=== PATIENT | female | born 1935 | race Caucasian/White ===

== ENCOUNTER 2023-04-18 08:23 | Emergency (ER) | payer OTHER, SELFPAY ==
--- NOTE | 2023-04-18 08:32 | ED.MUSCINJ ---
HPI-Injury
General
Chief Complaint: Musculo-Skeletal Complaint
Source: patient
Exam Limitations: none
Time Seen by Provider: 04/18/23 08:32
Nursing documentation reviewed up to this point in time: agreed with
History of Present Illness-Injury
Initial Injury comments:
88-year-old female with history of asthma, HLD, arthritis bilateral hip replacements, presents stating she slept in her recliner last night and this morning she bent way forward to reach her shoes on the floor and developed sudden right hip pain.
She was able to get up and walk to the bathroom, off and on the toilet and back to her chair with her walker. Hip pain persists, it is now 2/10.' Something does not feel right' in the hip.
Past History
Past History
ED Past Medical History: Asthma, Hypercholesterolemia and Other (arthritis)
ED Past Surgical History: Appendectomy, Cholecystectomy and Orthopedic (Bilateral knee replacements, bilateral hip replacements)
Social History
Tobacco: Non-smoker
Alcohol: None
Drug: None
Personal: Single
Living: with family (Lives with daughter)
Review of Systems
Review of Systems
Allergies reviewed?: Yes
All Other Systems: ROS reviewed and negative except as documented in HPI and ROS
Constitutional: Denies fever
Respiratory: Denies trouble breathing
Cardiac: Denies chest pain
ABD/GI: Denies abdominal pain
: Denies dysuria or difficulty voiding
Musculoskeletal: Reports other (Right hip pain)
Skin: Reports no symptoms
Phy Exam
Physical Exam
Physical Exam:
GENERAL: No acute distress. A&Ox3.
CONSTITUTIONAL: Afebrile.
RESPIRATORY: Regular respirations, nonlabored, lungs clear.
CARDIOVASCULAR: Regular rate and rhythm, no murmurs, no rubs.
GI: Soft, nontender, normal BS
MUSCULOSKELETAL: Lateral aspect of right hip is tender to palpate. She can bend her knee and SLR to 20 degrees of bed with pain. Well perfused. No edema
SKIN: Warm, dry, pink
PSYCH: Normal mood and affect. Well kept, interactive and appropriate
NEUROLOGIC: Awake, alert and oriented. No focal neurological deficits
Injury Course
Orders/Labs/Results
Orders:
Orders
04/18/23 08:38
Hip, Right 2-3 Views [CR Hip - RT w/wo Pel 2-3 Vw*] Urgent
Comment:
Reason For Exam: felt pain reaching down
Include a pelvis x-ray?: No
04/18/23 09:23
Acetaminophen [Tylenol] 1,000 mg PO NOW STA
04/18/23 09:24
Acetaminophen [Tylenol] 1,000 mg .ROUTE .STK-MED ONE
04/18/23 09:36
Acetaminophen 1000MG/100Ml [Ofirmev] 1,000 mg in 100 ml IV ONCE
Acetaminophen IV Indication:: No AK & No Enteral Access
MDM/Problems Addressed
Differential Diagnosis Includes:
hip sprain, dislocation, fracture
MDM/Problems Addressed:
88-year-old female with history of asthma, HLD, arthritis bilateral hip replacements, presents stating she slept in her recliner last night and this morning she bent way forward to reach her shoes on the floor and developed sudden right hip pain.
She was able to get up and walk to the bathroom, off and on the toilet and back to her chair with her walker. Hip pain persists, it is now 2/10.' Something does not feel right' in the hip.
NAD, alert, pleasant
04/18/2023 1120 AM
Hip x-ray read by this examiner, no acute abnormality, specifically no fracture and no dislocation of hardware.
Discussed occult fractures with pt and daughter, they will f/u if not improving
Patient has been out of bed and ambulating
*Critical Care Note
Total Time (30-74mins, 75-104mins- exclusive of procedures): Not Applicable
Patient Management
Social determinants of health affecting care: Strong social support
ED Attending Note
-
Portions of this chart may have been created with voice recognition software.� Occasional wrong word or��sound alike� substitutions may have occurred due to the inherent limitations of voice recognition software.
Discharge Plan
Departure
Patient Disposition: Home (Routine Discharge)
Date of Disposition: 04/18/23
Time of Disposition: 11:17
Patient with high blood pressure during this ER visit?: No
Condition: Good
Discharge Problem:
Soft tissue injury of right hip
Instructions: Muscle Strain (DC), Hip Pain ED
Prescriptions:
No Action
levothyroxine 88 MCG tablet
88 mcg PO DAILY
calcium carbonate 500 MG tablet
500 mg PO DAILY
diphenhydramine-acetaminophen [Tylenol PM Extra Strength] 1 EACH tablet
2 ea PO HS
sertraline 50 MG tablet
50 mg PO DAILY
rosuvastatin [Crestor] 5 mg Tablet
5 mg PO Q48H
Centrum Silver 1 EACH tablet
1 ea PO DAILY
cholecalciferol (vitamin D3) [Vitamin D3] 2,000 UNIT capsule
2,000 unit PO DAILY
Myrbetriq 50 MG tablet extended release 24 hr
50 mg PO DAILY
rosuvastatin [Crestor] 5 mg Tablet
2.5 mg PO Q48H
celecoxib [Celebrex] 200 mg Capsule
200 mg PO DAILY
pantoprazole [Protonix] 40 mg Tablet,Delayed Release (Dr/Ec)
40 mg PO DAILY
oxybutynin chloride 5 mg Tablet Extended Release 24hr
5 mg PO DAILY
Referrals:
Dee Long, DO [Family Provider] - As needed
Activity Restrictions/Additional Instructions:
As we discussed, your hip x-ray shows nothing worrisome.
Tylenol as needed for pain.
See your primary doctor or your orthopedic doctor if your hip is not a lot better in 1 week or not 100% better in 2 to 3 weeks.
Use your walker at all times when up and around until the hip feels better.
Interventions
Interventions:
*Risk Screen - Suicide Last Done: 04/18/23 09:30
*General Assessment Last Done: 04/18/23 09:30
*Neglect/Abuse Screening Last Done: 04/18/23 09:30
ED- Fall Risk Assessment Last Done: 04/18/23 09:30
*ED COVID-19 Vaccine History Last Done: 04/18/23 12:10
*Nursing Disposition Last Done: 04/18/23 12:10
ED-Musculoskeletal Assessment Last Done: 04/18/23 09:30
Discharge Date and Time
Discharge Date/Time: 04/18/23 12:10
[2023-04-18 08:36] VITALS: BP 129/65
[2023-04-18] MEDS: TYLENOL 1000 MG PO (09:34)
[2023-04-18 11:55] VITALS: BP 121/56
== END 2023-04-18 12:10 | disposition home or self-care (01) ==
LOC: EMR 08:23
PROVIDERS: EMERGENCY PHYSICIAN Emergency Medicine; FAMILY PHYSICIAN Family Medicine
DX: S79.911A Unspecified injury of right hip, initial encounter (principal); X50.1XXA Overexertion from prolonged static or awkward postures, initial encounter; J45.909 Unspecified asthma, uncomplicated; E78.00 Pure hypercholesterolemia, unspecified; Z96.643 Presence of artificial hip joint, bilateral
CPT/HCPCS: 99283; 73502

== ENCOUNTER 2023-07-09 01:46 | Inpatient (IN) | payer OTHER, SELFPAY ==
[2023-07-08 20:20] VITALS: BP 116/62; BMI 20.6
[2023-07-08 21:13] VITALS: BP 147/48
--- NOTE | 2023-07-08 21:43 | ED.GENMED ---
History of Present Illness
General
Chief Complaint: Abdominal Symptoms
Source: patient
Exam Limitations: none
Time Seen by Provider: 07/08/23 21:26
Nursing documentation reviewed up to this point in time: agreed with
Travel History
Have you had any contact with someone who has COVID-19?: No
Do you have any symptoms of coronavirus? Fever > 100 degrees, chills, cough, shortness of breath, sore throat, loss of taste or smell, muscle aches, or headache?: No
History of Present Illness
History of Present Illness:
88-year-old female with a past medical history of asthma, hyperlipidemia, hypothyroidism who presents to the emergency room accompanied by her daughters for evaluation of nausea, vomiting, abdominal pain. Patient reports onset of symptoms this
evening around 6 or 7 PM�she was apparently eating dinner and had small amount of food and about a half a glass of wine and began to feel acutely nauseated and had multiple episodes of vomiting/dry heaving. She says she has had shaking chills since
then. She came to the emergency room for assessment. She says she has had occasional upper abdominal discomfort and belching with meals recently but never severe nausea and vomiting like this. She did have some loose stools yesterday morning but
no diarrhea today. She denies any recent URI symptoms. She denies any chest pain. She denies any shortness of breath. She denies any headache. Denies any dizziness. She denies any other complaints. She is status post cholecystectomy, denies
any other abdominal surgeries.
Past History
Past History
ED Past Medical History: Asthma, Hypercholesterolemia and Other (arthritis)
ED Past Surgical History: Appendectomy, Cholecystectomy and Orthopedic (Bilateral knee replacements, bilateral hip replacements)
Social History
Tobacco: Non-smoker
Alcohol: None
Drug: None
Personal: Single
Living: with family (Lives with daughter)
Review of Systems
Review of Systems
All Other Systems: ROS reviewed and negative except as documented in HPI and ROS
Constitutional: Denies fever or chills
Respiratory: Denies cough or trouble breathing
Cardiac: Denies chest pain or palpitations
ABD/GI: Reports abdominal pain, nausea, vomiting and diarrhea
: Denies dysuria, frequency or flank pain
Musculoskeletal: Denies neck pain or back pain
Neurological: Denies dizzy, headache, weakness or numbness
Phy Exam
Physical Exam
Physical Exam:
General: Awake, alert; holding emesis bag and occasionally dry heaving
Head: Normocephalic, atraumatic
Eyes: Conjunctiva normal, sclera anicteric
Throat: Airway intact, handling secretions
Neck: Trachea midline, supple without meningismus
Lungs: Clear to auscultation bilaterally, no wheezing, rales, rhonchi
Heart: Regular rate and rhythm, no murmurs, gallops, or rubs
Abd: Soft, non distended, mildly tender across the upper abdomen
Neuro: Cranial nerves grossly intact, speech fluid
Skin: no rash
Extremities: No edema in extremities, equal pulses in all extremities
Scores
Heart Failure Risk
Heart Failure Risk Score: Not Applicable
Heart Score for Chest Pain Patients
STEMI patient?: Not applicable
Withdrawal Assessment of Alcohol
Withdrawal Assessment Completed?: Not applicable
Course
Orders/Labs/Results
Orders:
Orders
07/08/23 20:25
EKG [Electrocardiogram (*1)] Urgent
Reason for Study: Abdominal Pain
EKG- Treatment ONCE
07/08/23 21:42
CT Abd/pelvis W Iv Cont Urgent
Comment:
Reason For Exam: abd pain, N/V
07/08/23 21:43
0.9% Sodium Chloride 1000 ml [Nss] 1,000 ml IV BOLUS
Ondansetron Injectable [Zofran] 4 mg IV NOW STA
07/08/23 21:47
COVID-19 Antigen Urgent
Source: Nasal Swab
Complete Blood Count/With Diff Urgent
Comprehensive Metabolic Panel Urgent
Lipase Urgent
Magnesium Urgent
Troponin I Urgent
07/08/23 21:57
CR Obstruct Series W/pa Chest Urgent
Comment:
Reason For Exam: N/V, abd pain
07/08/23 23:44
Urinalysis Reflex To Culture Urgent
Date Specimen was Collected: 07/08/23
Time Specimen was Collected: 23:43
Abnormal Lab Results
07/08/23
21:47
WBC 15.4 H 10^3/uL
(4.8-10.8)
RBC 3.54 L 10^6/uL
(4.20-5.40)
Hgb 11.0 L g/dL
(12.0-16.0)
Hct 32.9 L %
(37.0-47.0)
MCH 31.1 H pg
(27.0-31.0)
MPV 10.7 H fL
(7.4-10.4)
Abs Immat Gran (auto) 0.1 H 10^3/uL
(0-0.05)
Absolute Neuts (auto) 13.1 H 10^3/uL
(1.4-6.5)
Immature Gran % 0.6 H %
(0-0.5)
Neutrophils % 85.0 H %
(42.2-75.2)
Lymphocytes % 9.5 L %
(20.5-51.1)
BUN 27 H mg/dl
(7-17)
Glucose 150 H mg/dl
(70-99)
Alkaline Phosphatase 133 H U/L
(38-126)
07/08/23 21:47
07/08/23 21:47
Vital Signs
Initial and Last Documented VS:
Initial Vital Signs
Temp Pulse Resp BP Pulse Ox
36.1 C 58 18 116/62 100
07/08/23 20:20 07/08/23 20:20 07/08/23 20:20 07/08/23 20:20 07/08/23 20:20
Last Documented Vital Signs
Temp Pulse Resp BP Pulse Ox
36.1 C 50 17 147/48 97
07/08/23 20:20 07/08/23 22:30 07/08/23 22:30 07/08/23 21:13 07/08/23 22:30
Procedures
IV Access
Indication: RN unable to obtain and Physician skill needed
Performed by:: Lit Guerra MD
Site:: left forearm
Gauge:: 20G
Ultrasound Guidance: No
MDM/Problems Addressed
Differential Diagnosis Includes:
Gastritis, pancreatitis, bowel obstruction, gastroenteritis, anginal equivalent
MDM/Problems Addressed:
88-year-old female presents to the emergency room for evaluation of nausea and vomiting with abdominal discomfort since eating dinner tonight. She arrives to us with normal vital signs. Physical exam as above. EKG shows no STEMI. Plan to place
an IV will treat with antiemetic and fluids. Will send labs including CBC and CMP, lipase, troponin. Will start with obstruction series but plan likely for CT abdomen pelvis. Will monitor closely reassess after the above.
Labs reviewed: CBC shows leukocytosis to 15.4, marginal anemia. CMP no clinically significant abnormalities. Troponin undetectable. Her lipase was normal. Her obstruction series showed no clear signs of obstruction but she does have gastric
distention and likely hiatal hernia. Will follow-up with CT of the abdomen pelvis. Clinical reassessment nausea greatly improved with Zofran, no longer vomiting. Continue to monitor.
CT abdomen pelvis read by [facility] very large hiatal hernia with marked gastric distention�there is a question of gastric volvulus. Case discussed with general surgery to review. Recommended NG tube for decompression. Will plan to admit
for continued management and surgical consultation. Discussed with hospitalist for admission.
*Radiology
Radiology exam reviewed: radiology read reviewed
*Pulse Oximetry
Patient hypoxic: no
*EKG
Interpreted by ED Provider?: Yes
Heart Rate: 44
Rate: bradycardiac
Rhythm: sinus and sinus arrhythmia
Furman: normal axis
Interval: first degree heart block
QRS Pattern: right bundle branch block
Ischemia: no ischemia
*Critical Care Note
Total Time (30-74mins, 75-104mins- exclusive of procedures): Not Applicable
Data Reviewed
Review of Other/Old Records Reveals: Labs and Records
Source: patient, records and family
Patient Management
Discussion with other providers: Hospitalist (Discussed with hospitalist) and Back Wedger (Discussed with general surgery)
Escalation/DeEscalation of care consider admission/obs:
Admission indicated
ED Attending Note
-
Portions of this chart may have been created with voice recognition software.� Occasional wrong word or��sound alike� substitutions may have occurred due to the inherent limitations of voice recognition software.
Discharge Plan
Departure
Patient Disposition: Admit
Date of Disposition: 07/08/23
Time of Disposition: 23:52
Admit to doctor: Erich
Presentation/result/management discussed w/ accepting MD/DO: Hospitalist
Discharge Problem:
Hernia, hiatal, Nausea & vomiting
Prescriptions:
No Action
levothyroxine 88 MCG tablet
88 mcg PO DAILY
calcium carbonate 500 MG tablet
500 mg PO DAILY
diphenhydramine-acetaminophen [Tylenol PM Extra Strength] 1 EACH tablet
2 ea PO HS
sertraline 50 MG tablet
50 mg PO DAILY
rosuvastatin [Crestor] 5 mg Tablet
5 mg PO Q48H
Centrum Silver 1 EACH tablet
1 ea PO DAILY
cholecalciferol (vitamin D3) [Vitamin D3] 2,000 UNIT capsule
2,000 unit PO DAILY
Myrbetriq 50 MG tablet extended release 24 hr
50 mg PO DAILY
rosuvastatin [Crestor] 5 mg Tablet
2.5 mg PO Q48H
celecoxib [Celebrex] 200 mg Capsule
200 mg PO DAILY
pantoprazole [Protonix] 40 mg Tablet,Delayed Release (Dr/Ec)
40 mg PO DAILY
oxybutynin chloride 5 mg Tablet Extended Release 24hr
5 mg PO DAILY
Referrals:
Dee Long DO [Family Provider] -
Interventions
Interventions:
*Risk Screen - Suicide Last Done: 07/08/23 20:20
*Neglect/Abuse Screening Last Done: 07/08/23 20:20
ED- Fall Risk Assessment Last Done: 07/08/23 20:20
CM-Nikinw-Qyorhusklt Assessment Last Done: 07/08/23 22:56
Discharge Date and Time
Print Language: GUAMANIAN
[2023-07-08] MEDS: ZOFRAN 4 MG IV (21:54)
[2023-07-08] MEDS: NSS 1000 IV (21:55)
[2023-07-08 21:58] LABS: % Basophils 0.3 % (0-2); % Eosinophils 0.4 % (0-6); % Immature Granulocytes 0.6 % (0-0.5); % Lymphocytes 9.5 % (20.5-51.1); % Monocytes 4.2 % (1.7-9.3); Absolute Basophils 0.1 10^3/uL (0-0.2); Absolute Eosinophils 0.1 10^3/uL (0-0.7); Absolute Immature Granulocytes 0.1 10^3/uL (0-0.05); Absolute Lymphocytes 1.5 10^3/uL (1.2-3.4); Absolute Monocytes 0.6 10^3/uL (0.1-0.6); Absolute Neutrophils 13.1 10^3/uL (1.4-6.5); Hematocrit 32.9 % (37.0-47.0); Mean Corp Hgb Conc. 33.4 g/dL (33.0-37.0); Mean Corpuscular Hgb 31.1 pg (27.0-31.0); Mean Corpuscular Volume 92.9 fL (81.0-99.0); Mean Platelet Volume 10.7 fL (7.4-10.4); Nucleated Red Blood Cells % 0 %; Platelet Count 138 10^3/uL (130-400); Red Blood Cell Count 3.54 10^6/uL (4.20-5.40); Red Cell Dist. Width 12.6 % (11.5-14.5); White Blood Cell Count 15.4 10^3/uL (4.8-10.8)
[2023-07-08 22:13] LABS: ALT (SGPT) 12 U/L (0-35); AST (SGOT) 30 U/L (14-36); Albumin 4.8 g/dl (3.5-5.0); Alkaline Phosphatase 133 U/L (38-126); Blood Urea Nitrogen 27 mg/dl (7-17); Calcium 9.8 mg/dl (8.4-10.2); Carbon Dioxide 26 mmol/L (22-30); Chloride 104 mmol/L (98-107); Estimated Creatinine Clearance 49 ml/min; Glucose 150 mg/dl (70-99); Lipase 285 U/L (23-300); Magnesium 2.1 mg/dl (1.6-2.3); Potassium 3.7 mmol/L (3.5-5.1); Sodium 140 mmol/L (135-145); Total Bilirubin 0.7 mg/dl (0.2-1.3); Total Protein 6.9 g/dl (6.3-8.2); eGFR > 60.00
[2023-07-08 22:25] LABS: Troponin I < 0.012 ng/ml
[2023-07-08 22:40] LABS: COVID-19 Antigen Negative (Negative)
[2023-07-09] VITALS (13 sets, daily range): BP systolic 128–178; BP diastolic 69–97; PULSE 78–98; O2SAT 96; BMI 20.6
[2023-07-09 00:04] LABS: Urine Albumin Trace (Neg - Trace); Urine Bilirubin Negative (Negative); Urine Character Clear (Clear); Urine Color Yellow; Urine Glucose 1+ (Negative); Urine Ketone Trace (Negative); Urine Leukocyte 2+ (Negative); Urine Nitrite Negative (Negative); Urine Occult Blood Trace (Negative); Urine Urobilinogen Negative (Neg - 1+); Urine pH 6.5 (5.0-9.0)
[2023-07-09 00:58] LABS: Urine Amorphous Seen; Urine Squamous Cell >30 /LPF (Few)
[2023-07-09 01:01] LABS: Urine Bacteria Moderate (Negative)
--- NOTE | 2023-07-09 01:10 | HPS.HSE ---
Family Physician
-
Family Physician: Dee Long
Chief Complaint
-
Nausea
History of Present Illness
Patient is an 88y F with PMH significant for hiatal hernia / GERD, hypothyroidism and depression who presents to ED complaining of nausea and abdominal discomfort. Patient states that she has noted frequent belching / indigestion symptoms for
the past several months or a year. This evening, she was sitting at dinner with her family when she developed severe nausea. She had some mild upper abdominal discomfort that quickly resolved. Patient did not have any emesis. She presented to
the ED for evaluation and was noted on CT scan to have gastric outlet obstruction secondary to hiatal hernia with possible volvulus.
NG was placed for decompression and patient is to be admitted for further evaluation.
Patient denies any episodes of emesis. She has not had significant abdominal pain, chest pain, etc.
She had an episode of diarrhea / fecal incontinence last week - which happens on occasion when she drinks coffee. Otherwise no bowel issues.
Patient states that she developed palpitations recently and her dose of T4 was reduced as a result.
No other recent complaints.
No other recent med changes.
Family notes that patient has been losing weight - perhaps 10 lbs weight loss over the past year - unintentional.
Medical History
Past Medical History
Past Medical History: Reports Other
Additional Past Medical History:
Hypothyroidism
Asthma
Anxiety / Depression
Hiatal Hernia / GERD
OAB
Heart Murmur / Aortic Stenosis (mild - 2020)
Past Surgical History: Reports Other
Additional Past Surgical History:
Bilateral TKA
Bilateral SUKHWINDER
Partial Hysterectomy
Cholecystectomy
Social History
Tobacco: Non-smoker
Alcohol: Occasional
Drug: None
Family History
Family History: Not pertinent
Allergies / Home Medications
Allergies reflects when Allergies were last updated in [email or web address].
Home Medications with original date entered in [email or web address]
Allergy/Medication List:
Allergies
Allergy/AdvReac Type Severity Reaction Status Date / Time
No Known Allergies Allergy Verified 07/08/23 20:24
Home Medications
sertraline 50 mg tablet 50 mg PO DAILY 01/06/19
celecoxib 200 mg capsule (Celebrex) 200 mg PO DAILY 02/09/23
levothyroxine 75 mcg tablet 75 mcg PO DAILY 07/09/23
pantoprazole 40 mg granules delayed-release for susp in packet (Protonix) 40 mg PO DAILY 07/09/23
rosuvastatin 5 mg tablet 5 mg PO DAILY 07/09/23
Review of Systems
-
History Source: Patient
A 12 point ROS was completed and negative except as noted: Yes
Constitutional: Denies Fever or Chills
EENT: Denies Sore Throat
Respiratory: Denies Cough or Trouble Breathing
Cardiac: Reports Palpitations; Denies Chest Pain
Abdomen/GI: Reports Abdominal Pain, Nausea and Other (Bruxism); Denies Vomiting, Diarrhea, Bloody Stools or Black Stools
: Denies Dysuria, Frequency or Flank Pain
Musculoskeletal: Denies Joint Pain or Edema
Neurological: Denies Dizzy or Headache
Psych: Denies Depression or Anxiety
Physical Exam
Vital Signs
Vital Signs
Temp Pulse Resp BP Pulse Ox
97 F 49 25 147/48 97
07/08/23 20:20 07/09/23 00:00 07/09/23 00:00 07/08/23 21:13 07/09/23 00:00
Physical Exam
General: Other (88y F in no acute distress.)
HEENT: Moist mucous membranes, PERRLA and Other (NG in place in the R nostril draining light crump gastric contents with occasional bright red blood.)
Respiratory: Clear; No Wheezes, Rales or Rhonchi
Cardiac: S1/S2, Irregular Rhythm and Murmur (III/ TOREY)
GI: Soft, Non Distended, Normal Bowel Sounds and Other (Mildly tender in LUQ / epigastric region. No rebound / guarding.)
Musculoskeletal: No Clubbing, No Cyanosis and No Edema
Neuro: AO x 3 and Nonfocal/grossly intact
Laboratory Results
-
07/08/23:47
07/08/23:47
Laboratory Results
Total Bilirubin 0.7 mg/dl (0.2-1.3) 07/08/23:47
AST 30 U/L (14-36) 07/08/23:
ALT 12 U/L (0-35) 07/08/23:
Alkaline Phosphatase 133 U/L (38-126) H 07/08/23:47
Troponin I < 0.012 ng/ml 07/08/23:
Lipase 285 U/L (23-300) 07/08/23:47
Impression/Plan
-
A/P: Patient is an 88y F with PMH significant for hypothyroidism and depression who presents to ED complaining of severe nausea this evening.
Gastric Outlet Obstruction
Hiatal Hernia
Possible Gastric Volvulus
- Admit for further evaluation and treatment.
- Continue NG decompression.
- Supportive care, NPO, IVFs, antiemetics, etc.
- BID PPI - IV for now.
- Surgery evaluation for additional recommendations.
- Follow for any new / worsening symptoms.
Leukocytosis
- Suspect this is reactive due to acute process.
- Patient is afebrile and not toxic-appearing.
- Observe off of abx for now.
- Check lactate level.
- Follow for any fever, new symptoms, etc.
Sinus Arrhythmia
- Patient with sinus arrhythmia noted on tele and EKG.
- She reports recent palpitations and resultant decrease in her T4 supplementation.
- Monitor on telemetry.
- Rhythm does not appear consistent with A-Fib.
- Consider Cardiology evaluation if any new / worsening arrhythmia.
Hypothyroidism
- Recent decrease in T4 dose from 88mcg to 75mcg per patient.
- Hold for now while NPO.
- Consider IV replacement if patient remains NPO for prolonged period.
Anxiety / Depression
- Stable. Holding Zoloft acutely while NPO.
DVT Prophylaxis: SCDs
Code Status: DNR
[2023-07-09 02:29] LABS: Lactic Acid 1.2 mmol/L (0.7-2.0)
[2023-07-09] MEDS: LR 1000 IV ×2 (02:30→13:33)
--- NOTE | 2023-07-09 06:12 | PTCARENOTE ---
House uniform force captain aware of high BPs throughout the night, no new orders at this time.
--- NOTE | 2023-07-09 06:20 | W.PN.UPDATE ---
Update Note
Progress Note Update
RN notified WOOD FLOORING SPECIALIST of BP 170's/80's HR 40's, Patient asymptomatic, did repeat EKG shows NSR with 1st degree HB.
[2023-07-09 07:54] LABS: Hemoglobin 10.9 g/dL (12.0-16.0); Mean Corpuscular Hgb 31.2 pg (27.0-31.0); Mean Corpuscular Volume 94.6 fL (81.0-99.0); Mean Platelet Volume 11.4 fL (7.4-10.4); Platelet Count 119 10^3/uL (130-400); Red Blood Cell Count 3.49 10^6/uL (4.20-5.40); Red Cell Dist. Width 12.5 % (11.5-14.5); White Blood Cell Count 10.1 10^3/uL (4.8-10.8)
[2023-07-09] MEDS: NSS (PRESERVATIVE FREE) 10 ML IV ×2 (07:58→20:07)
[2023-07-09] MEDS: PROTONIX IV 40 MG IV ×2 (07:58→20:07)
[2023-07-09] MEDS: FLUSH (NSS) 2 FLUSH IV (07:58)
--- NOTE | 2023-07-09 08:08 | CON.GS ---
Consultation
-
Reason for Consultation: Hiatal hernia with gastric outlet obstruction
Medical History
-
Chief Complaint: Abdominal pain, dry heaves
History of Present Illness:
Patient is a 88-year-old female who was in her usual baseline state of health until yesterday evening when she developed the acute onset of abdominal pain, bloating/distention and dry heaves during dinner with her friends. It was rather abrupt in
onset. She had to excuse herself from the dinner table and went to the bathroom when she thought she was going to vomit but could not. This prompted her to present to the emergency department for evaluation yesterday evening. She was found to
have a paraesophageal hernia with resultant gastric volvulus/gastric outlet obstruction.
Patient states that she was unaware of the presence of her hiatal hernia prior to this. She has had occasional slight/mild dysphagia but has never thought much of it. She is treated for GERD and only has mild heartburn symptoms.
Past Medical History
Past Medical History: Other (GERD, hypothyroidism, asthma, aortic stenosis last documented as mild in 2020 on echo)
Past Surgical History: Other (Bilateral total knee, bilateral hip, partial hysterectomy, cholecystectomy)
Social History
Tobacco: Non-Smoker
Alcohol: Occasional
Living: Other (Lives in [address] [place] [address] community, independent living with her daughter)
Family History
Family History: Reviewed & Not Pertinent
Allergies / Home Medications
Allergy/AdvReac Type Severity Reaction Status Date / Time
No Known Allergies Allergy Verified 07/08/23 20:24
�Medication �Instructions �Recorded �Confirmed �Type
sertraline 50 mg tablet 50 mg PO DAILY 01/06/19 07/09/23 History
celecoxib 200 mg capsule (Celebrex) 200 mg PO DAILY 02/09/23 07/09/23 History
levothyroxine 75 mcg tablet 75 mcg PO DAILY 07/09/23 07/09/23 History
pantoprazole 40 mg granules 40 mg PO DAILY 07/09/23 07/09/23 History
delayed-release for susp in packet
(Protonix)
rosuvastatin 5 mg tablet 5 mg PO DAILY 07/09/23 07/09/23 History
Review of Systems
-
History Source: Patient
All other systems: Negative unless noted
A 10 point review of systems was completed, and was negative except as per HPI.
Physical Exam
Vital Signs
Temp Pulse Resp BP Pulse Ox
98.9 F 78 18 164/79 97
07/09/23 07:15 07/09/23 07:15 07/09/23 07:15 07/09/23 07:15 07/09/23 07:15
07/08/23 07/09/23 07/10/23
06:59 06:59 06:59
Actual Weight 54.431 kg
Body Mass Index (BMI) 20.6
Lab Results
07/09/23 06:18
WBC 10.1 10^3/uL (4.8-10.8) 07/09/23 06:18
Hgb 10.9 g/dL (12.0-16.0) L 07/09/23 06:18
Hct 33.0 % (37.0-47.0) L 07/09/23 06:18
Plt Count 119 10^3/uL (130-400) L 07/09/23 06:18
Abs Immat Gran (auto) 0.1 10^3/uL (0-0.05) H 07/08/23 21:47
Neutrophils % 85.0 % (42.2-75.2) H 07/08/23 21:47
Physical Exam
General: Well Developed, Well Nourished, No Apparent Distress, Comfortable and Other (Elderly but appears younger than stated age)
HEENT: Normocephalic, Anicteric and Moist Mucous Membranes
Respiratory: Non Labored Respirations
Cardiac: Regular Rhythm
GI: Soft, Non Tender, Non Distended and Other (No rebound rigidity or guarding)
Skin: Warm
Neuro: AO x 3
Psych: Calm
Data Reviewed
-
Radiology: Image Personally Visualized and interpreted, Discussed with Physician, Discussed with Patient and Discussed with Family
CT Scan: Image Personally Visualized and interpreted, Discussed with Physician, Discussed with Patient and Discussed with Family
Labs: Labs Reviewed by me
Assessment / Plan
-
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
Patient has gotten considerable relief with NG tube decompression indicating probable detorsion with initial decompression.
There is currently minimal drainage in the canister at hospital bedside.
Abdominal examination benign with essentially no tenderness and no significant distention or succussion splash in the left upper quadrant.
AFVSS this a.m.
Plan: Obtain abdominal x-ray to evaluate for NG tube position and gastric distention
Otherwise maintain NG tube decompression for now, n.p.o., IV fluid hydration
Briefly discussed with patient treatment options which would include either formal surgical correction of her hiatal hernia versus gastropexy to reduce the risk of torsion/organoaxial volvulus. Given patient's advanced age I advised her that I
would lean towards laparoscopic gastropexy over formal repair.
[2023-07-09 08:09] LABS: Blood Urea Nitrogen 21 mg/dl (7-17); Calcium 9.6 mg/dl (8.4-10.2); Carbon Dioxide 23 mmol/L (22-30); Chloride 104 mmol/L (98-107); Estimated Creatinine Clearance 57 ml/min; Glucose 123 mg/dl (70-99); Potassium 4.1 mmol/L (3.5-5.1); Sodium 140 mmol/L (135-145); eGFR > 60.00
[2023-07-09 08:29] LABS: TSH Reflex To Free T4 0.06 uIU/ml (0.47-4.68)
[2023-07-09 08:58] LABS: Free T4 1.44 ng/dl (0.78-2.19)
--- NOTE | 2023-07-09 10:12 | W.PN.UPDATE ---
Update Note
Progress Note Update
Patient seen and examined after post midnight admission. Denies CP/SOB/abd pain. Vital signs stable. No acute distress, regular rate and rhythm, normal S1-2, 3/6 harsh systolic murmur. Clear to auscultation bilaterally. Positive bowel sounds,
soft, nontender, nondistended. Case discussed with surgery. NG tube has likely decompressed and realigned her stomach. Will check an abdominal x-ray today. Dr. Pelletier did mention that the patient had mild aortic stenosis in the past. The
question of repeat echocardiogram came up and I do think this is reasonable considering the patient's advanced age. I have also reviewed the patient's ECGs. She had marked sinus bradycardia on her initial ECG with first-degree AV block. Her
subsequent ECG with T wave inversions in the anterior leads. Considering all of this I think it is reasonable for cardiology to assess regarding perioperative cardiovascular risk assessment for noncardiac surgery.
--- NOTE | 2023-07-09 13:22 | CON.CAR ---
Consultation
Consultation Request
Date/Time Consultation Requested: July 09, 2023
Date/Time Consultation Performed: July 09, 2023
Requesting Provider: Hospitalist
Performing Provider: Lukasz
Reason for Consultation: Preop cardiovascular exam
Medical History
-
Chief Complaint: Nausea
History of Present Illness:
88-year-old female with history of hiatal hernia/heartburn, hypothyroidism, mild aortic stenosis, and depression who is here today for nausea and abdominal discomfort. The patient says that she had noticed over the last couple of months to a year
frequent belching and indigestion. However, yesterday evening she was at dinner with her family and she developed severe nausea. She had some upper abdominal discomfort as well but then that quickly resolved. She did not have any emesis. She
then presented to the emergency room for further evaluation. On CT scan she was noted to have gastric outlet obstruction secondary to I hiatal hernia and possible volvulus. An NG tube was then placed for decompression and she was admitted for
further evaluation. Additionally, she tells me she is able to walk a flight of stairs without any issue. Her main concern with ambulation is balance issues and she would not want to fall.
ECG shows sinus rhythm with first-degree AV block and right bundle branch block
Past Medical History
Past Medical History: Other (hiatal hernia/heartburn, hypothyroidism, mild aortic stenosis, and depression)
Past Surgical History: Other (Bilateral TKA Bilateral SUKHWINDER Partial Hysterectomy Cholecystectomy)
Social History
Tobacco: Non-Smoker
Alcohol: Occasional
Drug: None
Family History
Family History: Reviewed & Not Pertinent
Allergies / Home Medications
Allergy/AdvReac Type Severity Reaction Status Date / Time
No Known Allergies Allergy Verified 07/08/23 20:24
�Medication �Instructions �Recorded �Confirmed �Type
sertraline 50 mg tablet 50 mg PO DAILY 01/06/19 07/09/23 History
celecoxib 200 mg capsule (Celebrex) 200 mg PO DAILY 02/09/23 07/09/23 History
levothyroxine 75 mcg tablet 75 mcg PO DAILY 07/09/23 07/09/23 History
pantoprazole 40 mg granules 40 mg PO DAILY 07/09/23 07/09/23 History
delayed-release for susp in packet
(Protonix)
rosuvastatin 5 mg tablet 5 mg PO DAILY 07/09/23 07/09/23 History
Review of Systems
-
All other systems: Negative unless noted
Physical Exam
Vital Signs
Temp Pulse Resp BP Pulse Ox
97.6 F 84 18 148/74 97
07/09/23 10:55 07/09/23 10:55 07/09/23 10:55 07/09/23 10:55 07/09/23 10:55
Lab Results
07/09/23 06:18
07/09/23 06:18
Troponin I < 0.012 ng/ml 07/08/23 21:47
Physical Exam
General: Well Developed and No Apparent Distress
HEENT: Normocephalic
Respiratory: Clear and Non Labored Respirations
Cardiac: S1/S2 and Murmur (3/6 systolic murmur )
GI: Soft
Musculoskeletal: No Clubbing, No Cyanosis and No Edema
Skin: Warm and Dry
Neuro: AO x 3
Psych: Calm
Impression / Plan
-
88-year-old female with history of hiatal hernia/heartburn, hypothyroidism, mild aortic stenosis, and depression who is here today for nausea and abdominal discomfort found to have gastric outlet obstruction secondary to a type III paraesophageal
hernia with resultant organoaxial volvulus.
Preop cardiovascular exam
-Mehnaz has no significant symptoms of ischemia, heart failure, or arrhythmia. She is likely a moderate risk candidate given her age and medical history. However, she is able to do at least 1 flight of stairs and achieve greater than 4 METS and
needs no further medications or testing prior to surgery. However, given her history of mild aortic stenosis on echocardiogram from July 2020 it is reasonable to update to see if there has been any progression in .
Mild
-Update echocardiogram last was July 2020
Data Reviewed
-
EKG: Tracing Personally Visualized and interpreted (sr)
Medical Tests (Nuc Med, Echo etc): Report Reviewed by me
Labs: Labs Reviewed by me
--- NOTE | 2023-07-09 14:58 | CM ---
CM met with pt bedside along with her two daughters (Etta santamaria by Chandrika and Rowena santamaria by Jorge Albertoaletha)
Pt resides with her dtr/Chandrika in a [place] with [address]
Pt is independent with her ADLs- utilizing a quad for ambulation outdoors, has a WW fo ruse as needed
Pt drives+
Pt has no VN hx and hx of rehab in [place]
Pt has a LTC insurance policy
PCP- Dee Long
Rx- [facility] Pemberton
PT following with recommendations of VN vs SNF
Plan to follow medical tx plan and progression through course of hospitalization
Aware will need [employer] auth if SNF on dc
Discharge Disposition- anticipate home with VN
[2023-07-10] VITALS (17 sets, daily range): BP systolic 105–154; BP diastolic 51–103; BMI 20.7
[2023-07-10] MEDS: LR 1000 IV (02:26)
[2023-07-10 07:40] LABS: Hematocrit 31.8 % (37.0-47.0); Hemoglobin 10.6 g/dL (12.0-16.0); Mean Corp Hgb Conc. 33.3 g/dL (33.0-37.0); Mean Corpuscular Hgb 31.2 pg (27.0-31.0); Mean Corpuscular Volume 93.5 fL (81.0-99.0); Mean Platelet Volume 10.6 fL (7.4-10.4); Platelet Count 143 10^3/uL (130-400); Red Cell Dist. Width 12.7 % (11.5-14.5); White Blood Cell Count 12.1 10^3/uL (4.8-10.8)
[2023-07-10 08:08] LABS: Blood Urea Nitrogen 23 mg/dl (7-17); Calcium 9.5 mg/dl (8.4-10.2); Carbon Dioxide 29 mmol/L (22-30); Chloride 103 mmol/L (98-107); Estimated Creatinine Clearance 57 ml/min; Glucose 86 mg/dl (70-99); Potassium 4.2 mmol/L (3.5-5.1); Sodium 140 mmol/L (135-145); eGFR > 60.00
--- NOTE | 2023-07-10 09:17 | W.PN.CD ---
Addendum entered and electronically signed by Lit Deleon MD 07/10/23 12:52:
-
As anticipated based on murmur her echo shows has progressed to severe.
Cardiac risk is high and anesthesia team needs to be alerted to the severe and consider additional care and monitoring.
Surgery and hospitalist updated via [email or web address] message.
Original Note:
Today's Communication / Plan
-
Await echo
NSQIP for
Impression / Plan
-
88-year-old female with history of hiatal hernia/heartburn, hypothyroidism, mild aortic stenosis (echo 07/2020, mean 25 mmHg/YVETTE est 1.3 cm2), and depression presented nausea and abdominal discomfort found to have gastric outlet obstruction secondary
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
Preop cardiovascular risk assessment
- NSQIP suggests low cardiac risk
- Will see if the echo ordered changes our impression
Mild in 2020
- Echo ordered for today
Subjective:
Feels well. No CP or dyspnea
Physical Exam
Vital Signs/Labs
Vital Signs
Temp Pulse Resp BP Pulse Ox
98.3 F 66 16 143/69 98
07/10/23 07:40 07/10/23 07:40 07/10/23 07:40 07/10/23 07:40 07/10/23 07:40
07/09/23 07/10/23 07/11/23
06:59 06:59 06:59
Actual Weight 54.431 kg
07/10/23 07:20
07/10/23 07:20
Magnesium 2.1 mg/dl (1.6-2.3) 07/08/23 21:47
Free T4 1.44 ng/dl (0.78-2.19) 07/09/23 06:18
LAB Results
07/08/23
21:47
Troponin I < 0.012
Physical Exam
Constitutional: No acute distress
EENT: Anicteric
Cardiovascular: Rhythm & rate is regular, Pedal edema is absent and Systolic murmur present
Respiratory: Respiratory effort normal and Lungs clear to auscul.
GI: Soft and Distention absent
Neuro/Psych: AO x 3
Data Reviewed
-
Date of Service: July 10, 2023
[2023-07-10] MEDS: PROTONIX IV 40 MG IV ×2 (10:10→19:38)
[2023-07-10] MEDS: NSS (PRESERVATIVE FREE) 10 ML IV ×2 (10:10→19:38)
--- NOTE | 2023-07-10 11:05 | PTCARENOTE ---
Pt off the floor for Echo at this time.
--- NOTE | 2023-07-10 12:20 | W.PN.HOSP.TC ---
Today's Communication/Plan
-
see A/P
Assessment / Plan
Assessment / Plan
Patient is an 88y F with PMH significant for hypothyroidism and depression who presented to ED complaining of severe nausea.
A/P:
# Gastric Outlet Obstruction
# Hiatal Hernia
# Possible Gastric Volvulus
Continue NG decompression, cont n.p.o. with IV fluid hydration, PPI IV BID
GS on board, considering options of surgical correction of her hiatal hernia versus gastropexy to reduce the risk of torsion/organoaxial volvulus.
Given patient's advanced age, GS leaning toward laparoscopic gastropexy over formal repair. For OR 07/09
Cardiology on board for preop assessment
daughter at bedside would like to avoid IV Dilaudid, OK with low dose morphine for pain control
# Leukocytosis, suspect reactive due to acute process.
Patient remains afebrile, cont to monitor temp
Observe off of abx for now.
# Mild in 2020
Check echo
# Hypothyroidism
Recent decrease in T4 dose from 88mcg to 75mcg per patient.
Hold for now while NPO.
Consider IV replacement if patient remains NPO for prolonged period.
TSH 0.06, FT4 1.44
# Anxiety / Depression
Stable.
Holding Zoloft acutely while NPO.
DVT Prophylaxis: SCDs
Code Status: DNR
DW daughters at bedside
Anticipated Discharge: > 48 hours
Subjective/Interval History
-
Date of Service: July 10, 2023
Objective Data
-
Labs:
Laboratory Results
07/10/23
07:20
WBC 12.1 H
Hgb 10.6 L
Hct 31.8 L
Plt Count 143 D
Sodium 140
Potassium 4.2
Chloride 103
Carbon Dioxide 29
BUN 23 H
Creatinine 0.6
Glucose 86
Calcium 9.5
Vital Signs:
Vital Signs
Temp Pulse Resp BP Pulse Ox
36.6 C 72 16 130/70 99
07/10/23 11:30 07/10/23 11:30 07/10/23 11:30 07/10/23 11:30 07/10/23 11:30
I&O
07/09/23 07/10/23 07/11/23
06:59 06:59 06:59
Intake Total 2039 / 2039
Output Total 1400 / 1400
Balance 640 / 640
Review of Systems
-
All other systems: Reviewed and negative
Physical Exam
-
General: Well Developed, Well Nourished, No Apparent Distress, Comfortable and Conversant; Negative Respiratory Distress
HEENT: Normocephalic, Atraumatic, Nose Appears Normal and Ears Appear Normal; Negative Oxygen
Respiratory: Clear to Auscultation and Non Labored Respirations; Negative Accessory Resp Muscle Use
Cardiac: Regular Rhythm and S1/S2
GI: Soft and Other (NGT)
Skin: Warm and Dry
Neuro: Awake, Alert, Oriented and AO x 3
Psych: Calm and Intact Judgement/Insight
Data Reviewed
-
Labs: Labs Reviewed by me
--- NOTE | 2023-07-10 12:25 | CM ---
Patient seen in chair with two daughters, discussed PT/OT recommendations of HH vs SNF, patient would prefer to return home with services. Patient agreeable to referral sent to [facility] closer to discharge. Per Hospitalist, patient may be going to
OR. CM will continue to follow for discharge planning needs, will watch for change in PT/OT evals pending medical stay.
Plan; home with [facility] vs SNF, pending further medical evaluation.
--- NOTE | 2023-07-10 13:24 | PTCARENOTE ---
Pt is off the floor at this time to OR.
--- NOTE | 2023-07-10 13:54 | W.PN.SURGUPD ---
Surgical Update
Surgical Update
Patient seen in follow-up earlier this a.m. Daughter at bedside. She is also seen and evaluated now in preoperative holding area.
Overall she is feeling well. No lingering abdominal pain. Some discomfort from NG tube in position. No further nausea or vomiting.
AFVSS
ABD: Soft, nondistended, nontender
NG tube remains in place with continued dark gastric contents
Assessment/plan: 88-year-old female presenting with acute gastric outlet obstruction from gastric volvulus associated with type III paraesophageal hernia
Clinically stable with NG tube decompression
Given degree of NG tube outputs may still have a component of obstruction
I have discussed with the patient, her daughters as well as her brother who is a retired physician treatment options going forward. Option 1 is continued decompression with subsequent upper GI swallow evaluation confirming relief of gastric outlet
obstruction with decompression alone. Subsequent trial of attempted p.o. challenge. Main risk with this approach being high probability of future recurrence and the fact that were not completely sure that she is still at least partially
obstructed. Options 2 which I recommended was a robotic assisted laparoscopic gastropexy to realign her stomach and prevent/minimize the future risk for recurrent obstructive events related to gastric volvulus and a hiatal hernia. She will
continue to likely have a degree of symptoms related to GERD and may be even early satiety/dysphagia but it should be improved to the point of adequate p.o. tolerance for nutritional and hydration needs. Third option, most aggressive is robotic
assisted laparoscopic correction of her paraesophageal hernia with a formal repair. This will be of higher surgical risk both medically and for her recovery.
Particularly in light of her updated echo showing progression of aortic stenosis to severe we have decided to proceed with option a robotic assisted laparoscopic gastropexy, intraoperative EGD. The anticipated operative procedures been fully
reviewed in detail with the patient and her daughters including the operative technique, alternative treatment options, benefits and potential risks of surgery such as but not limited to bleeding, infectious or wound related complications,
iatrogenic injury to surrounding viscera, postoperative dysphagia, gastroparesis or other upper GI symptoms. We also had previously reviewed potential medical risks associated with operative procedure and alignment with the NSQIP surgical risk
calculator as placed in the medical record by the cardiology service.
Patient in agreement to proceed with surgery. Written informed consent was obtained. Have reviewed with hospitalist, sr. media manager, cardiac anesthesiologist who will be managing the procedure.
She will be transferred to the intensive care unit for routine postoperative monitoring after the procedure
--- NOTE | 2023-07-10 14:01 | W.SUR.PREOP ---
Pre-Operative Surgical Note
-
I have examined this patient prior to the performance of the scheduled procedure.
The patient's condition is unchanged from the time of the current History and
Physical and the patient is able to undergo the scheduled procedure.
--- NOTE | 2023-07-10 16:44 | W.IMMPOSTOP ---
Addendum entered and electronically signed by Barney Pelletier MD 07/11/23 14:41:
#[id number]
The assistance of Addis Moore PA-C was required due to the complexity of the procedure. During the procedure Addis Moore PA-C assisted with robotic instrument exchanges, introducing suture material and closure of the incision sites.
Original Note:
Surgical Immed Post Op Note
-
Primary Surgeon: Liyah
Assisting Surgeon: Oscar Patel
Pre-op Diagnosis: Gastric Outlet Obstruction due to hiatal hernia/organoaxial volvulus
Post-op Diagnosis: same
Procedure Performed: Robotic Assisted Laparoscopic Gastropexy/EGD
Anesthesia Type: GETA + 0.25% Marcaine
Specimen / Cultures: none
Estimated Blood Loss: 6mL
Complications: none immediate
Operative Findings: large type IV PEH, organoaxial volvulus of the stomach with persistent obstruction but no ischemia. able to manually reduce and detorse stomach. anterior gastropexy to alvin and subcostal area. large boggy,edematous stomach.
EGD with chronic gastritis but other rivera esophagus/GEJ through pylorus widely patent.
updated daughter post op via phone call
[2023-07-10] MEDS: NSS 1000 IV (18:00)
--- NOTE | 2023-07-10 18:24 | TRANSFER ---
Patient transferred to ICU. Report to Christen, patient awake and alert, dressings checked at bedside. Transferred to ICU bed. Sisi Courtney RN BSN.
--- NOTE | 2023-07-10 18:27 | PTCARENOTE ---
received patient from pacu to room 3357. pt awake, alert, oriented. bed weight obtained. pt placed on monitor. NSR on telemetry heart rate in 60s. left radial arterial line, leveled and zeroed with appropriate waveform. 99% on 2L nasal cannula. lung
sounds clear. 3 lap sites CDI with surgical adhesive. lopez draining clear yellow urine. pt oriented to room and unit. daughters brought to bedside.
[2023-07-10 19:05] LABS: INR 1.13; PT 14.3 Sec (11.4-14.6)
[2023-07-10 19:06] LABS: APTT 28.9 Sec (23.4-35.0)
[2023-07-10 19:14] LABS: ALT (SGPT) 12 U/L (0-35); AST (SGOT) 31 U/L (14-36); Albumin 3.9 g/dl (3.5-5.0); Alkaline Phosphatase 91 U/L (38-126); Blood Urea Nitrogen 25 mg/dl (7-17); Calcium 8.6 mg/dl (8.4-10.2); Carbon Dioxide 26 mmol/L (22-30); Chloride 102 mmol/L (98-107); Estimated Creatinine Clearance 57 ml/min; Glucose 92 mg/dl (70-99); Phosphorus 3.4 mg/dl (2.5-4.5); Potassium 3.6 mmol/L (3.5-5.1); Sodium 137 mmol/L (135-145); Total Bilirubin 0.7 mg/dl (0.2-1.3); Total Protein 5.9 g/dl (6.3-8.2); eGFR > 60.00
--- NOTE | 2023-07-10 20:00 | PTCARENOTE ---
Rec'd pt resting in bed, dtr at bedside, pt denies pain, oriented x 3, cooperative, PALA, SR w/ 1' av block, prol QT, left rad ammy w/ good wave form, flushes well, approx 10mm > than cuff, + pulses, no edema, skin warm/dry, RA, sat 97, lungs decr
in bases, hypo bowel sounds, no bm, no flatus, lap sites intact w/ surgical adhesive, farooq few ice chips, lopez draining yellow urine
[2023-07-11] VITALS (11 sets, daily range): BP systolic 105–141; BP diastolic 48–65; BMI 20.4
--- NOTE | 2023-07-11 00:18 | PTCARENOTE ---
sys reviewed, lungs w/ fine left base crackles, decr in bases,no pain, CHG bath done, linens changed
--- NOTE | 2023-07-11 02:24 | PTCARENOTE ---
sat dropped to 80's while sleeping, 2 liters nc applied
[2023-07-11 04:00] LABS: % Basophils 0.2 % (0-2); % Immature Granulocytes 0.5 % (0-0.5); % Lymphocytes 10.3 % (20.5-51.1); % Monocytes 6.6 % (1.7-9.3); % Neutrophils 82.4 % (42.2-75.2); Absolute Immature Granulocytes 0.1 10^3/uL (0-0.05); Absolute Lymphocytes 1.1 10^3/uL (1.2-3.4); Absolute Monocytes 0.7 10^3/uL (0.1-0.6); Absolute Neutrophils 8.7 10^3/uL (1.4-6.5); Hematocrit 27.1 % (37.0-47.0); Mean Corp Hgb Conc. 33.2 g/dL (33.0-37.0); Mean Corpuscular Hgb 30.9 pg (27.0-31.0); Mean Corpuscular Volume 93.1 fL (81.0-99.0); Mean Platelet Volume 10.4 fL (7.4-10.4); Nucleated Red Blood Cells % 0 %; Platelet Count 135 10^3/uL (130-400); Red Blood Cell Count 2.91 10^6/uL (4.20-5.40); Red Cell Dist. Width 12.3 % (11.5-14.5); White Blood Cell Count 10.6 10^3/uL (4.8-10.8)
--- NOTE | 2023-07-11 04:18 | PTCARENOTE ---
sys reviewed, lungs decr in bases
[2023-07-11 04:23] LABS: ALT (SGPT) < 10 U/L (0-35); AST (SGOT) 25 U/L (14-36); Albumin 3.2 g/dl (3.5-5.0); Alkaline Phosphatase 78 U/L (38-126); Blood Urea Nitrogen 24 mg/dl (7-17); Calcium 8.5 mg/dl (8.4-10.2); Carbon Dioxide 24 mmol/L (22-30); Chloride 105 mmol/L (98-107); Estimated Creatinine Clearance 57 ml/min; Glucose 76 mg/dl (70-99); Potassium 3.6 mmol/L (3.5-5.1); Sodium 138 mmol/L (135-145); Total Bilirubin 0.7 mg/dl (0.2-1.3); Total Protein 5.1 g/dl (6.3-8.2); eGFR > 60.00
[2023-07-11] MEDS: NSS 1000 IV ×2 (05:50→18:13)
--- NOTE | 2023-07-11 07:07 | W.PN.GS2 ---
Today's Communication / Plan
-
`
Assessment / Plan
-
Assessment: 88 y/o female POD#1 s/p RAL gastropexy/detorsion of GOO d/t large PEH
intraop findings confirmed persistently obstructed stomach, massively distended as well. able to be de-torsed and then pexied circumferentially at diaphragm as well as left sub coastal area along greater curvature of stomach
AFVSS
doing very well initially post op
Plan: clear liquid diet - going slow with diet -risk for gastroparesis/GERD
d/c ammy
IVF renewed
d/c lopez
OOBTC/ambulate/PT
scds and lovenox for VTEp
continue protonix IV BID for now
okay for transfer to med/surg from surgical perspective
appreciate cards/medicine assistance with perioperative care
Subjective Data
-
Date of Service: July 11, 2023
pt seen and examined
feeling well post op, very pleasant as usual
denies pain
denies nausea
Objective Data
-
Intake and Output
07/10/23 07/11/23 07/12/23
06:59 06:59 06:59
Intake Total 2039 / 0 1045 / 1045
Output Total 1400 / 1400 665 / 665
Balance 640 / 640 380 / 380
Intake:
Oral fluids 0 / 0
IV fluids (Total) 1860 / 1860 995 / 995
Nss 1,000 ml @ 80 mls/hr IV . 920 / 920
[id number] KIP Rx#:[id number]
norm 75 / 75
Amount instilled into GI Tube ( 180 / 180 30 / 30
Total)
Fowler Sump 180 / 180 30 / 30
Output:
Gastrointestinal tube output ( 1250 / 1250 200 / 200
Total)
Fowler Sump 1250 / 1250 200 / 200
Urine, Lopez 365 / 365
Urine, Voided 150 / 150 100 / 100
Other:
How many times incontinent 1
MODERATE amount urine
How many times incontinent 2
SATURATED amount urine
Vital Signs
Temp Pulse Resp BP Pulse Ox
98.4 F 57 18 125/48 100
07/11/23 04:00 07/11/23 06:00 07/11/23 06:00 07/11/23 06:00 07/11/23 06:00
Lab Results
07/11/23 03:28
07/11/23 03:28
Calcium 8.5 mg/dl (8.4-10.2) 07/11/23 03:28
Phosphorus 3.4 mg/dl (2.5-4.5) 07/10/23 18:47
Magnesium 2.0 mg/dl (1.6-2.3) 07/11/23 03:28
Total Bilirubin 0.7 mg/dl (0.2-1.3) 07/11/23 03:28
AST 25 U/L (14-36) 07/11/23 03:28
ALT < 10 U/L (0-35) 07/11/23 03:28
Alkaline Phosphatase 78 U/L (38-126) 07/11/23 03:28
Total Protein 5.1 g/dl (6.3-8.2) L 07/11/23 03:28
Albumin 3.2 g/dl (3.5-5.0) L 07/11/23 03:28
Physical Exam
-
NAD AAOx3
ABD: soft, ND, nontender at incisions
incisions with glue dressings
--- NOTE | 2023-07-11 07:12 | CON.INTV ---
Consultation
Consultation Request
Date/Time Consultation Requested: 07/10/23
Date/Time Consultation Performed: 07/11/23
Performing Provider: Hayes
Reason for Consultation: ICU
Medical History
-
History of Present Illness:
Patient is an 88-year-old female with previous history of asthma, depression, hypercholesterolemia, hypothyroidism presenting with abdominal pain, nausea, decreased p.o. intake with unintentional weight loss of 10 pounds over the past year.
Admitted 07/08/2023, had CT demonstrating acute gastric outlet obstruction with volvulus. She underwent robotic assisted laparoscopic gastropexy on 07/10/2023, postoperatively transferred to ICU for observation due to history of aortic stenosis.
Procedure was noted to be uncomplicated, she did well overnight in ICU.
Past Medical History
Past Medical History: Other (see list below)
Social History
Tobacco: Non-smoker
Alcohol: None
Drug: None
Family History
Family History: Reviewed & Not Pertinent
Allergies / Home Medications
Allergies
Allergy/AdvReac Type Severity Reaction Status Date / Time
No Known Allergies Allergy Verified 07/08/23 20:24
Home Medications
�Medication �Instructions �Recorded �Confirmed �Last Taken �Type
sertraline 50 mg tablet 50 mg PO DAILY Mental 01/06/19 07/09/23 02/07/23 History
Health/Anxiety
celecoxib 200 mg capsule (Celebrex) 200 mg PO DAILY Pain 02/09/23 07/09/23 Unknown History
levothyroxine 75 mcg tablet 75 mcg PO DAILY Thyroid 07/09/23 07/09/23 Unknown History
pantoprazole 40 mg granules 40 mg PO DAILY Gastrointestinal 07/09/23 07/09/23 Unknown History
delayed-release for susp in packet Issue
(Protonix)
rosuvastatin 5 mg tablet 5 mg PO DAILY High Cholesterol 07/09/23 07/09/23 Unknown History
Review of Systems
-
History Source: Patient
All other systems: Negative unless noted
Vitals / Labs / Diagnostic Testing
Vital Signs
Temp Pulse Resp BP Pulse Ox
98.4 F 57 18 125/48 100
07/11/23 04:00 07/11/23 06:00 07/11/23 06:00 07/11/23 06:00 07/11/23 06:00
Lab Data
07/11/23 03:28
07/11/23 03:28
Laboratory Results
07/10/23
18:47
PT 14.3
INR 1.13
APTT 28.9
Microbiology
07/08/23 23:44 Urine Urine Culture - Final
Diagnostic Testing:
Physical Exam
-
HEENT: Normocephalic, Anicteric and Moist Mucous Membranes
Cardiovascular: S1/S2 and Regular Rhythm
Respiratory: Clear and Non-Labored Respirations
GI: Soft, Non Distended and Tender (mildly)
Neurology: Awake, Alert, Oriented, AO x 3 and No Motor Deficits
Skin: Warm, Dry and Good Color
General: Comfortable and Other (NAD)
Assessment
-
Assessment
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
s/p Robotic Assisted Laparoscopic Gastropexy/EGD 07/10/23
Abdominal pain
Nausea
Unintentional weight loss, 10lbs in past year
Mild anemia
Severe
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
hypothyroidism
high cholesterol
asthma
depression
OAB (over active bladder)
hiatal hernia
colonic polyps
OA
GERD
Candidal esophagitis (02/2019)
double knee replacement
double hip replacement
partial hysterectomy- fibroid
Choley
Plan
No current signs of metabolic encephalopathy or MS changes/following commands
Denies pain at this time.
Pain/sedation: PRN
RASS goals: 0
Hemodynamically stable, not requiring pressors.
Cardiac history reviewed--, HLD
Prior ECHO reviewed indicating severe , cards to manage
Monitor on tele
Oxygen needs: RA
Prior history of lung disease: none
Supplemental O2 as indicated to maintain sats > 89%
CXR reviewed indicating no acute findings
Diet advacement per surgery
Administration Dean recommendations
Aspiration precautions, HOB > 30 degrees
Speech therapy eval can be considered if at elevated risk
GI prophylaxis if indicated for mechanical ventilation >48 hours, prior history of GERD, stress ulcer formation in the critically ill
Creat at baseline, no history of renal disease
Void trials
Follow urine output, critical I/Os
Replete electrolytes as needed
No signs/symptoms suspicious for infectious etiology at this time
Observe off antibiotics for now
Follow fever trend, WBC count
CBC stable, no signs of bleeding or coagulopathy.
DVT prophylaxis as assessed based on risk, including mechanical SCDs
Can transfuse if indicated for Hb <7, plt < 10
No prior h/o diabetes
Monitor accuchecks PRN/SS coverage if needed
H/o hypothyroidism, can continue on home synthroid dose
Can transfer to tele post op, we will sign off upon transfer
Diagnostic Data
Chest X-Ray: 07/10/23- Minimal stranding and/or chronic lung changes in the left lung base. Likely represents atelectasis and scarring. Superimposed pneumonic process cannot be completely excluded.
CT Scan: AP 07/08/23- findings compatible with gastric outlet obstruction which is likely on the basis of gastric volvulus. Distended fundus and proximal to mid body of the stomach are located inferior to the hemidiaphragm, with distended mid body
through atrium of the stomach located superior to the hemidiaphragm within the left lower hemithorax. See above description.
There is a small amount of pleural fluid in the left lower chest, probably transudated fluid from the distended stomach.
Dense calcification of the aortic valve. Please correlate with any signs or symptoms that would suggest aortic stenosis.
Significant streak artifact in the pelvis because of bilateral hip prostheses.
Echo: 07/10/23- Normal biventricular size and systolic function without regional wall motion abnormality. Severe aortic stenosis (mean 44 mmHg and YVETTE estimated at 0.9 cm2. Stage II diastolic dysfunction suggestive of abnormal relaxation and
increased filling pressures. Mild to moderate tricuspid regurgitation. Estimated PASP 40-45 mmHg and RA 3 mmHg. Compared to prior study of 08/08/2020 has progressed from mild to severe.
PFT's:
Reports and relevant images were personally reviewed.
-----
Critical care time 50 mins -- this includes review of history, physical exam, medications, hemodynamic/ventilator parameters, laboratory data, imaging and discussion with house staff, pharmacy, respiratory therapy, brownell operator, and nursing.
--- NOTE | 2023-07-11 07:45 | PTCARENOTE ---
Assumed care of patient. Pt rec'd sleeping but easily arousable. A&Ox3. Pleasant. [place]. Denies any pain. S1 S2 reg w/ + murmur....NSR/1st degree AVB/BBC/prolonged QT. Weak PP. No edema. Knee hi SCD's on. Rec'd on 2L N/C...sats 99%. Placed
on R/A...sats 96%. Lungs clear but diminished. Abdomen round...+BS. Harris draining yellow urine. Skin WNL except abdominal incisions from robotic surgery...incisions well approximated w/ glue and YVETTE. Left radial ammy...flushed and zeroed.
LFA INT w/ NSS infusing @ 100ml/hr. LAC INT capped. VS documented. Call benton within reach. Seen by . Orders rec'd. Will continue to monitor.
[2023-07-11] MEDS: PROTONIX IV 40 MG IV ×2 (07:51→20:17)
[2023-07-11] MEDS: NSS (PRESERVATIVE FREE) 10 ML IV ×2 (07:51→20:17)
--- NOTE | 2023-07-11 08:30 | PTCARENOTE ---
Left radial ammy d/c'd @ 0800. Drsg applied. Kimberly d/c'd @ 0815. Advanced to clear liquid diet. Resting comfortably in bed at present.
--- NOTE | 2023-07-11 09:05 | W.PN.CD ---
Today's Communication / Plan
-
Tolerated surgery very well. No evidence of cardiac complication
We will sign off
I educated her and her family present about signs/symptoms from that would lead us to consider evaluation for AVR (TAVR)
We will be happy to see her in the office in 1-3 months or sooner if needed
Please call with questions.
Impression / Plan
-
88-year-old female with history of hiatal hernia/heartburn, hypothyroidism, mild aortic stenosis (echo 07/2020, mean 25 mmHg/YVETTE est 1.3 cm2), and depression presented nausea and abdominal discomfort found to have gastric outlet obstruction secondary
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
- Tolerated surgery well
Severe asymptomatic valvular
Subjective:
Feels well. No CP or dyspnea
Physical Exam
Vital Signs/Labs
Vital Signs
Temp Pulse Resp BP Pulse Ox
98.5 F 57 18 125/48 100
07/11/23 07:15 07/11/23 06:00 07/11/23 06:00 07/11/23 06:00 07/11/23 06:00
07/10/23 07/11/23 07/12/23
06:59 06:59 06:59
Actual Weight 54.7 kg 54 kg
07/11/23 03:28
07/11/23 03:28
PT 14.3 Sec (11.4-14.6) 07/10/23 18:47
INR 1.13 07/10/23 18:47
APTT 28.9 Sec (23.4-35.0) 07/10/23 18:47
Magnesium 2.0 mg/dl (1.6-2.3) 07/11/23 03:28
Free T4 1.44 ng/dl (0.78-2.19) 07/09/23 06:18
LAB Results
07/08/23
21:47
Troponin I < 0.012
Physical Exam
Constitutional: No acute distress
EENT: Anicteric
Cardiovascular: Rhythm & rate is regular and Systolic murmur present
Respiratory: Respiratory effort normal and Lungs clear to auscul.
GI: Soft and Distention absent
Neuro/Psych: AO x 3 and Motor deficits absent
Data Reviewed
-
Date of Service: July 11, 2023
--- NOTE | 2023-07-11 09:15 | W.PN.HOSP.TC ---
Today's Communication/Plan
-
see bold
Assessment / Plan
Assessment / Plan
Patient is an 88y F with PMH significant for hypothyroidism and depression who presented to ED complaining of severe nausea.
A/P:
# Gastric Outlet Obstruction
# Hiatal Hernia
# Possible Gastric Volvulus
Continue NG decompression, cont n.p.o. with IV fluid hydration, PPI IV BID
GS on board, considering options of surgical correction of her hiatal hernia versus gastropexy to reduce the risk of torsion/organoaxial volvulus.
Given patient's advanced age, s/p laparoscopic gastropexy 07/09
Currently on clear liquid diet, advance slowly as per surgery
PT/OT
Daughter at bedside would like to avoid IV Dilaudid, OK with low dose morphine for pain control
# Leukocytosis, suspect reactive due to acute process.
Patient remains afebrile, cont to monitor temp
Observe off of abx for now.
# Mild in 2020
Appreciate cardiology input, echo reviewed
Outpatient follow-up as needed
# Hypothyroidism
Recent decrease in T4 dose from 88mcg to 75mcg per patient.
Resume levothyroxine
TSH 0.06, FT4 1.44
# Anxiety / Depression
Stable.
Holding Zoloft acutely while NPO.
DVT Prophylaxis: SCDs
Code Status: DNR
Updated daughter at bedside 07/10
Total time spent to see the patient on the floor, examine the patient, review data and lab results, discuss treatment plan with patient, nursing staff around 35 minutes.
Physical Exam
General: No acute distress
HEENT: Normocephalic, Atraumatic, EOMI, MMM
Respiratory: Clear to Auscultation bilaterally
Cardiac: Normal S1/S2, Regular Rate and Rhythm
GI: Soft, cornell-incisional tenderness noted, incisions clean/dry/intact
Extremities: No Clubbing, Cyanosis, or Edema
Neuro: Nonfocal/Grossly Intact
Psych: Calm, Cooperative
Derm: No Visible lesions
Anticipated Discharge: Within 24 hours
Subjective/Interval History
-
Date of Service: July 11, 2023
Patient denies abdominal pain, no nausea, no vomiting. She had a bowel movement. No fever. No chest pain, no shortness of breath.
Objective Data
-
Labs:
Laboratory Results
07/11/23
03:28
WBC 10.6
Hgb 9.0 L
Hct 27.1 L
Plt Count 135
Sodium 138
Potassium 3.6
Chloride 105
Carbon Dioxide 24
BUN 24 H
Creatinine 0.6
Glucose 76
Calcium 8.5
Total Bilirubin 0.7
AST 25
ALT < 10
Alkaline Phosphatase 78
Vital Signs:
Vital Signs
Temp Pulse Resp BP Pulse Ox
98.5 F 57 18 125/48 100
07/11/23 07:15 07/11/23 06:00 07/11/23 06:00 07/11/23 06:00 07/11/23 06:00
I&O
07/10/23 07/11/23 07/12/23
06:59 06:59 06:59
Intake Total 0 / 2039 1045 / 1045
Output Total 1400 / 1400 665 / 665
Balance 640 / 640 380 / 380
--- NOTE | 2023-07-11 10:00 | PTCARENOTE ---
Pt assisted to bathroom. Pt able to void and have moderate brown BM. Resting comfortably in chair.
--- NOTE | 2023-07-11 13:51 | CM ---
CM following re: discharge planning.
Discussed in rounds, reviewed pt's chart, met with pPt is t. Pt's daughter and daughter in law at bedside.
Pt is POD#1 s/p RAL gastropexy/detorsion of GOO d/t large [facility]. per general surgery pt is doing well and will be downgraded from ICU level of care.
Pt stated she is doing well, lives at [place] [id number] [facility], has 3 supportive children. Pt is aware that PT recommends home PT vs SNF and pt is requested home PT. pt's family supports pt's plan/choice. Pt stated she never had VN services
in the past. A list of VN vendors provided. pt preferred [facility]. A referral to [facility] made.
D/C plan: home with [facility] and family support. family to transport at discharge.
CM will follow with discharge plan updates as hospitalization progresses
--- NOTE | 2023-07-11 14:35 | PTCARENOTE ---
Report called to 2 south....pt to transfer to Room 2111.
--- NOTE | 2023-07-11 15:30 | PTCARENOTE ---
Pt received from the ICU via w/c. Transport was w/o incident. Pt is AAOx3, HRR, Murmur noted, Lungs are clear and resp. easy. Pt is NSR with a first degree av block on [employer]. Pt abd with 4 Lap sites and one puncture site all approximated
w/ surgi glue. Pt denies pain or nausea at this time. Pt and Pt's daughters instructed on plan of care. Both Pt and her daughters verbalized understanding of instructions. Call benton is within reach.
[2023-07-11] MEDS: LOVENOX 40 MG SC (18:11)
[2023-07-12 03:30] VITALS: BP 123/70; BP 124/69; BP 126/68; PULSE 78; PULSE 84; PULSE 90
[2023-07-12] MEDS: NSS 1000 IV (04:52)
[2023-07-12] MEDS: SYNTHROID 75 MCG PO (04:55)
[2023-07-12 06:00] VITALS: BMI 21.5
[2023-07-12 06:24] LABS: Hematocrit 27.9 % (37.0-47.0); Hemoglobin 9.1 g/dL (12.0-16.0); Mean Corp Hgb Conc. 32.6 g/dL (33.0-37.0); Mean Corpuscular Hgb 31.1 pg (27.0-31.0); Mean Corpuscular Volume 95.2 fL (81.0-99.0); Mean Platelet Volume 10.8 fL (7.4-10.4); Platelet Count 131 10^3/uL (130-400); Red Blood Cell Count 2.93 10^6/uL (4.20-5.40); Red Cell Dist. Width 12.2 % (11.5-14.5); White Blood Cell Count 9.3 10^3/uL (4.8-10.8)
[2023-07-12 06:47] LABS: Blood Urea Nitrogen 13 mg/dl (7-17); Calcium 8.2 mg/dl (8.4-10.2); Carbon Dioxide 29 mmol/L (22-30); Chloride 106 mmol/L (98-107); Estimated Creatinine Clearance 57 ml/min; Glucose 98 mg/dl (70-99); Magnesium 1.7 mg/dl (1.6-2.3); Potassium 3.1 mmol/L (3.5-5.1); Sodium 137 mmol/L (135-145); eGFR > 60.00
--- NOTE | 2023-07-12 07:20 | W.PN.HOSP.TC ---
Addendum entered and electronically signed by Hernandez Matute MD 07/12/23 15:24:
#Acute blood loss anemia
Due to surgery, mild, monitor
#Anxiety/depression
Resume Zoloft
Original Note:
Today's Communication/Plan
-
Discharge tomorrow if cleared by surgery
Assessment / Plan
Assessment / Plan
Patient is an 88y F with PMH significant for hypothyroidism and depression who presented to ED complaining of severe nausea.
A/P:
# Gastric Outlet Obstruction
# Hiatal Hernia
# Possible Gastric Volvulus
Continue NG decompression, cont n.p.o. with IV fluid hydration, PPI IV BID
GS on board, considering options of surgical correction of her hiatal hernia versus gastropexy to reduce the risk of torsion/organoaxial volvulus.
Given patient's advanced age, s/p laparoscopic gastropexy 07/09
Tolerating her clear liquid diet, general surgery advanced to full liquids, then solids for dinner
Plan for discharge tomorrow if tolerating solids, PT rec HH
Daughter at bedside would like to avoid IV Dilaudid, OK with low dose morphine for pain control
# Leukocytosis, suspect reactive due to acute process.
Patient remains afebrile, cont to monitor temp
Observe off of abx for now.
# Mild in 2020
Appreciate cardiology input, echo reviewed
Outpatient follow-up as needed
# Hypothyroidism
Recent decrease in T4 dose from 88mcg to 75mcg per patient.
Resumed levothyroxine
TSH 0.06, FT4 1.44
# Anxiety / Depression
Stable.
Holding Zoloft acutely while NPO.
DVT Prophylaxis: SCDs
Code Status: DNR
Updated daughter at bedside 07/10
Total time spent to see the patient on the floor, examine the patient, review data and lab results, discuss treatment plan with patient, nursing staff around 35 minutes.
Physical Exam
General: No acute distress
HEENT: Normocephalic, Atraumatic, EOMI, MMM
Respiratory: Clear to Auscultation bilaterally
Cardiac: Normal S1/S2, Regular Rate and Rhythm
GI: Soft, cornell-incisional tenderness noted, incisions clean/dry/intact
Extremities: No Clubbing, Cyanosis, or Edema
Neuro: Nonfocal/Grossly Intact
Psych: Calm, Cooperative
Derm: No Visible lesions
Anticipated Discharge: Within 24 hours
Subjective/Interval History
-
Date of Service: July 12, 2023
Patient denies abdominal pain. She is tolerating her diet. No nausea, no vomiting. No chest pain, no shortness of breath. No fever.
Objective Data
-
Labs:
Laboratory Results
07/12/23
05:59
WBC 9.3
Hgb 9.1 L
Hct 27.9 L
Plt Count 131
Sodium 137
Potassium 3.1 L
Chloride 106
Carbon Dioxide 29
BUN 13
Creatinine 0.4 L
Glucose 98
Calcium 8.2 L
Vital Signs:
Vital Signs
Temp Pulse Resp BP Pulse Ox
98.2 F 78 16 123/70 95
07/12/23 03:30 07/12/23 03:30 07/12/23 03:30 07/12/23 03:30 07/12/23 03:30
I&O
07/11/23 07/12/23 07/13/23
06:59 06:59 06:59
Intake Total 1045 / 1125 2200 / 2200
Output Total 665 / 665 100 / 100
Balance 380 / 460 2099 / 2099
--- NOTE | 2023-07-12 07:24 | W.PN.GS2 ---
Today's Communication / Plan
-
`
Assessment / Plan
-
Assessment: 88 y/o female POD#2 s/p RAL gastropexy/detorsion of GOO d/t large PEH
intraop findings confirmed persistently obstructed stomach, massively distended as well.
able to be de-torsed and then pexied circumferentially at diaphragm as well as left sub coastal area along greater curvature of stomach
AFVSS
doing well with post op recovery and return of gastric/GI function
Plan: full liquid diet up to low residue for dinner this evening
d/c IVFs
changed to PO protonix daily
OOBTC/ambulate/PT
okay to shower
scds and lovenox for VTEp
if tolerates dietary advancement today would anticipate pt to be stable for d/c from surgical perspective tomorrow
Subjective Data
-
Date of Service: July 12, 2023
pt seen and examined
reports very minimal post op pain
farooq clears well, no nausea, no distention
+fl and BMs yesterday
Objective Data
-
Intake and Output
07/11/23 07/12/23 07/13/23
06:59 06:59 06:59
Intake Total 1045 / 1125 2200 / 2200
Output Total 665 / 665 100 / 100
Balance 380 / 460 2100 / 2100
Intake:
Oral fluids 20 / 20 600 / 600
IV fluids (Total) 995 / 1075 1600 / 1600
Nss 1,000 ml @ 80 mls/hr IV . 920 / 1000 640 / 640
[id number] KIP Rx#:[id number]
norm 75 / 75
Amount instilled into GI Tube ( 30 / 30
Total)
Smyth Sump 30 / 30
Output:
Gastrointestinal tube output ( 200 / 200
Total)
Smyth Sump 200 / 200
Urine, Harris 365 / 365 100 / 100
Urine, Voided 100 / 100
Other:
Number of approximated MODERATE 1
amounts of urine
Number of approximated LARGE 1
amounts of urine
Vital Signs
Temp Pulse Resp BP Pulse Ox
98.2 F 78 16 123/70 95
07/12/23 03:30 07/12/23 03:30 07/12/23 03:30 07/12/23 03:30 07/12/23 03:30
Lab Results
07/12/23 05:59
07/12/23 05:59
Calcium 8.2 mg/dl (8.4-10.2) L 07/12/23 05:59
Phosphorus 3.4 mg/dl (2.5-4.5) 07/10/23 18:47
Magnesium 1.7 mg/dl (1.6-2.3) 07/12/23 05:59
Total Bilirubin 0.7 mg/dl (0.2-1.3) 07/11/23 03:28
AST 25 U/L (14-36) 07/11/23 03:28
ALT < 10 U/L (0-35) 07/11/23 03:28
Alkaline Phosphatase 78 U/L (38-126) 07/11/23 03:28
Total Protein 5.1 g/dl (6.3-8.2) L 07/11/23 03:28
Albumin 3.2 g/dl (3.5-5.0) L 07/11/23 03:28
Physical Exam
-
NAD AAOx3
ABD: soft, ND, NTTP
incisions with glue dressings
[2023-07-12 07:30] VITALS: BP 130/65
[2023-07-12] MEDS: PROTONIX 40 MG PO (08:30)
[2023-07-12] MEDS: KCL 40 MEQ PO (08:30)
[2023-07-12 11:05] VITALS: BP 143/74
--- NOTE | 2023-07-12 12:53 | CM ---
Patient is for possible discharge to home tomorrow with [facility].
Plan; Home alone with [facility].
[2023-07-12 14:15] VITALS: BP 119/61; BP 125/58; BP 126/57; PULSE 72; PULSE 73; PULSE 78
--- NOTE | 2023-07-12 16:23 | VNURNOTE ---
Home Health Liaison met with patient and daughter at 1515 to discuss [facility] nurse/therapy, visits, schedule and homebound status. Patient is alittle reluctant but agreeable and understands that visits at home will be 2-3 x per week to assess and teach
medical management.
[facility] brochure provided with contact information. Patient is aware that [facility] will contact them for start of care in 1-2 days after discharge from .
[facility] referral completed in [facility].
[2023-07-12] MEDS: ZOLOFT 50 MG PO (16:46)
[2023-07-12] MEDS: CRESTOR 5 MG PO (16:46)
[2023-07-12] MEDS: LOVENOX 40 MG SC (17:18)
[2023-07-12 19:10] VITALS: BP 122/63
[2023-07-12 23:06] VITALS: BP 144/76
[2023-07-13 03:30] VITALS: BP 119/65; BP 120/66; BP 125/72; PULSE 81; PULSE 90; PULSE 99
[2023-07-13] MEDS: SYNTHROID 75 MCG PO (04:37)
[2023-07-13 05:30] LABS: Hematocrit 28.9 % (37.0-47.0); Hemoglobin 9.4 g/dL (12.0-16.0); Mean Corp Hgb Conc. 32.5 g/dL (33.0-37.0); Mean Corpuscular Volume 95.4 fL (81.0-99.0); Mean Platelet Volume 10.9 fL (7.4-10.4); Platelet Count 138 10^3/uL (130-400); Red Blood Cell Count 3.03 10^6/uL (4.20-5.40); Red Cell Dist. Width 12.2 % (11.5-14.5)
[2023-07-13 05:56] LABS: Blood Urea Nitrogen 11 mg/dl (7-17); Calcium 8.3 mg/dl (8.4-10.2); Carbon Dioxide 27 mmol/L (22-30); Chloride 107 mmol/L (98-107); Estimated Creatinine Clearance 57 ml/min; Glucose 103 mg/dl (70-99); Potassium 3.7 mmol/L (3.5-5.1); Sodium 138 mmol/L (135-145); eGFR > 60.00
[2023-07-13 06:00] VITALS: BMI 21.5
[2023-07-13 07:35] VITALS: BP 136/76
[2023-07-13 08:30] VITALS: BP 136/76
--- NOTE | 2023-07-13 08:30 | W.PN.GS2 ---
Today's Communication / Plan
-
`
Assessment / Plan
-
Assessment: 88 y/o female POD#3 s/p RAL gastropexy/detorsion of GOO d/t large PEH
intraop findings confirmed persistently obstructed stomach, massively distended as well.
able to be de-torsed and then pexied circumferentially at diaphragm as well as left sub coastal area along greater curvature of stomach
AFVSS
doing well with post op recovery and return of gastric/GI function
Plan: low residue diet
PO protonix daily
OOBTC/ambulate/PT
okay to shower
scds and lovenox for VTEp
Okay from surgical standpoint for discharge. Follow-up with myself in approximately 2 weeks for postop checkup
Subjective Data
-
Date of Service: July 13, 2023
Patient seen and examined
Reports doing well with postoperative recovery, tolerating liquid diet.
Occasional belching but no heartburn, no indigestion, no dysphagia
Denies nausea
Passing flatus and having bowel movements
Objective Data
-
Intake and Output
07/12/23 07/13/23 07/14/23
06:59 06:59 06:59
Intake Total 2200 / 2200 960 / 960
Output Total 100 / 100
Balance 2100 / 2100 960 / 960
Intake:
Oral fluids 600 / 600 960 / 960
IV fluids (Total) 1600 / 1600
Nss 1,000 ml @ 80 mls/hr IV . 640 / 640
[id number] KIP Rx#:[id number]
Output:
Urine, Harris 100 / 100
Other:
Number of approximated MODERATE 1 2
amounts of urine
Number of approximated LARGE 1 2
amounts of urine
How many times incontinent 1
SMALL amount urine
How many times incontinent 2
SATURATED amount urine
Vital Signs
Temp Pulse Resp BP Pulse Ox
98.3 F 81 16 120/66 96
07/13/23 03:30 07/13/23 03:30 07/13/23 03:30 07/13/23 03:30 07/13/23 03:30
Lab Results
07/13/23 04:29
07/13/23 04:29
Calcium 8.3 mg/dl (8.4-10.2) L 07/13/23 04:29
Phosphorus 3.4 mg/dl (2.5-4.5) 07/10/23 18:47
Magnesium 1.7 mg/dl (1.6-2.3) 07/12/23 05:59
Total Bilirubin 0.7 mg/dl (0.2-1.3) 07/11/23 03:28
AST 25 U/L (14-36) 07/11/23 03:28
ALT < 10 U/L (0-35) 07/11/23 03:28
Alkaline Phosphatase 78 U/L (38-126) 07/11/23 03:28
Total Protein 5.1 g/dl (6.3-8.2) L 07/11/23 03:28
Albumin 3.2 g/dl (3.5-5.0) L 07/11/23 03:28
Physical Exam
-
NAD AAOx3
ABD: Soft, nondistended, minimal incisional tenderness
Incisions with glue dressings
--- NOTE | 2023-07-13 09:14 | W.PN.HOSP.TC ---
Today's Communication/Plan
-
Cleared by general surgery for discharge today
Assessment / Plan
Assessment / Plan
Patient is an 88y F with PMH significant for hypothyroidism and depression who presented to ED complaining of severe nausea.
A/P:
# Gastric Outlet Obstruction
# Hiatal Hernia
# Possible Gastric Volvulus
Continue NG decompression, cont n.p.o. with IV fluid hydration, PPI IV BID
GS on board, considering options of surgical correction of her hiatal hernia versus gastropexy to reduce the risk of torsion/organoaxial volvulus.
S/p laparoscopic gastropexy 07/09
Tolerating solids
Medically stable and cleared by general surgery for discharge today, follow-up with general surgery in the office in 2 weeks
PT rec HH
Daughter at bedside would like to avoid IV Dilaudid, OK with low dose morphine for pain control
# Leukocytosis, suspect reactive due to acute process.
Resolved without any antibiotics
# Mild in 2020
Appreciate cardiology input, echo reviewed
Outpatient follow-up as needed
# Hypothyroidism
Recent decrease in T4 dose from 88mcg to 75mcg per patient.
Resumed levothyroxine
TSH 0.06, FT4 1.44
#Acute blood loss anemia
Due to surgery, mild, monitor
# Anxiety / Depression
Resumed zoloft
DVT Prophylaxis: SCDs
Code Status: DNR
Updated daughter at bedside 07/10
Physical Exam
General: No acute distress
HEENT: Normocephalic, Atraumatic, EOMI, MMM
Respiratory: Clear to Auscultation bilaterally
Cardiac: Normal S1/S2, Regular Rate and Rhythm
GI: Soft, cornell-incisional tenderness noted, incisions clean/dry/intact
Extremities: No Clubbing, Cyanosis, or Edema
Neuro: Nonfocal/Grossly Intact
Psych: Calm, Cooperative
Derm: No Visible lesions
Anticipated Discharge: Today
Subjective/Interval History
-
Date of Service: July 12, 2023
Patient denies abdominal pain. She feels well. No nausea, no vomiting. No chest pain, no shortness of breath.
Objective Data
-
Labs:
Laboratory Results
07/12/23
05:59
WBC 9.3
Hgb 9.1 L
Hct 27.9 L
Plt Count 131
Sodium 137
Potassium 3.1 L
Chloride 106
Carbon Dioxide 29
BUN 13
Creatinine 0.4 L
Glucose 98
Calcium 8.2 L
Vital Signs:
Vital Signs
Temp Pulse Resp BP Pulse Ox
98.0 F 72 16 119/61 98
07/12/23 14:15 07/12/23 14:15 07/12/23 14:15 07/12/23 14:15 07/12/23 14:15
I&O
07/11/23 07/12/23 07/13/23
06:59 06:59 06:59
Intake Total 1045 / 1125 2200 / 2200
Output Total 665 / 665 100 / 100
Balance 380 / 460 2099 / 2099
[2023-07-13] MEDS: PROTONIX 40 MG PO (09:16)
[2023-07-13] MEDS: CRESTOR 5 MG PO (09:16)
[2023-07-13] MEDS: ZOLOFT 50 MG PO (09:16)
--- NOTE | 2023-07-13 11:22 | CM ---
CM following re: discharge planning.
Reviewed pt's chart, met with pt.
Pt stated she was told by MD that she will be discharged home today and pt stated her daughter will transport home. IMM reviewed, placed on chart, pt has a copy.
Pt is aware that [facility] will provide after care VN services.
Please fax discharge instructions to VN at [phone]
D/C plan: home with [facility] and family support. Daughter to transport at discharge.
--- NOTE | 2023-07-13 14:13 | W.DCSUMMARY ---
Discharge Summary
Discharge Data
Date of Admission: 07/09/23
Date of Discharge: 07/13/23
-
Pending Results: No
Hospital Course
Discharge diagnosis:
Gastric outlet obstruction
Hiatal hernia/organoaxial volvulus
Severe aortic stenosis
Reactive leukocytosis
Hypothyroidism
Acute blood loss anemia
Anxiety/depression
Hyperlipidemia
Consults: General surgery, cardiology
CT Abd/pelvis:
As described, findings compatible with gastric outlet obstruction which is likely on the basis of gastric volvulus. Distended fundus and proximal to mid body of the stomach are located inferior to the hemidiaphragm, with distended mid body through
atrium of the stomach located superior to the hemidiaphragm within the left lower hemithorax.
Echo:
Normal biventricular size and systolic function without regional wall motion
abnormality.
Severe aortic stenosis (mean 44 mmHg and YVETTE estimated at 0.9 cm2.
Stage II diastolic dysfunction suggestive of abnormal relaxation and increased
filling pressures.
Mild to moderate tricuspid regurgitation.
Estimated PASP 40-45 mmHg and RA 3 mmHg.
Compared to prior study of 08/08/2020 has progressed from mild to severe.
Procedures:
07/10/2023 - Robotic assisted laparoscopic anterior gastropexy with intraoperative EGD.
Hospital course:
88-year-old female with a past medical history of aortic stenosis, hiatal hernia, gastroesophageal reflux disease, hypothyroidism, and depression presented with nausea, abdominal pain, and was found to have a gastric outlet obstruction.
Patient was seen in conjunction with general surgery, who recommended surgical intervention. She was found to have severe aortic stenosis on echocardiogram. She was seen in conjunction with cardiology. Her cardiac risk was high, the anesthesia
team was alerted for more intensive monitoring. She underwent robotic assisted laparoscopic anterior gastropexy with intraoperative EGD on 07/10/2023. She was monitored in the ICU. She did well postoperatively.
Patient's pain was well-controlled, she tolerated her diet, she had bowel movements. She is medically stable and cleared by general surgery for discharge. She needs to follow-up with general surgery in the office 2 weeks, as well as her primary
care doctor in 1 week. She can follow-up with cardiology as needed for aortic stenosis.
Disposition: Home with home care
Discharge planning: Required 36-minute
Discharge Plan
-
Patient Disposition: Home with Home Care
Discharge Diagnosis/Procedures: Gastric outlet obstruction secondary to hiatal hernia with volvulus; robotic assisted laparoscopic gastropexy/EGD
Condition: Good
Diet: As tolerated and Low Fiber
Additional Diets: Smaller meals, softer easier to swallow foods. Okay to utilize protein supplements/shakes
Activity: No strenuous activity
Additional Activity: Routine daily activities are all okay as tolerated. Walking, standing, stairs are all safe. No lifting over 20 pounds, no strenuous exercise.
Driving Restrictions: No driving for 1 week
Wound Care: Glue at surgical sites typically peels off in 2 to 3 weeks. No additional incisional wound care needed.
Activity Restrictions/Additional Instructions:
Call if fever greater than 101 �F, worsening abdominal pains, nausea vomiting, trouble swallowing, any concerns or questions
Referrals:
Dee Long DO [Family Provider] - in one week
Barney Pelletier MD [Active] - in two weeks (Please call to schedule routine 2-week postoperative surgical follow-up appointment with Dr. Pelletier)
Prescriptions:
New
acetaminophen [Acetaminophen Extra Strength] 500 mg tablet
1,000 mg PO QID PRN (Reason: fever or pain) Qty: 120 0RF
Continued
sertraline 50 MG tablet
50 mg PO DAILY
levothyroxine 75 mcg Tablet
75 mcg PO DAILY
rosuvastatin 5 mg Tablet
5 mg PO DAILY
pantoprazole [Protonix] [address] For Susp In Packet
40 mg PO DAILY
Discontinued
celecoxib [Celebrex] 200 mg Capsule
200 mg PO DAILY
Discharge Orders:
Discharge Patient (As Directed); Ordered 07/13/23
Ordered By: Hernandez Matute
Discharge Date and Time
Discharge Date/Time: 07/13/23 14:25
Print Language: NEPALI
== END 2023-07-13 14:25 | disposition home health service (06) | DRG 327 ==
LOC: 2 SOUTH 01:46
PROVIDERS: Internal Medicine; ADMITTING PHYSICIAN Hospitalist; ATTENDING PHYSICIAN Family Medicine; CONSULT PHYSICIAN Internal Medicine Cardiovascular Disease; CONSULT PHYSICIAN Surgery; EMERGENCY PHYSICIAN Emergency Medicine; FAMILY PHYSICIAN Family Medicine; OTHER PHYSICIAN Internal Medicine
PROC: 0DJ08ZZ Inspection of Upper Intestinal Tract, Via Natural or Artificial Opening Endoscopic (ICD-10-PCS; 2023-07-10)
PROC: 0DS64ZZ Reposition Stomach, Percutaneous Endoscopic Approach (ICD-10-PCS; 2023-07-10)
DX: K44.0 Diaphragmatic hernia with obstruction, without gangrene (principal); D62 Acute posthemorrhagic anemia; K31.1 Adult hypertrophic pyloric stenosis; E03.9 Hypothyroidism, unspecified; K21.9 Gastro-esophageal reflux disease without esophagitis; F32.A Depression, unspecified; F41.9 Anxiety disorder, unspecified; J45.909 Unspecified asthma, uncomplicated; Z66 Do not resuscitate; E78.00 Pure hypercholesterolemia, unspecified; I35.0 Nonrheumatic aortic (valve) stenosis; K31.89 Other diseases of stomach and duodenum; N32.81 Overactive bladder; R63.4 Abnormal weight loss; Z68.21 Body mass index [BMI] 21.0-21.9, adult; Z79.899 Other long term (current) drug therapy
CPT/HCPCS: 71045; 74018; 74022; 74177; 80048; 80053; 81003; 81015; 83605; 83690; 83735; 84100; 84439; 84443; 84484; 85025; 85027; 85610; 85730; 86850; 86900; 86901; 87086; 87811; 93005; 93306; 96374; 97163; 97164; 97166; 97530; 99285; Q9967

== ENCOUNTER 2023-08-02 10:06 | Emergency (ER) | payer OTHER, SELFPAY ==
[2023-08-02 10:12] VITALS: BP 107/66
--- NOTE | 2023-08-02 10:30 | ED.MUSCINJ ---
HPI-Injury
General
Chief Complaint: Extremity Pain (non-traumatic)
Source: patient
Exam Limitations: none
Time Seen by Provider: 08/02/23 10:28
Nursing documentation reviewed up to this point in time: agreed with
Travel History
Have you had any contact with someone who has COVID-19?: No
Do you have any symptoms of coronavirus? Fever > 100 degrees, chills, cough, shortness of breath, sore throat, loss of taste or smell, muscle aches, or headache?: No
History of Present Illness-Injury
Initial Injury comments:
88-year-old female with history of hiatal hernia, Gastric outlet obstruction robotic assisted laparoscopic anterior gastropexy with intraoperative EGD on 07/10/2023. hypothyroid, HLD, GERD, , Severe Aortic stenosis, bilateral knee replacements
bilateral hip replacements, cholecystectomy, depression presents from home stating yesterday while walking around her house developed pain in left hip radiating down outer thigh to knee and sometimes to lower leg, foot not affected.
No hx injury but she did do a lot more walking than usual around [facility] 4 days ago, no leaning onto anything as she usually does.
Denies fever/chills. Denies back pain, denies weakness in legs, no loss of bowel or bladder control
Past History
Past History
ED Past Medical History: Asthma, Hypercholesterolemia and Other (arthritis)
ED Past Surgical History: Appendectomy, Cholecystectomy and Orthopedic (Bilateral knee replacements, bilateral hip replacements)
Social History
Tobacco: Non-smoker
Alcohol: None
Drug: None
Personal: Single
Living: with family (Lives with daughter)
Review of Systems
Review of Systems
Allergies reviewed?: Yes
All Other Systems: ROS reviewed and negative except as documented in HPI and ROS
Constitutional: Denies fever
Respiratory: Denies trouble breathing
Cardiac: Denies chest pain
ABD/GI: Denies abdominal pain
: Denies dysuria, incontinence or difficulty voiding
Musculoskeletal: Reports other (pain left hip radiating to thigh); Denies back pain
Skin: Reports no symptoms
Neurological: Reports no symptoms
Phy Exam
Physical Exam
Physical Exam:
GENERAL: No acute distress. A&Ox3.
CONSTITUTIONAL: Afebrile.
EYES: PERRL, conjunctivae normal
ENMT: moist mucus membranes, Pharynx nl
RESPIRATORY: Regular respirations, nonlabored, lungs clear.
CARDIOVASCULAR: Regular rate and rhythm, no murmurs, no rubs.
GI: Soft, nontender, normal BS
MUSCULOSKELETAL: No spinal bony tenderness, no ST tenderness of the lower back or buttock. Pelvic rock neg. No tenderness to palpation of hip, femur, knee or lower leg. Intermittent grabbing pain with some ROM movements but not reproducible all the
time. Full ROM without pain with most ROM. One time pain outer thigh elicited with her SLR otherwise, active and passive SLR without pain. One time pain elicited with knee flexion and adduction. But could not reproduce with same movement again.
Moves with ease. Well perfused.
SKIN: Warm, dry, pink
PSYCH: Normal mood and affect. Well kept, interactive and appropriate
NEUROLOGIC: Awake, alert and oriented. No focal neurological deficits
Injury Course
Orders/Labs/Results
Orders:
Orders
08/02/23 11:13
Hip, Left 2-3 Views [CR Hip - LT w/wo Pel 2-3 Vw*] Urgent
Comment:
Reason For Exam: Pain after walking a lot
Include a pelvis x-ray?: No
08/02/23 11:17
Lumbar Spine, 2 or 3 View [CR Lumbar Spine 2 Or 3 Views] Urgent
Comment:
Reason For Exam: pain down left hip, thigh
08/02/23 12:33
Acetaminophen [Tylenol] 1,000 mg PO NOW STA
Dexamethasone [Decadron] 10 mg PO NOW STA
MDM/Problems Addressed
Differential Diagnosis Includes:
hip fracture, sciatica, muscle strain
MDM/Problems Addressed:
88-year-old female with history of hiatal hernia, Gastric outlet obstruction robotic assisted laparoscopic anterior gastropexy with intraoperative EGD on 07/10/2023. hypothyroid, HLD, GERD, , Severe Aortic stenosis, bilateral knee replacements
bilateral hip replacements, cholecystectomy, depression presents from home stating yesterday while walking around her house developed pain in left hip radiating down outer thigh to knee and sometimes to lower leg, foot not affected.
No hx injury but she did do a lot more walking than usual around [employer] 4 days ago, no leaning onto anything as she usually does.
Denies fever/chills. Denies back pain, denies weakness in legs, no loss of bowel or bladder control
Really her pain is along the iliotibial band which I think has been aggravated and strained with her doing so much walking around [employer] 4 days ago.
Left hip xray read by this examiner: neg, hardware intact
LS spine xray: Radiology report read: IMPRESSION:
There is significant degenerative disk and joint disease in the lumbar spine, with scoliosis and transitional S1 segment.
No definite acute fracture.
If symptoms persist consider MRI to evaluate for disk herniation or nerve root impingement.
Pt OOB and ambulating well.
Copy of reports given to pt and daughter, all questions answered
*Critical Care Note
Total Time (30-74mins, 75-104mins- exclusive of procedures): Not Applicable
ED Attending Note
-
Portions of this chart may have been created with voice recognition software.� Occasional wrong word or��sound alike� substitutions may have occurred due to the inherent limitations of voice recognition software.
Discharge Plan
Departure
Patient Disposition: Home (Routine Discharge)
Date of Disposition: 08/02/23
Time of Disposition: 13:11
Patient with high blood pressure during this ER visit?: No
Condition: Fair
Discharge Problem:
Left sided sciatica, Degenerative joint disease (DJD) of lumbar spine
Instructions: Osteoarthritis, Sciatica ED
Prescriptions:
New
prednisone 20 mg tablet
40 mg PO DAILY Qty: 8 0RF
No Action
sertraline 50 MG tablet
50 mg PO DAILY
levothyroxine 75 mcg Tablet
75 mcg PO DAILY
rosuvastatin 5 mg Tablet
5 mg PO DAILY
pantoprazole [Protonix] [address] For Susp In Packet
40 mg PO DAILY
acetaminophen [Acetaminophen Extra Strength] 500 mg tablet
1,000 mg PO QID PRN (Reason: fever or pain) Qty: 120 0RF
Referrals:
Dee Long, DO [Family Provider] - As needed
Activity Restrictions/Additional Instructions:
As we discussed, your low back x-ray shows you have significant arthritis, this may be causing the pain radiating down your left leg.
You were given Decadron 10 mg, a steroid here today to help with the inflammation. I sent a prescription to your pharmacy for prednisone 40 mg a day for the next 4 days, started tomorrow
Tylenol 1000 mg up to 3 times a day as needed for pain.
See your doctor if you are not a lot better within the neck 7 to 10 days as you may need an MRI.
Interventions
Interventions:
*Risk Screen - Suicide Last Done: 08/02/23 13:29
*General Assessment Last Done: 08/02/23 13:29
*Neglect/Abuse Screening Last Done: 08/02/23 13:29
ED- Fall Risk Assessment Last Done: 08/02/23 13:29
*ED COVID-19 Vaccine History Last Done: 08/02/23 10:16
*Nursing Disposition Last Done: 08/02/23 13:29
ED-Skin Assessment Last Done: 08/02/23 13:29
ED-Peripheral Vascular Assessment Last Done: 08/02/23 13:29
ED-Musculoskeletal Assessment Last Done: 08/02/23 13:11
Discharge Date and Time
Discharge Date/Time: 08/02/23 13:30
Print Language: TAJIK
[2023-08-02] MEDS: TYLENOL 1000 MG PO (12:47)
[2023-08-02] MEDS: DECADRON 10 MG PO (12:47)
[2023-08-02 12:54] VITALS: BP 107/60; BMI 21.2
== END 2023-08-02 13:30 | disposition home or self-care (01) ==
LOC: EMR 10:06
PROVIDERS: EMERGENCY PHYSICIAN Emergency Medicine; FAMILY PHYSICIAN Family Medicine
DX: M54.32 Sciatica, left side (principal); M47.816 Spondylosis without myelopathy or radiculopathy, lumbar region; E03.9 Hypothyroidism, unspecified; E78.00 Pure hypercholesterolemia, unspecified; K21.9 Gastro-esophageal reflux disease without esophagitis; I35.0 Nonrheumatic aortic (valve) stenosis; J45.909 Unspecified asthma, uncomplicated; M19.90 Unspecified osteoarthritis, unspecified site; Z96.642 Presence of left artificial hip joint
CPT/HCPCS: 99283; 72100; 73502

== ENCOUNTER → 2023-12-26 14:17 | Outpatient (REF) | payer OTHER, SELFPAY | LOC: RCS 14:17 | PROVIDERS: ATTENDING PHYSICIAN Internal Medicine Cardiovascular Disease; FAMILY PHYSICIAN Nurse Practitioner Primary Care | DX: I35.0 Nonrheumatic aortic (valve) stenosis (principal) | CPT/HCPCS: 93017 ==

== ENCOUNTER 2024-01-12 10:47 | Emergency (ER) | payer OTHER, SELFPAY ==
[2024-01-12 10:52] VITALS: BP 118/83
--- NOTE | 2024-01-12 11:36 | ED.GENMED ---
History of Present Illness
General
Chief Complaint: Musculo-Skeletal Complaint
Time Seen by Provider: 01/12/24 11:36
History of Present Illness
History of Present Illness:
TIME OF INITIAL ENCOUNTER: 11:40 AM
HPI: Patient came in by ambulance due to onset of right hip pain. There was no trauma. She has a history of bilateral hip replacements. She came in by ambulance and EMS noted that she had some hypotension earlier.
EXAM:
GENERAL: Well appearing in no distress
HEENT: Moist oral mucosa
CARDIOVASCULAR: No murmurs, normal heart rate, regular rhythm, No chest wall tenderness
PULMONARY: No respiratory distress, breath sounds are clear and equal
ABDOMEN: Soft with no peritoneal signs, no tenderness
NEUROLOGIC: Excellent strength all extremities, no coordination deficits
PSYCHIATRIC: Appropriate mental status, normal insight and judgement
EXTREMITIES: Some decreased active range of motion into flexion at the right hip due to pain but no significant pain with passive rotation at the right, no evidence of infection, tenderness to palpation over the right greater trochanter
SKIN: No rash, no lesions
NUMBER AND COMPLEXITY OF PROBLEMS ADDRESSED AT THE ENCOUNTER
� Chronic conditions affecting care: Hypothyroidism, asthma, has had bilateral hip replacements
� Acute Exacerbation and/or Progression of Chronic Illness: This is an acute problem
� Differential Diagnosis includes: Hip dislocation, infection very unlikely based on exam
AMOUNT AND/OR COMPLEXITY OF DATA TO BE REVIEWED AND ANALYZED
� I performed an independent evaluation of and my interpretation is:
EKG:
CT:
X-rays: I personally reviewed x-rays and agree with radiologist interpretation that there is no acute abnormality
Laboratory Studies: White count minimally elevated 11.1, hemoglobin 10.0, chemistries relatively unremarkable
Other:
� Review of other/old records: I reviewed old records, hemoglobin today is higher than prior
� Clinical information was obtained by an independent historian: I spoke to the daughter at home
� Prescriptions/Medications Considered but not given:
� Further testing considered but not performed:
RISK OF COMPLICATIONS AND/OR MORBIDITY OR MORTALITY OF PATIENT MANAGEMENT
� Social determinants of health affecting care: Lives at home
� Discussion with other providers: Discussed with physical therapy at 1:40 PM; I also left a message with case management
� Escalation of care including admission/observation vs risk of discharge considered: The patient was given Tylenol upon arrival. Although EMS reported some concerns for blood pressure readings, vital signs here remained
unremarkable.
ANY OTHER UPDATES:
1:30 PM: I reassessed patient�only minimal improvement despite Tylenol. Will add a one-time dose of Toradol, renal function is normal. We did get her up and walker and she required assistance with both me and daughter along with a cane.
2:20 PM: She worked with physical therapy who recommends a walker and home PT. Overall she is significant proved after an IV dose of Toradol was given. Suspect a degree of bursitis as she has tenderness over the right greater trochanter
Past History
Past History
ED Past Medical History: Asthma, Hypercholesterolemia and Other (arthritis)
ED Past Surgical History: Appendectomy, Cholecystectomy and Orthopedic (Bilateral knee replacements, bilateral hip replacements)
Social History
Tobacco: Non-smoker
Alcohol: None
Drug: None
Personal: Single
Living: with family (Lives with daughter)
Phy Exam
Physical Exam
Physical Exam:
See HPI
Course
Orders/Labs/Results
Orders:
Orders
01/12/24 11:41
Acetaminophen [Tylenol] 1,000 mg PO NOW STA
CR Hip - RT w/wo Pel 2-3 Vw* Urgent
Comment:
Reason For Exam: nontraumatic pain
Include a pelvis x-ray?: Yes
01/12/24 11:45
Basic Metabolic Panel Urgent
Complete Blood Count/With Diff Urgent
01/12/24 13:39
Ketorolac [Toradol] 15 mg IV NOW STA
01/12/24 13:40
Physical Therapy Consult [Pt Eval And Treat] Urgent
Activity Level: Ambulate
01/12/24 13:41
Case Management Consult ONCE
Case Management Consult: VN/Home Care
Abnormal Lab Results
01/12/24
11:45
WBC 11.1 H 10^3/uL
(4.8-10.8)
RBC 3.26 L 10^6/uL
(4.20-5.40)
Hgb 10.0 L g/dL
(12.0-16.0)
Hct 32.0 L %
(37.0-47.0)
MCHC 31.3 L g/dL
(33.0-37.0)
Abs Immat Gran (auto) 0.1 H 10^3/uL
(0-0.05)
Absolute Neuts (auto) 9.8 H 10^3/uL
(1.4-6.5)
Absolute Lymphs (auto) 0.7 L 10^3/uL
(1.2-3.4)
Neutrophils % 88.6 H %
(42.2-75.2)
Lymphocytes % 6.2 L %
(20.5-51.1)
Glucose 124 H mg/dl
(70-99)
01/12/24 11:45
01/12/24 11:45
Vital Signs
Initial and Last Documented VS:
Initial Vital Signs
Temp Pulse Resp BP Pulse Ox
36.4 C 51 18 118/83 99
01/12/24 10:52 01/12/24 10:52 01/12/24 10:52 01/12/24 10:52 01/12/24 10:52
Last Documented Vital Signs
Temp Pulse Resp BP Pulse Ox
36.4 C 63 20 111/49 98
01/12/24 10:52 01/12/24 13:30 01/12/24 13:30 01/12/24 13:00 01/12/24 13:30
*Critical Care Note
Total Time (30-74mins, 75-104mins- exclusive of procedures): Not Applicable
ED Attending Note
-
Portions of this chart may have been created with voice recognition software.� Occasional wrong word or��sound alike� substitutions may have occurred due to the inherent limitations of voice recognition software.
Discharge Plan
Departure
Patient Disposition: Home (Routine Discharge)
Date of Disposition: 01/12/24
Time of Disposition: 14:57
Patient with high blood pressure during this ER visit?: No
Discharge Problem:
Bursitis
Instructions: Bursitis (DC)
Prescriptions:
No Action
sertraline 50 MG tablet
50 mg PO DAILY
levothyroxine 75 mcg Tablet
75 mcg PO DAILY
rosuvastatin 5 mg Tablet
5 mg PO DAILY
pantoprazole [Protonix] [address] For Susp In Packet
40 mg PO DAILY
acetaminophen [Acetaminophen Extra Strength] 500 mg tablet
1,000 mg PO QID PRN (Reason: fever or pain) Qty: 120 0RF
prednisone 20 mg tablet
40 mg PO DAILY Qty: 8 0RF
Referrals:
Arnold Carrillo MD [Active] - Follow up in 2-3 days
Makenna Kowalski CRNP [Family Provider] -
Activity Restrictions/Additional Instructions:
The x-rays of the right hip and pelvis showed no acute abnormality. There is no sign of dislocation or complication from prior surgery. We gave you Tylenol and then an IV dose of Toradol. I recommend that you take Celebrex (in addition to
Tylenol) as Celebrex and Toradol are both anti-inflammatory medicines. I did leave a message with case management as well as physical therapy recommended home physical therapy. I also recommend that you follow with Dr. Carrillo.
Interventions
Interventions:
*General Assessment Last Done: 01/12/24 10:52
ED- Fall Risk Assessment Last Done: 01/12/24 11:02
ED-Musculoskeletal Assessment Last Done: 01/12/24 11:02
Discharge Date and Time
Print Language: UKRAINIAN
[2024-01-12] MEDS: TYLENOL 1000 MG PO (11:55)
[2024-01-12 12:09] LABS: % Basophils 0.2 % (0-2); % Eosinophils 0.4 % (0-6); % Immature Granulocytes 0.5 % (0-0.5); % Lymphocytes 6.2 % (20.5-51.1); % Monocytes 4.1 % (1.7-9.3); % Neutrophils 88.6 % (42.2-75.2); Absolute Immature Granulocytes 0.1 10^3/uL (0-0.05); Absolute Lymphocytes 0.7 10^3/uL (1.2-3.4); Absolute Monocytes 0.5 10^3/uL (0.1-0.6); Absolute Neutrophils 9.8 10^3/uL (1.4-6.5); Mean Corp Hgb Conc. 31.3 g/dL (33.0-37.0); Mean Corpuscular Hgb 30.7 pg (27.0-31.0); Mean Corpuscular Volume 98.2 fL (81.0-99.0); Mean Platelet Volume 9.8 fL (7.4-10.4); Nucleated Red Blood Cells % 0 %; Platelet Count 154 10^3/uL (130-400); Red Blood Cell Count 3.26 10^6/uL (4.20-5.40); Red Cell Dist. Width 12.9 % (11.5-14.5); White Blood Cell Count 11.1 10^3/uL (4.8-10.8)
[2024-01-12 12:28] LABS: Blood Urea Nitrogen 13 mg/dl (7-17); Calcium 9.1 mg/dl (8.4-10.2); Carbon Dioxide 28 mmol/L (22-30); Chloride 107 mmol/L (98-107); Glucose 124 mg/dl (70-99); Potassium 4.2 mmol/L (3.5-5.1); Sodium 142 mmol/L (135-145); eGFR > 60.00
[2024-01-12 13:00] VITALS: BP 111/49
[2024-01-12] MEDS: TORADOL 15 MG IV (13:50)
--- NOTE | 2024-01-12 16:30 | VNURNOTE ---
[facility] liaison called contact- daughter Etta. She requested this author call sister Jaqueline in 10 mins. This author called sister as requested. No answer, not able to leave . Made second attempt to call, no answer. Referral placed in [facility].
--- NOTE | 2024-01-12 16:30 | CM ---
Alert awake oriented patient who lives with her dgt Etta in a 1 story home with 1 steps to enter.Spoke with dgt pt had left ED by3:30 pm. As per dgt Etta who she lives with she is independent in driving and all activates of daily living.She walker
with and with and without milind,a rolator and cane.Offered VN to Dgt Etta requested [facility] . LM x3 with tiera Michel(Jaqueline) and pt no call back . Fela Bernal liaison [facility] aware.
No VN in past . No SNF hx
Pharmacy [facility]
PCP Dr Makenna Kowalski
PLAN Home with [facility] if accepted
== END 2024-01-12 15:32 | disposition home or self-care (01) ==
LOC: EMR 10:47
PROVIDERS: EMERGENCY PHYSICIAN Emergency Medicine; FAMILY PHYSICIAN Nurse Practitioner Primary Care
DX: M70.71 Other bursitis of hip, right hip (principal); J45.909 Unspecified asthma, uncomplicated; E78.00 Pure hypercholesterolemia, unspecified; M19.90 Unspecified osteoarthritis, unspecified site; Z90.49 Acquired absence of other specified parts of digestive tract; Z96.643 Presence of artificial hip joint, bilateral; Z96.653 Presence of artificial knee joint, bilateral
CPT/HCPCS: 99283; 96374; 73502; 80048; 85025

== ENCOUNTER → 2024-06-25 10:54 | Outpatient (REF) | payer MEDICARE, SELFPAY | LOC: RCS 10:54 | PROVIDERS: ATTENDING PHYSICIAN Internal Medicine Cardiovascular Disease; FAMILY PHYSICIAN Nurse Practitioner Primary Care | DX: I35.0 Nonrheumatic aortic (valve) stenosis (principal) | CPT/HCPCS: 93306 ==

== ENCOUNTER → 2024-07-02 16:58 | Outpatient (REF) | payer MEDICARE, SELFPAY | LOC: RAD 16:58 | PROVIDERS: ATTENDING PHYSICIAN Internal Medicine Cardiovascular Disease; FAMILY PHYSICIAN Nurse Practitioner Primary Care | DX: R60.0 Localized edema (principal) | CPT/HCPCS: 93970 ==

== ENCOUNTER 2024-08-13 14:50 | Emergency (ER) | payer MEDICARE, SELFPAY ==
[2024-08-13] VITALS (22 sets, daily range): BP systolic 116–162; BP diastolic 48–99; BMI 22.0
--- NOTE | 2024-08-13 15:41 | ED.GENMED ---
History of Present Illness
General
Chief Complaint: Musculo-Skeletal Complaint
Source: patient
Time Seen by Provider: 08/13/24 15:32
History of Present Illness
History of Present Illness:
The patient is an 89-year-old female with a past medical history significant for right hip replacement approximately ten years ago, presenting with right hip dislocation. The dislocation occurred while the patient was getting dressed, specifically
while sitting in a chair and trying to put on a pair of hose. She reports associated pain down her leg but did not experience a fall or additional injury. The patient recalls this occurring three years prior, for which she was successfully treated
at the same emergency room. She denies use of blood thinners and reports regular follow-up with a dock superintendent for aortic stenosis. Of note the patient states that his hip was replaced in [facility] about 10 years ago. She does not recall the
name of the surgeon.
Past History
Past History
ED Past Medical History: Asthma, Hypercholesterolemia and Other (arthritis)
ED Past Surgical History: Appendectomy, Cholecystectomy and Orthopedic (Bilateral knee replacements, bilateral hip replacements)
Social History
Tobacco: Non-smoker
Alcohol: None
Drug: None
Personal: Single
Living: with family (Lives with daughter)
Phy Exam
Physical Exam
Physical Exam:
- Vital Signs: Nursing notes reviewed and vital signs reviewed.
- Neurological: Normal sensation and capillary refill in lower extremities; normal pulses.
- Cardiovascular: Heart murmur noted; patient reports being advised previously.
- Abdominal: No tenderness upon palpation.
- Pulmonary: Lungs clear to auscultation.
- Airway: Mallampati score of 2.
-Extremity: Right leg shortened and internally rotated. Significant pain with minimal movement
Course
Orders/Labs/Results
Orders:
Orders
08/13/24 15:43
Hip, Right 2-3 Views [CR Hip - RT w/wo Pel 2-3 Vw*] Urgent
Comment:
Reason For Exam: right hip pain
Include a pelvis x-ray?: No
08/13/24 15:49
Basic Metabolic Panel Urgent
Complete Blood Count/With Diff Urgent
08/13/24 15:51
Fentanyl Citrate/Pf [Sublimaze] 50 mcg IV NOW STA
08/13/24 17:42
Propofol [Diprivan] 20 ml .ROUTE .STK-MED
08/13/24 18:06
CR Hip - RT without Pel 1 Vw Urgent
Reason For Exam: post reduction
Abnormal Lab Results
08/13/24
15:49
RBC 3.61 L 10^6/uL
(4.20-5.40)
Hgb 11.2 L g/dL
(12.0-16.0)
Hct 33.6 L %
(37.0-47.0)
Plt Count 123 L 10^3/uL
(130-400)
MPV 10.5 H fL
(7.4-10.4)
Absolute Lymphs (auto) 1.1 L 10^3/uL
(1.2-3.4)
Lymphocytes % 15.4 L %
(20.5-51.1)
BUN 21 H mg/dl
(7-17)
Glucose 113 H mg/dl
(70-99)
08/13/24 15:49
08/13/24 15:49
Vital Signs
Initial and Last Documented VS:
Initial Vital Signs
Temp Pulse Resp BP Pulse Ox
97.7 F 65 20 119/55 97
08/13/24 14:57 08/13/24 14:57 08/13/24 14:57 08/13/24 14:57 08/13/24 14:57
Last Documented Vital Signs
Temp Pulse Resp BP Pulse Ox
97.7 F 73 15 133/75 96
08/13/24 18:45 08/13/24 20:33 08/13/24 20:33 08/13/24 20:33 08/13/24 21:00
Procedures
Moderate Sedation
ASA Risk Score: Class II
Chart and allergies reviewed: Yes
Consent for anesthesia obtained: Yes
Time out completed (validating right patient & procedure): Yes
Moderate Sedation Start Time(when first medication is given): 17:58
History of difficult intubation: No
Airway free of obstruction: Yes
Patient has a gag reflex: Yes
Patient is able to open mouth: Yes
Patient has no dentures: Yes
Patient has no loose teeth: Yes
Medication administered by Provider during Moderate Sedation: IV Propofol (mg)
Total dose administered: 90
Time drug administered: 17:58
Moderate Sedation Procedure End Time: 18:10
Joint/Fracture Reduction
Right Hip:
Indication for procedure:: Prosthetic hip dislocation
Procedure completed by: Myself
Consent form signed: Yes
Joint reduced: with anesthesia sedation
Anesthesia/sedation: Moderate sedation
Injury was: closed
Further treatement: needs re-check only
Post reduction exam: stable
Capillary Refill: normal
Normal distal neurovascular exam?: Yes
Peripheral Pulses: posterior tibial (left): 3+, posterior tibial (right): 3+, dorsalis pedis (left): 3+ and dorsalis pedis (right): 3+
MDM/Problems Addressed
Differential Diagnosis Includes:
The Differential Diagnosis includes, in no particular order and is not limited to:
- Hip dislocation
- Hip fracture
- Muscular strain
- Ligament sprain
- Prosthetic joint complication
MDM/Problems Addressed:
Imaging confirmed the patient's right hip is dislocated. Appears to be a superior lateral dislocation. We were ultimately able to reduce the hip with procedural sedation. Patient feels much better post procedure. Stable for discharge home.
Postreduction x-ray shows adequate reduction. I do not identify any acute fractures. Patient states she does have a local orthopedic surgeon I recommend she follow-up with them.
*Pulse Oximetry
SaO2: 97
Oxygen Mode of Delivery: Room air
Patient hypoxic: no
*Critical Care Note
Total Time (30-74mins, 75-104mins- exclusive of procedures): Not Applicable
ED Attending Note
-
Portions of this chart may have been created with voice recognition software.� Occasional wrong word or��sound alike� substitutions may have occurred due to the inherent limitations of voice recognition software.
Discharge Plan
Departure
Patient Disposition: Home (Routine Discharge)
Date of Disposition: 08/13/24
Time of Disposition: 19:16
Patient with high blood pressure during this ER visit?: No
Condition: Good
Discharge Problem:
Hip dislocation, right
Instructions: Hip Dislocation (DC), Sedation for procedures in adults - Discharge instructions
Prescriptions:
No Action
sertraline 50 MG tablet
50 mg PO DAILY
levothyroxine 75 mcg Tablet
75 mcg PO DAILY
rosuvastatin 5 mg Tablet
5 mg PO DAILY
pantoprazole [Protonix] [address] For Susp In Packet
40 mg PO DAILY
acetaminophen [Acetaminophen Extra Strength] 500 mg tablet
1,000 mg PO QID PRN (Reason: fever or pain) Qty: 120 0RF
prednisone 20 mg tablet
40 mg PO DAILY Qty: 8 0RF
Referrals:
Makenna Kowalski CRNP [Family Provider, Internal Medicine]
Activity Restrictions/Additional Instructions:
Please very careful about bending over or other movements that are likely to cause your hip to come out again. Follow-up with your orthopedic surgeon.
Interventions
Interventions:
*Risk Screen - Suicide Last Done: 08/13/24 14:57
*General Assessment Last Done: 08/13/24 14:57
*Neglect/Abuse Screening Last Done: 08/13/24 14:57
*ED- Fall Risk Assessment Last Done: 08/13/24 14:57
*ED COVID-19 Vaccine History Last Done: 08/13/24 14:57
*Nursing Disposition Last Done: 08/13/24 21:00
ED-Musculoskeletal Assessment Last Done: 08/13/24 20:30
Discharge Date and Time
Discharge Date/Time: 08/13/24 21:01
Print Language: YAKUT
[2024-08-13] MEDS: SUBLIMAZE 50 MCG IV (16:00)
[2024-08-13 16:12] LABS: Blood Urea Nitrogen 21 mg/dl (7-17); Calcium 9.4 mg/dl (8.4-10.2); Carbon Dioxide 24 mmol/L (22-30); Chloride 106 mmol/L (98-107); Estimated Creatinine Clearance 48 ml/min; Glucose 113 mg/dl (70-99); Potassium 4.5 mmol/L (3.5-5.1); Sodium 138 mmol/L (135-145); eGFR > 60.00
[2024-08-13 16:17] LABS: % Basophils 0.4 % (0-2); % Eosinophils 1.6 % (0-6); % Immature Granulocytes 0.4 % (0-0.5); % Lymphocytes 15.4 % (20.5-51.1); % Neutrophils 75.2 % (42.2-75.2); Absolute Eosinophils 0.1 10^3/uL (0-0.7); Absolute Lymphocytes 1.1 10^3/uL (1.2-3.4); Absolute Monocytes 0.5 10^3/uL (0.1-0.6); Absolute Neutrophils 5.5 10^3/uL (1.4-6.5); Hematocrit 33.6 % (37.0-47.0); Hemoglobin 11.2 g/dL (12.0-16.0); Mean Corp Hgb Conc. 33.3 g/dL (33.0-37.0); Mean Corpuscular Volume 93.1 fL (81.0-99.0); Mean Platelet Volume 10.5 fL (7.4-10.4); Nucleated Red Blood Cells % 0 %; Platelet Count 123 10^3/uL (130-400); Red Blood Cell Count 3.61 10^6/uL (4.20-5.40); Red Cell Dist. Width 12.8 % (11.5-14.5); White Blood Cell Count 7.3 10^3/uL (4.8-10.8)
== END 2024-08-13 21:01 | disposition home or self-care (01) ==
LOC: EMR 14:50
PROVIDERS: EMERGENCY PHYSICIAN Emergency Medicine; FAMILY PHYSICIAN Nurse Practitioner Primary Care
DX: T84.020A Dislocation of internal right hip prosthesis, initial encounter (principal); X58.XXXA Exposure to other specified factors, initial encounter; Y79.2 Prosthetic and other implants, materials and accessory orthopedic devices associated with adverse incidents; E78.00 Pure hypercholesterolemia, unspecified; J45.909 Unspecified asthma, uncomplicated; M19.90 Unspecified osteoarthritis, unspecified site; R01.1 Cardiac murmur, unspecified; Z96.653 Presence of artificial knee joint, bilateral; Z96.643 Presence of artificial hip joint, bilateral; Z90.49 Acquired absence of other specified parts of digestive tract
CPT/HCPCS: 99285; 27265; 96374; 99152; 73501; 73502; 80048; 85025

== ENCOUNTER → 2024-12-24 14:39 | Outpatient (REF) | payer MEDICARE, SELFPAY | LOC: RCS 14:39 | PROVIDERS: ATTENDING PHYSICIAN Internal Medicine Cardiovascular Disease; FAMILY PHYSICIAN Nurse Practitioner Primary Care | DX: I35.0 Nonrheumatic aortic (valve) stenosis (principal) | CPT/HCPCS: 93306 ==

== ENCOUNTER → 2025-01-14 10:43 | Outpatient (REF) | payer MEDICARE, SELFPAY ==
[2025-01-14 14:07] LABS: Blood Urea Nitrogen 16 mg/dl (7-17); Calcium 9.5 mg/dl (8.4-10.2); Carbon Dioxide 31 mmol/L (22-30); Chloride 100 mmol/L (98-107); Glucose 94 mg/dl (70-99); Potassium 4.4 mmol/L (3.5-5.1); Sodium 137 mmol/L (135-145); eGFR > 60.00
== END ==
LOC: RAD 10:43
PROVIDERS: ATTENDING PHYSICIAN Internal Medicine Cardiovascular Disease; FAMILY PHYSICIAN Nurse Practitioner Primary Care
DX: R79.89 Other specified abnormal findings of blood chemistry (principal); I35.0 Nonrheumatic aortic (valve) stenosis; R60.0 Localized edema; R01.1 Cardiac murmur, unspecified
CPT/HCPCS: 36415; 74174; 75572; 80048; Q9967

== ENCOUNTER → 2025-01-21 10:27 | Outpatient (REF) | payer MEDICARE, SELFPAY ==
[2025-01-21 11:28] LABS: Hematocrit 38.7 % (37.0-47.0); Hemoglobin 12.2 g/dL (12.0-16.0); Mean Corp Hgb Conc. 31.5 g/dL (33.0-37.0); Mean Corpuscular Volume 99.2 fL (81.0-99.0); Nucleated Red Blood Cells % 0 %; Platelet Count 160 10^3/uL (130-400); Red Cell Dist. Width 12.7 % (11.5-14.5)
[2025-01-21 12:00] LABS: ALT (SGPT) 12 U/L (0-35); AST (SGOT) 28 U/L (14-36); Albumin 4.7 g/dl (3.5-5.0); Alkaline Phosphatase 103 U/L (38-126); Blood Urea Nitrogen 16 mg/dl (7-17); Calcium 9.8 mg/dl (8.4-10.2); Carbon Dioxide 29 mmol/L (22-30); Chloride 105 mmol/L (98-107); Glucose 102 mg/dl (70-99); Potassium 5.3 mmol/L (3.5-5.1); Sodium 139 mmol/L (135-145); Total Protein 7.2 g/dl (6.3-8.2); eGFR > 60.00
== END ==
LOC: REG 10:27
PROVIDERS: ATTENDING PHYSICIAN Nurse Practitioner Adult Health
DX: I35.0 Nonrheumatic aortic (valve) stenosis (principal)
CPT/HCPCS: 36415; 80053; 85025

== ENCOUNTER 2025-01-22 06:17 | Day surgery (SDC) | payer MEDICARE, SELFPAY ==
[2025-01-22] VITALS (14 sets, daily range): BP systolic 98–154; BP diastolic 61–95; BMI 22.0
[2025-01-22] MEDS: LOW STRENGTH ASPIRIN 324 MG PO (07:13)
[2025-01-22] MEDS: NSS 169 ML IV (07:13)
--- NOTE | 2025-01-22 08:33 | ITS.CL.CATH ---
[facility] - Catheterization
Cardiac Catheterization
Procedure Report:
CARDIAC CATHETERIZATION REPORT
Date of Procedure: 01/22/2025
Referring: Brain Kirkland D.O.
Indication: Severe symptomatic aortic valve stenosis.
PROCEDURE:
1. Right heart catheterization.
2. Coronary angiography.
A total of 11 minutes of procedural/moderate sedation was utilized. An independent medical claims examiner was present to assist with and help manage the patient's level of consciousness and physiologic status.
ACCESS:
1. 6 Swazi right radial artery using a modified Seldinger technique.
2. 5 Swazi right antecubital vein using a previously placed IV.
CATHETERS:
1. 5 Swazi balloon.
2. 5 Swazi JL 3.5.
3. 5 Swazi JR4.
HEMODYNAMIC DATA
Weight (kg): 56.2
AO (s/d/x, mmHg): 147/66/100
LV (s/x, mmHg): Not obtained.
PCWP (a/v/x, mmHg): 16/17/11
PA (s/d/x, mmHg): 30/14/19
RV (s/x, mmHg): 32/6
RA (a/v/x, mmHg): 10/8/6
SVC SvO2 (%): 70.4
IVC SvO2 (%): Not obtained.
RA SvO2 (%): Not obtained.
RV SvO2 (%): Not obtained.
PA SvO2 (%): 64.6
SaO2 (%): 95.0
Hbg (g/dL): 10.8
MODESTA
CO (L/min): 3.03
CI (L/min/m2): 1.92
Thermodilution
CO (L/min): Not performed.
CI (L/min/m2): Not performed.
TPG (mmHg): 8
PVR (Shell Units): 2.64
SVR (dynes*seconds*cm^-5): 2482
AVO2 Diff (Volume %): 4.46
Cardiac Power Output (almeida): 0.67 (MAP * CO)/451 (normal 0.5 - 0.7; 0.4 - 0.6 in the elderly)
Cardiac Power Index (almeida/m2): 0.43 (MAP * CI)/451
Sowmya: 2.67 (PAs-PAd)/RA
AV gradient (x, mmHg): Not obtained.
AV area (cm2): Not obtained.
MV gradient (x, mmHg): Not obtained.
MV area (cm2): Not obtained.
LEFT VENTRICULOGRAPHY: Not performed.
AORTOGRAPHY: Not performed.
CORONARY ANGIOGRAPHY
Dominance: Right.
Left Main: Normal size, trifurcating vessel. There is no coronary artery disease.
LAD: Normal size vessel giving rise to 1 diagonal before wrapping around the apex. There are luminal irregularities with 10-20% lesions in the proximal and mid vessel.
Ramus: Large size vessel supplying the anterolateral wall. There is a 20% lesion in the proximal vessel.
Circumflex: Large size, nondominant vessel with 1 large obtuse marginal. There is no coronary artery disease.
RCA: Normal size, dominant vessel. There are minor luminal irregularities.
INTERVENTIONS
None.
Closure Device: Vascular band for the right radial artery, manual pressure for the right antecubital vein.
Radiation dose (mGy): 165.7
DAP (cm2.Gy): 9.2413
Fluoroscopy time (minutes): 3.3
CONCLUSIONS:
1. Right dominant circulation with luminal irregularities and 10-20% lesions in the proximal and mid LAD, a 20% lesion in the proximal ramus and luminal irregularities in the RCA.
2. Normal filling pressures (PCWP = 11 mmHg at 56.2 kg).
3. Severe aortic valve stenosis on echocardiography.
4. Normal cardiac performance parameters (cardiac index = 1.92 L/min/m�, AVO2 difference = 4.46 volume%, cardiac power output = 0.67 W, Sowmya = 2.67).
5. Severely elevated SVR (2482 dynes*seconds*cm^-5).
RECOMMENDATIONS:
1. Expectant management after cardiac catheterization via right radial/antecubital approach.
2. Limited weight bearing right wrist for one week.
3. Continue transcatheter aortic valve replacement workup.
4. Stable for outpatient follow-up.
Copy to: Brain Kirkland D.O., Makenna Kowalski, AGPCNP-BC
Brain Kirkland, DO, FACC, FACP
[2025-01-22] MEDS: NSS 1000 IV (08:50)
== END 2025-01-22 12:45 | disposition home or self-care (01) ==
LOC: CATH 06:17
PROVIDERS: ATTENDING PHYSICIAN Internal Medicine Cardiovascular Disease; FAMILY PHYSICIAN Nurse Practitioner Primary Care
DX: I35.0 Nonrheumatic aortic (valve) stenosis (principal); I25.10 Atherosclerotic heart disease of native coronary artery without angina pectoris; E78.00 Pure hypercholesterolemia, unspecified; Z96.643 Presence of artificial hip joint, bilateral; Z96.653 Presence of artificial knee joint, bilateral
CPT/HCPCS: 99152; 93456; C1769; Q9967

== ENCOUNTER 2025-02-06 07:26 | Inpatient (IN) | payer MEDICARE, SELFPAY ==
[2025-01-30 08:19] VITALS: BMI 23.0
[2025-01-30 09:22] LABS: Urine Character Clear (Clear)
[2025-01-30 09:24] LABS: Hematocrit 33.4 % (37.0-47.0); Hemoglobin 10.9 g/dL (12.0-16.0); Mean Corp Hgb Conc. 32.6 g/dL (33.0-37.0); Mean Corpuscular Volume 94.4 fL (81.0-99.0); Nucleated Red Blood Cells % 0 %; Platelet Count 150 10^3/uL (130-400); Red Cell Dist. Width 12.9 % (11.5-14.5)
[2025-01-30 09:28] LABS: Urine White Cell 70-80 /HPF (0-5)
[2025-01-30 09:35] LABS: INR 1.02; PT 13.2 Sec (11.4-14.6)
[2025-01-30 10:46] LABS: ALT (SGPT) 13 U/L (0-35); AST (SGOT) 29 U/L (14-36); Albumin 4.4 g/dl (3.5-5.0); Alkaline Phosphatase 103 U/L (38-126); Blood Urea Nitrogen 15 mg/dl (7-17); Calcium 9.5 mg/dl (8.4-10.2); Carbon Dioxide 24 mmol/L (22-30); Chloride 106 mmol/L (98-107); Estimated Creatinine Clearance 44 ml/min; Glucose 151 mg/dl (70-99); Potassium 4.1 mmol/L (3.5-5.1); Sodium 139 mmol/L (135-145); Total Protein 6.8 g/dl (6.3-8.2); eGFR > 60.00
--- NOTE | 2025-01-30 11:24 | CM ---
spoke to pt and daughter in PAT's. we discussed preop TAVR restrictions including lifting and driving restrictions. she is prev indep, uses a cane and rollator, lives with a daughter. pt has the TAVR educ book, soap and instructions. she is
agreeable to a f/u visit from the ct transitional care nurse after dc. cm role explained and all questions answered.
[2025-01-30 12:16] LABS: Glycohemoglobin (HgbA1c) 5.5 % (4.0-5.9)
[2025-02-06] VITALS (37 sets, daily range): BP systolic 88–144; BP diastolic 51–99; BMI 22.7
--- NOTE | 2025-02-06 10:46 | ITS.CL.TAVR ---
Supply Technician - TAVR Report
TAVR PRocedure
Procedure Report:
TRANSCATHETER AORTIC VALVE REPLACEMENT REPORT
Date: 02/06/2025
Referring physician: Brain Kirkland D.O.
Preop diagnosis: Severe aortic valve stenosis.
Postop diagnosis: Severe aortic valve stenosis.
Procedure: Delayed transcatheter aortic valve replacement (TAVR) using a #23 Bazzi SERGEY S3 Resilia THV.
Operators: Brain Kirkland DO, Matthew Thomas, M.D.
Findings: Severely calcified and stenotic aortic valve.
Anesthesia: Conscious sedation was provided by the anesthesia staff.
Estimated blood loss: Negligible.
Complications: None.
Condition: Stable
Procedure:
The patient was brought to the cardiac lab rn after consent and was prepped and draped in standard sterile fashion. Conscious sedation was provided by the anesthesia staff. After a 'Time Out,' bilateral common femoral arteries and the left
common vein were access using a modified Seldinger technique with a micropuncture kit under ultrasound guidance. A 6 Cameroonian sheath was placed in the left femoral vein. Angiography performed through the micropuncture sheath confirmed satisfactory
arterial placement in the left common femoral artery. The micropuncture sheath was replaced with a 6Fr sheath in the left MIRROR DEPARTMENT SUPERVISOR. Angiography through the micropuncture kit confirmed satisfactory arterial placement in the right common femoral artery.
The right MIRROR DEPARTMENT SUPERVISOR was dilated with an 8FR dilator and preclosed with two Perc-Close devices. An 8Fr sheath was placed in the RCFA. A temporary pacing wire was advanced through the left femoral vein and into the right ventricle. The pacemaker
demonstrated good capture and was set to back up. A 5Fr pigtail catheter was advanced through the left femoral sheath and seated in the right coronary cusp. Angiography confirmed co-planar angles.
An AL-1 catheter was advanced through the 8Fr sheath, the J wire was exchanged for an Amplatz Extra-Stiff wire and the catheter and the 8 Fr sheath was removed. The 14 Fr Bazzi E-Sheath was inserted over the wire and into the descending aorta.
Heparin 7000 units was given. The SERGEY S3 was prepared on the back table. Orientation was confirmed by both physicians. The AL-1 catheter was re-advanced through the E-sheath to the level of the ascending aorta. The Extra-Stiff wire was
removed and a soft tip straight wire was advanced through the AL-1. The straight tip wire was used to cross the aortic valve and the catheter was advanced into the left ventricle. The straight wire was removed. Left ventricular pressure was
measured. An Amplatz Extra-Stiff wire with curved proximal end was advanced through the catheter and into the left ventricular apex. The catheter was removed. ACT was checked and confirmed to be > 250 seconds.
The valve was advanced over the Extrastiff wire and into the descending aorta. The balloon was pulled back and the valve was mounted on the balloon. The valve was advanced through the aortic arch and into the aortic valve annulus. The pusher
device was withdrawn to allow for balloon expansion. Low volume aortography confirmed good position of the valve. The valve was deployed during rapid ventricular pacing. Echocardiography and aortography confirmed a good result with no aortic valve
insufficiency and a 5 mmHg mean gradient. The valve deployment system was removed. The Bazzi E-Sheath was then removed and hemostasis obtained with the two Perc-Close sutures. Final angiography demonstrated no evidence of ileofemoral
dissection/perforation and good runoff below the common femoral artery. The pacemaker and the pigtail catheter were removed. The left femoral artery sheath was removed using a 6 Cameroonian Angio-Seal. The left femoral venous sheath was removed and
manual pressure was applied with excellent hemostasis. Protamine 40 mg was administered.
Radiation
Dose (mGy): 184
DAP (cm2.Gy): 16.8
Fluoroscopy time (minutes): 9.8
TAVR Echo Gradient (mmHg): 5
LV (s/x, mmHg): 188/19
TAVR Cath Gradient (mmHg): Not obtained.
Conclusions:
1. Successful placement of #23 Sergey S3 Resilia aortic valve via right transfemoral approach with no acute complications.
2. Complete heart block requiring backup pacemaker. The patient will require permanent pacemaker which will be placed later today.
Brain Kirkland, DO, FACC, FACP
Copy to: Brain Kirkland D.O., Makenna Kowalski, [facility]
--- NOTE | 2025-02-06 10:48 | W.CVOR.SURPR ---
CVOR Surgeon Immed Pre Op
-
I have examined this patient prior to performance of the scheduled procedure.
The patient's condition is unchanged from the time of the dictated/written History and
Physical and the patient is able to undergo the scheduled procedure.
--- NOTE | 2025-02-06 10:49 | W.IMMPOSTOP ---
Addendum entered and electronically signed by Tito Estrada MD 02/06/25 11:14:
[id number]
Original Note:
Surgical Immed Post Op Note
-
STRUCTURAL HEART PROCEDURE NOTE:
Preoperative Dx:
Severe aortic stenosis (P/M: 81/59), YVETTE 0.62, LVEF: 65%
Pre-existing RBBB, 1AVB
Mild CAD
HTN
HChol
Asthma
Depression
Hiatal hernia
Overactive bladder
OA
GERD
Candidal esophagitis (02/2019)
Postoperative Dx:
Same
Procedures:
1. Right CIVIL ENGINEERING DESIGNER access with tactile, ultrasound, and fluoroscopic guidance, micropuncture technique, limited angiography, 8 Stateless dilator placement
2. Perclose placement x 2 to right CIVIL ENGINEERING DESIGNER, 8 Stateless sheath placement
3. Left CFV access with ultrasound and fluoroscopic guidance, micropuncture technique, long 6 Stateless sheath placement
4. Left CIVIL ENGINEERING DESIGNER access with tactile, ultrasound, and fluoroscopic guidance, micropuncture technique, limited angiography, long 6 Stateless sheath placement
5. Placement of temporary RV pacing wire under fluoroscopic guidance, threshold testing
6. Placement of pigtail catheter in RCC with limited aortography and confirmation of coplanar valve deployment views
7. Achievement of active wire purchase through right iliofemoral system utilizing AL-1 exchange catheter
8. Placement of Bazzi E sheath via right CIVIL ENGINEERING DESIGNER access (systemic heparin)
9. Wire purchase across the patient stenotic aortic valve (somewhat challenging, attempted with AL-1, soft-tipped straight, table J, soft-tipped straight, LVEDP assessment [19 mmHg], extra-stiff wire)
10. Right transfemoral TAVR with placement of 23 mm KRYSTAL 3 Resilia valve
11. Completion aortography
12. Completion TTE assessment (mean gradient 5 mmHg, no AI/PVL)
13. Temporary pacing wire secured in situ secondary to pacer dependence post TAVR procedure
14. Removal of valve delivery system and Bazzi E sheath from right CIVIL ENGINEERING DESIGNER with management with Perclose sutures x 2, manual pressure
15. Completion right iliofemoral angiography
16. Removal of left CIVIL ENGINEERING DESIGNER 6 Stateless sheath with management with 6 Stateless Angio-Seal, manual pressure (protamine administration)
illusionist:
Dr. Brain Kirkland
Cardiac Surgeon:
Dr. Tito Estrada
Anesthesia:
Local to bilateral groins, MAC anesthesia
Implants:
Bazzi Lifesciences, 23 mm KRYSTAL 3 Resilia valve serial #[id number]
Perclose sutures x 2 to right CIVIL ENGINEERING DESIGNER
6 Stateless Angio-Seal x 1 to left CIVIL ENGINEERING DESIGNER
Cath Data:
Start: 0959 hrs., deploy: 1026 hrs., end: 1043 hrs.
FT: 9.8 minutes, mGy: 184, DAP: 16.8, Contrast: 89
Post-TTE: mean gradient 5mmHg, no AI/PVL
Complications:
Not unexpectedly, this patient required pacing following this procedure. It is likely that she will require PPM. EP aware.
Condition:
Stable/guarded to recovery with temporary pacing wire secured in situ
[2025-02-06 10:56] LABS: ACT-LR - POC 268 Seconds (116-155)
[2025-02-06] MEDS: NSS 500 VEN SHEATH (11:12)
[2025-02-06] MEDS: LEVOPHED 250 IV (11:12)
[2025-02-06 12:16] LABS: ACT-LR - POC > 397 Seconds (116-155)
--- NOTE | 2025-02-06 12:50 | CM ---
Chart reviewed. Patient is in the OR today. Patient is independent of ADLS, lives with her daughter in a [address], [facility], ambulates with a SPC and a rollator. Plan is for the patient to return home with CT Transitional RN. CM to follow
--- NOTE | 2025-02-06 13:46 | PTCARENOTE ---
Patient received from recyclable materials sorter recovery at approx 1230. Assessed surgical sites with set up operator tool. Right femoral site with gauze and tegaderm C/D/I, no evidence of oozing or hematoma formation, right pedal pulse weak to palpation. Left femoral site
with venous sheath and temporary pacemaker present, site intact, no evidence of oozing or hematoma formation. Left pedal pulse obtainable with doppler. Temporary pacemaker settings at VVI/Rate 80/Ma 20 as ordered. 100% vpacing on telemetry with
underlying SR. SaO2 on RA 97-99%. Norepinephrine initially infusing at 4mcg/min but was able to be titrated down to 3mcg/min. Neurological check WDL. Family at bedside. Purewick draining clear yellow urine. The patient denies pain. Dr. Garza to
bedside to consent patient for permanent pacemaker. Report given to EP lab nurses. Patient to EP lab at approximately 1330. Care ongoing.
--- NOTE | 2025-02-06 15:21 | ITS.CL.PACE ---
Pump Tester - Pacemaker Implant
Pacemaker Implant
Procedure Report:
Left Bundle Branch pacing dual chamber Permanent Pacemaker Placement:
Ms. 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
pacemaker.
Indications:
High degree heart block.
Date of the Procedure: 02/06/25
Pre-Operative Diagnosis: Advanced heart block
Post-Operative Diagnosis: Advanced heart block
Procedure Performed: LEFT BUNDLE BRANCH PACING WITH DUAL CHAMBER PERMANENT PACEMAKER IMPLANTATION.
Performing physician:
Princess Garza MD
Anesthesia:
See anesthesia records
Detailed Description of the Procedure:
The patient was identified using hospital identification and informed consent obtained for the procedure. The risks were explained to the patient and the family including, but not limited to: Bleeding, infection, arrhythmia, stroke,
vascular/cardiac/lung puncture, surgery, pacemaker dependency/device malfunction. All questions were answered.
Anesthesia service provided sedation as reported separately. Antibiotics administered IV for risk of bacterial colonization. After obtaining informed and written consent, the patient was brought to the electrophysiology laboratory.
The initial rhythm was paced rhythm form temporary wire.
A timeout was performed immediately before the procedure. The left chest was prepped from the nipple to the angle of the jaw with chlorhexidine, and draped following sterile technique in usual routine.
A surgical pause and time out was performed immediately prior to the procedure with review of her medical history, recent labs, allergies and medications with site of procedure identified and consent noted in the chart. Antibiotics pre operatively
given. All team members concurred.
The procedure site was meticulously prepared with surgical scrub and allowed to dry with no pooling. Sterile draping was applied to cover the procedure site. The image intensifier was draped with sterile bag and positioned over the patient.
The left infraclavicular region was prepped and draped in the usual sterile fashion. Local anesthesia was administered subcutaneously using 1% lidocaine / Bupivacaine. The left cephalic vein cutdown was done but the cephalic vein was rudimentray and
no access could b obtained. An axillary vein was accessed and guide wires were advanced to the inferior vena cava (IVC) under flouro guidance.
A subcutaneous pocket was created with blunt dissection and use of electrocautery. Hemostasis was excellent.
Attention then was turned to the left bundle branch pacing lead. The guide wire was advanced to the RA and was advanced to the RV. The preformed curved long hemostatic peel away HIS sheath was advanced into the RV cavity. A left bundle pacing wire
was advanced into the sheath to the tip with ventricular signals noted with unipolar manner. The sheath with the pacing lead was moved deeper into the RV cavity from the HIS location on the septum at a more inferior and distal to the HIS signals
based on the aortic valve location.
Once adequate signals were noted on the electrograms of the pacing lead in the sheath with W pattern signals on the RV septum, the lead was advanced and clockwise turns were done under fluoroscopic guidance. The septum was engaged and the lead was
paced intermittently after every 2-3 turns. The Impedance of the lead was measured that remained stable around 900 Ohm and the lead was not able to advance into the septum. The ventricular capture was monitored throughout and the captures gradually
changed from RV pacing to non-selective pacing to LBB pacing with R wave on V1.
With RBBB pattern noted on the pacing lead, it was decided to accept the location as optimal location. The long guiding sheath was cut and removed from the RV without change in lead position, impedance, sensing, or capture. The lead was sutured to
the underlying pectoralis fascia with 2-0 Ti-Cron stitches.
The RA lead was anchored in the right atrial appendage with engaging the active-fixation apparatus. There was high threshold noted and decision was made to relocate the atrial lead to another location. There was excellent sensing, pacing, and
impedance from the leads, with no diaphragmatic stimulation at 10 V output.�Bovie cautery, antibiotics, and fluoroscopy were used.
A pursestring suture using 2-0 Polysorb suture was applied at the insertion site. The leads were attached to the pulse generator in standard configuration with acceptable sensing and threshold parameters. The pocket was irrigated with antibiotic
solution; the pocket was inspected with no active bleeding noted. The device and the leads were placed in the pocket.
A Tyrx pouch was placed around the device and the leads.
Deep subcutaneous tissues were closed with 3 layers of 2-0V loc sutures; and the dermis was reopposed using a running 4-0 Biosyn subcuticular suture. Sponge counts / sharp counts were appropriate.
Procedure End:
The procedure was tolerated well. Aquacel bandaged was applied. A pressure dressing was applied.
Estimated Blood loss:
5 cc
Specimens Removed:
No cultures and no specimens were obtained. No intraoperative pathology was identified.
Urine output:
None
Packs / Drains/ Tubes:
None
Instrument / Sponge Count Correct:
Yes
Complications of the Procedure:
None
Condition of Patient at Time of Transfer:
Hemodynamically stable with no neurological or vascular compromise.
Device information:�
Generator: AlgEvolve; Model: W1DR01; Serial # [id number]�
Atrial Lead: Medtronic; Model: 5076-45; Serial # [id number]
Measured data in the right atrium was sensing of 2.1 mV, impedance of 456 ohms and threshold of 1.0 V at 0.4ms�
LBB pacing lead: Medtronic; Model: 3830-69; Serial # [id number]
Measured data on the RV lead was sensing of 20mV, impedance of 855 ohms and threshold of 1.0V at 0.4ms
PROGRAMMING PARAMETERS:�
Gopi parameter settings were AAIR <=>DDDR 60-130 bpm
Paced AV interval: 180ms
Sensed AV interval: 150 ms.
Rate Adaptive A-V Interval: off
Mode switch on
Summary:
Successful implantation of MRI compatible LBB pacing dual chamber pacemaker.
Results/Recommendations:
-Please follow up CXR�
1. Please provide patient with adequate pain control�
Instructions to be given to patient:�
- Please follow up with [facility] to get your wound checked in 2 weeks of your discharge. Then follow with
- Do not wet incision site until after it is evaluated at cardiology clinic. No baths or showers until then. Sponge baths / showers are OK but dab dry the dressing after it is wet.�
- Allow 'steri strips' to fall off on their own�
- Do not lift left elbow above shoulder, particularly with sudden jerking movements, for 1 month�
- Do not lift anything weighing more than 5 pounds with the left arm for 1 month�
- If you notice any fevers, shortness of breath, lightheadedness, chest pain, or worsening swelling in the wound site, please contact the arrhythmia clinic, contact your continuous conveyor screen drier, or present to the hospital for evaluation.�
Princess Garza MD
Electrophysiology
--- NOTE | 2025-02-06 16:29 | PTCARENOTE ---
Patient received from EP lab s/p PPM insertion. Left chest wall aquacell C/D/I, no evidence of hematoma or oozing. Radial pulse palpable. SR with first degree AVB and RBBB on telemetry. SaO2 on RA 97%. Neurological check WDL. The patient endorses
mild pain at the PPM incision. Venous sheath removed by EP lab RNs with hemostasis at 1535. Bilateral groin sites with gauze and tegaderm C/D/I, no evidence of hematoma or oozing. Bilateral pedal pulses weak to palpation. Discussed activity
restrictions with patient and daughters who are at bedside. Norepinephrine gtt remains in infusing. Call benton within reach. Care ongoing.
--- NOTE | 2025-02-06 19:13 | PTCARENOTE ---
Crepitus noted around patient's left chest pacemaker. Small amount of old drainage noted and marked. Site tender to palpation but soft and no evidence of hematoma or swelling noted. Notified Dr. Garza regarding crepitus. Pressure dressing applied
per Dr. Garza's instruction. Care ongoing.
[2025-02-06] MEDS: OCUVITE SOFTGEL 1 CAP PO (20:24)
[2025-02-06] MEDS: TYLENOL 650 MG PO (20:24)
[2025-02-06] MEDS: ANCEF 5 IV (22:07)
--- NOTE | 2025-02-07 02:15 | PTCARENOTE ---
Received pt from day shift, AAOx3, VSS NS on the monitor with BBB, first degree block, occasionally A and V paced and occasional PVC's. Pt is post TAVR and PPM procedures. B/L groin sites CDI. Pt's left chest aquacel dressing with small amount of
drainage circled and was noted to have crepitus earlier. Pacemaker is DDDR 60-130. IS given to patient and explained how to use, pt was able to get up to 1750. Pt with slight discomfort in chest site and also left shoulder from immobilzer, PRN
tylenol given with good relief.
[2025-02-07 04:31] VITALS: BP 110/50
[2025-02-07 05:06] VITALS: BMI 23.5
[2025-02-07] MEDS: TYLENOL 650 MG PO (05:10)
[2025-02-07] MEDS: SYNTHROID 50 MCG PO (05:13)
[2025-02-07] MEDS: ANCEF 5 IV (05:13)
[2025-02-07 05:39] LABS: Blood Urea Nitrogen 13 mg/dl (7-17); Calcium 8.6 mg/dl (8.4-10.2); Carbon Dioxide 28 mmol/L (22-30); Chloride 105 mmol/L (98-107); Estimated Creatinine Clearance 44 ml/min; Glucose 91 mg/dl (70-99); Magnesium 2.1 mg/dl (1.6-2.3); Potassium 4.3 mmol/L (3.5-5.1); Sodium 136 mmol/L (135-145); eGFR > 60.00
[2025-02-07 06:04] LABS: Hematocrit 30.7 % (37.0-47.0); Hemoglobin 10.2 g/dL (12.0-16.0); Mean Corp Hgb Conc. 33.2 g/dL (33.0-37.0); Mean Corpuscular Volume 93.3 fL (81.0-99.0); Platelet Count 129 10^3/uL (130-400); Red Cell Dist. Width 12.8 % (11.5-14.5)
[2025-02-07 06:57] VITALS: BP 110/57
--- NOTE | 2025-02-07 07:38 | W.PN.CT ---
Today's Communication / Plan
-
-pod #1
-no issues overnight
-groins are stable, nontender, no hematoma b/l
-nsr overnight, no bradycardia or pacing
-Echo today
-current meds (ASA, Crestor, Synthroid, Celebrex, Protonix, Zoloft)
-ambulate
-possible d/c home today
Assessment / Plan
-
- Severe symptomatic - s/p Right transfemoral TAVR with placement of 23 mm KRYSTAL 3 Resilia valve on 02/06/25, pod #1
- Post-TTE: mean gradient 5mmHg, no AI/PVL
- LVEDP 19 mmHg
- Advanced heart block post TAVR - s/p implant of pacemaker on 02/06/25
- Pre-existing RBBB, 1AVB
- Mild CAD
- HTN
- HChol
- Asthma
- Depression
- Hiatal hernia
- Overactive bladder
- OA
- GERD
- Candidal esophagitis (02/2019)
Discussed patient care with: Nursing and Care Team
Subjective
-
Date of Service: February 07, 2025
Objective Data
-
Lab Results
02/07/25 04:55
02/07/25 04:55
PT 13.2 Sec (11.4-14.6) 01/30/25 08:45
INR 1.02 01/30/25 08:45
Vital Signs
Vital Signs
Temp Pulse Resp BP Pulse Ox
97.2 F 79 20 110/50 96
02/07/25 06:58 02/07/25 05:30 02/07/25 06:58 02/07/25 04:31 02/07/25 06:58
CT Intake/Output/Weight
12/02/07/25 02/07/25
18:59 06:59 18:59
Intake Total 1800 / 1800
Output Total 300 / 850 550 / 850
Balance 1500 / 950 -550 / 950
SaO2: 96
Physical Exam
-
General: Awake and AOx3
Cardiovascular: Regular rate & rhythm, No Murmurs and No Rub
Respiratory: Decreased Breath Sounds
Incision: Clean (groins are cdi, soft, nontender, no hematoma b/l)
Extremities: No Edema (2+ DPs b/l)
Abdomen: soft, nontender, nondistended, + bowel sounds
Data Reviewed
-
Lab Results: Results Reviewed
Medications: Active Meds Reviewed
Chest X-Ray: Report Reviewed and Image Reviewed
ECG: Report Reviewed and Image Reviewed
[2025-02-07] MEDS: PROTONIX 20 MG PO (07:45)
[2025-02-07] MEDS: CRESTOR 2.5 MG PO (07:45)
[2025-02-07] MEDS: ZOLOFT 50 MG PO (07:45)
[2025-02-07] MEDS: OCUVITE SOFTGEL 1 CAP PO (07:45)
[2025-02-07] MEDS: ASPIR LOW (ENTERIC COATED) 81 MG PO (07:46)
[2025-02-07] MEDS: OSCAL CAL 500 500 MG PO (07:46)
[2025-02-07] MEDS: VITAMIN D3 (cholecalciferol) 25 MCG PO (07:46)
[2025-02-07] MEDS: CELEBREX 200 MG PO (07:46)
--- NOTE | 2025-02-07 07:49 | W.DCSUMMARY ---
Discharge Summary
Discharge Data
Date of Admission: 02/06/25
Date of Discharge: 02/07/25
-
Pending Results: No
Hospital Course
Primary care physician: Makenna Batista
Outpatient tree doctor: Brain Kirkland
Inpatient consultants: [facility]
Procedures:
1. TAVR (02/06/25)
2. Dual-chamber permanent pacemaker (02/06/25)
Primary Diagnosis:
1. Severe aortic stenosis
Secondary Diagnoses:
1. Pre-existing RBBB, 1AVB
2. Mild coronary artery disease
3. Hypertension
4. Hyperlipidemia
5. Asthma
6. Depression
7. Hiatal hernia
8. Overactive bladder
9. OA
10. GERD
11. Candidal esophagitis (02/2019)
- acute postop complete heart block requiring permanent pacer
HPI: 89-year-old female was electively admitted on 02/06/2025 for TAVR due to severe aortic stenosis.
Hospital course: Patient underwent a right transfemoral TAVR #23mm Sergey 3 Resilia by Drs. Estrada/Isael. For further details, please see operative report. Patient noted to be in complete heart block postprocedure requiring left femoral transvenous
pacing. Patient was evaluated by EP and underwent dual-chamber pacer insertion by Dr. Simmons later that afternoon. Postop day #1 ECG reports normal sinus rhythm. Chest x-ray without pulmonary abnormality. Bilateral groin sites soft without
hematoma. Transthoracic echo reports an EF of 70-75% with AV gradients 13/7 mmHg, and trace paravalvular leak. Labs on day of discharge: WBC 10.9, hemoglobin 10.2, platelets 129k, sodium 136, K4.3, creatinine 0.7. Patient ambulated in hallways and
deemed stable for discharge to home.
Home medication changes:
none
Discharge Plan
-
Patient Disposition: Home (Routine Discharge)
Discharge Diagnosis/Procedures: Aortic Stenosis s/p Right Transfemoral TAVR (23 mm Sergey 3) with Dr. Tito Estrada & Dr. Brain Kirkland on 02/06/25
Complete Heart Block s/p PPM with Dr. Garza 02/06/25
Condition: Good
Diet: Low Fat, Low Cholesterol and 2 Gram Sodium
Activity: As tolerated
Additional Activity: No heavy lifting anythiner greather than 10 pounds for 1-week.
Driving Restrictions: No driving for 1 week
Bathing Restrictions: OK to Shower
Others Tests: YOUR 30-DAY FOLLOW UP ECHOCARDIOGRAM: 03/11/25 at 1:00 pm at [facility]
Other Services: Cardiac Rehab
Wound Care: No lotions, creams, or powders on procedural sites.
Keep proceduredural sites clean and dry.
No soaking in bathtub, hottub, pool, ect for 1-week or until procedural sites heal.
Notify your provider if you see any redness, drainage, swelling, or lump at procedural site.
Specialty Instructions: Weigh Daily- Call MD for wt gain/loss 3 lbs overnight/5 lbs in 1 week
Stand Alone Forms: DC Inst - Implanted Device
Referrals:
CT Transitional Care Nurse [Outside]
Referral Note: The Cardiothoracic Transitional Care Nurse will call you to set up a visit in 1-2 days. Please have them remove your pacemaker dressing in 7 -10 days
Tracy Tapia CRNP [Specified Professional Personl, Cardiology] - 03/25/25 10:00 am
Makenna Kowalski CRNP [Family Provider, Internal Medicine]
Prescriptions:
Continued
sertraline 50 MG tablet
50 mg PO DAILY
rosuvastatin 5 mg Tablet
2.5 mg PO Q48H
celecoxib 200 mg Capsule
200 mg PO DAILY
levothyroxine 50 mcg Tablet
50 mcg PO DAILY
cholecalciferol (vitamin D3) [Vitamin D3] 25 mcg (1,000 unit) Capsule
25 mcg PO DAILY
lxlnxrdcbdlf-ywjztjdr-heqvpx Tablet
1 tab PO DAILY
PreserVision AREDS 2,148 mcg-113 mg-45 mg-17.4mg Tablet
1 tab PO BID
Fish Oil
1 cap PO QPM
Tylenol PM
2 tab PO HS
pantoprazole [Protonix] 20 mg Tablet,Delayed Release (Dr/Ec)
20 mg PO DAILY
calcium carbonate 500 mg calcium (1,250 mg) Tablet
500 mg PO DAILY
Zinc
20 mg PO DAILY
aspirin 81 mg Tablet
81 mg PO DAILY
Discharge Orders:
Discharge Patient (As Directed); Ordered 02/07/25
Ordered By: Tiki Perrin
Care Plan Goals
Care Plan Goals:
Problem: Readiness for enhanced knowledge related to diagnosis and treatment plan
Goal: Understand your diagnosis and treatment plan needs, including medications if applicable.
Instructions: Know your diagnosis, underlying causes and treatment plan options, including medications if applicable. Consult with your health care team to learn about your diagnosis and treatment plan, including medications if applicable.
Discharge Date and Time
Print Language: TELUGU
--- NOTE | 2025-02-07 07:57 | W.PN.ANS.POP ---
Anesthesia Post Operative
- Anesthesia Post Op Note
Vital Signs Stable-See Nursing Note: Yes
Airway Patent: Yes
Adequate Pain Control: Yes
Change in Mental Status: No
Current Postoperative Nausea & Vomiting: No
Anesthesia Complications: No
General Anesthetic Recall: No
Unplanned Admission: No
Post Op Hydration Adequate: Yes
--- NOTE | 2025-02-07 08:43 | W.PN.CD ---
Today's Communication / Plan
-
Post procedure echo.
Discharge planning.
Impression / Plan
-
Impression/Plan: 89 y/o female with hypothyroidism, GERD, HLD, RBBB/1st degree AVB and severe aortic valve stenosis admitted for elective TAVR.
#Severe aortic valve stenosis
-Chronic, progressive.
-S/P #23 Bazzi SERGEY S3 Resilia TAVR via RCFA approach.
-Procedure complicated by CHB. Patient was taken for PPM yesterday afternoon.
-Since PPM, telemetry shows NSR/RBBB with occasional pacing.
-Access sites are C/D/I.
-Antithrombotic therapy with aspirin monotherapy.
-TTE pending.
#HLD
-Chronic, stable.
-Resume home rosuvastatin.
#AV block/RBBB
-Chronic, progressive.
-CHB after TAVR yesterday, now s/p PPM.
#Dispo:
-IVU status.
-Full code.
-Echo pending.
-Discharge pending echocardiogram results.
Subjective/Interval History:
Successful TAVR yesterday complicated by CHB (expected), treated with PPM.
Feels well.
DATA:
PPM, 02/06/2025:
Generator: [employer]pagetronic; Model: W1DR01; Serial # [id number]
Atrial Lead: Medtronic; Model: 5076-45; Serial # [id number]
LBB pacing lead: Medtronic; Model: 3830-69; Serial # [id number]
TAVR, 02/06/2025:
Conclusions:
1. Successful placement of #23 Sergey S3 Resilia aortic valve via right transfemoral approach with no acute complications.
2. Complete heart block requiring backup pacemaker. The patient will require permanent pacemaker which will be placed later today.
Physical Exam
Vital Signs/Labs
Vital Signs
Temp Pulse Resp BP Pulse Ox
36.2 C 99 20 110/57 96
02/07/25 06:58 02/07/25 08:30 02/07/25 06:58 02/07/25 06:57 02/07/25 07:44
02/05/25 02/06/25 02/07/25
11:59 11:59 11:59
Actual Weight 56.245 kg 58.2 kg
02/07/25 04:55
02/07/25 04:55
PT 13.2 Sec (11.4-14.6) 01/30/25 08:45
INR 1.02 01/30/25 08:45
Magnesium 2.1 mg/dl (1.6-2.3) 02/07/25 04:55
01/30/25
08:45
Cej-Z-Yecebfmnghr Pept 571
Physical Exam
Constitutional: No acute distress and Comfortable
EENT: Anicteric and Moist mucous membranes
Cardiovascular: Rhythm & rate is regular, Pedal edema is absent, JVD pressure is normal, S1S2 is normal and Murmur/rub/gallop absent
Respiratory: Respiratory effort normal, Lungs clear to auscul., Wheeze Absent, Crackles Absent and Rhonchi Absent
GI: Soft, Distention absent, Flat, Non tender and Normal bowel sounds
Neuro/Psych: AO x 3
Other: Cath Site (Bilateral femoral access sites are C/D/I. Left pectoral pacer site is under a bandage.)
Data Reviewed
-
Date of Service: February 07, 2025
Medical Decision Making: Reviewed Test Results, Independent Historian Assessment and Test Interpretation
EKG: Tracing Personally Visualized and interpreted and Report Reviewed by me
Echo: Tracing Personally Visualized and interpreted and Report Reviewed by me
X-Ray/CT/US/MRI/NUC/PET: Image Personally Visualized and interpreted and Report Reviewed by me
Medical Tests (PFT, Pathology etc): Image Personally Visualized and interpreted and Report Reviewed by me
Labs: Labs Reviewed by me
Old Records: Reviewed
--- NOTE | 2025-02-07 09:01 | W.CARD.DEVCH ---
Cardiac Device Check
-
Device: Pacemaker
[employer] Analyst: Medtronic
The patient's device was interrogated with assistance of the device order entry representative followed by a complete physician review. The device had normal function. No abnormalities seen.
Pressure dressing removed.
No hematoma or fluctuations noted.
--- NOTE | 2025-02-07 09:46 | PTCARENOTE ---
Assumed care at 0700. Patient AO x3. NSR 1st degree HB, BBB, occasional A or V-paced beats. HR in the 80's. Purwick discontinued, OOB to chair, walks with rolling walker. Left anterior Aquacel dressing scant drainage. Pressure dressing removed. No
crepitus. B/L femoral sites CDI. Patient in chair, using call benton for assistance out of bed.
[2025-02-07 11:31] VITALS: BP 76/46; BP 94/78
[2025-02-07 11:32] VITALS: BP 91/59
[2025-02-07 11:33] VITALS: BP 94/78
[2025-02-07 11:40] VITALS: BP 121/54
--- NOTE | 2025-02-07 12:06 | PTCARENOTE ---
Patient discharged to home. IV and telemetry removed. Instructions reviewed, she verbalized understanding. Escorted to main lobby in a wheelchair
== END 2025-02-07 12:08 | disposition home or self-care (01) | DRG 267 ==
LOC: IVU 07:26
PROVIDERS: Internal Medicine Cardiovascular Disease; ADMITTING PHYSICIAN Thoracic Surgery (Cardiothoracic Vascular Surgery); CONSULT PHYSICIAN Internal Medicine Cardiovascular Disease; FAMILY PHYSICIAN Nurse Practitioner Primary Care
PROC: 0JH606Z Insertion of Pacemaker, Dual Chamber into Chest Subcutaneous Tissue and Fascia, Open Approach (ICD-10-PCS; 2025-02-06)
PROC: 3E0102A Introduction of Anti-Infective Envelope into Subcutaneous Tissue, Open Approach (ICD-10-PCS; 2025-02-06)
PROC: 02HK3JZ Insertion of Pacemaker Lead into Right Ventricle, Percutaneous Approach (ICD-10-PCS; 2025-02-06)
PROC: 02RF38Z Replacement of Aortic Valve with Zooplastic Tissue, Percutaneous Approach (ICD-10-PCS; 2025-02-06)
PROC: 02H63JZ Insertion of Pacemaker Lead into Right Atrium, Percutaneous Approach (ICD-10-PCS; 2025-02-06)
PROC: 4B02XSZ Measurement of Cardiac Pacemaker, External Approach (ICD-10-PCS; 2025-02-07)
DX: I35.0 Nonrheumatic aortic (valve) stenosis (principal); I44.2 Atrioventricular block, complete; I45.10 Unspecified right bundle-branch block; I25.10 Atherosclerotic heart disease of native coronary artery without angina pectoris; I10 Essential (primary) hypertension; E78.5 Hyperlipidemia, unspecified; J45.909 Unspecified asthma, uncomplicated; F32.A Depression, unspecified; N32.81 Overactive bladder; K21.9 Gastro-esophageal reflux disease without esophagitis
CPT/HCPCS: 33208; 33361; 36415; 71045; 71046; 80048; 80053; 81003; 81015; 82248; 83036; 83735; 83880; 85025; 85027; 85347; 85610; 86850; 86900; 86901; 86920; 87070; 87086; 93005; 93308; 93321; 93325; C1760; C1769; C1785; C1887; C1894; C1898; Q9967

== ENCOUNTER 2025-02-09 13:45 | Inpatient (IN) | payer MEDICARE, SELFPAY ==
[2025-02-09] VITALS (55 sets, daily range): BP systolic 54–164; BP diastolic 41–65
[2025-02-09 11:01] LABS: B.E. -22.0 mmol/L; O2 Saturation % 99.6 % (94-98); PCO2 45 mmHg (32-35); PO2 137 mmHg (83-108)
--- NOTE | 2025-02-09 11:04 | ED.GENMED ---
History of Present Illness
General
Chief Complaint: CODE
Source: ambulance crew
Exam Limitations: clinical condition and altered mental status
Time Seen by Provider: 02/09/25 10:47
Nursing documentation reviewed up to this point in time: agreed with
History of Present Illness
History of Present Illness:
Patient is status post TAVR procedure with pacemaker placement afterwards secondary to complete heart block last week, discharged home 3 days ago, presents to ED secondary to witnessed syncopal episode at home. Per paramedics, patient was walking
with her walker with her daughter at her side, when she 'collapsed' onto the floor. 911 was called and police arrived at scene. Shock advised for which patient received 1 shock by [place] police who arrived at scene first. When paramedics
arrived, patient was unresponsive but with pulse. Patient was intubated at scene for airway protection and also provided with multiple push dose of epinephrine secondary to hypotension. Upon arrival, patient is somnolent and unresponsive, with
patient being bagged actively. Unable to obtain any further information.
Past History
Past History
ED Past Medical History: Asthma, Hypercholesterolemia and Other (arthritis)
ED Past Surgical History: Appendectomy, Cholecystectomy and Orthopedic (Bilateral knee replacements, bilateral hip replacements)
Social History
Tobacco: Non-smoker
Alcohol: None
Drug: None
Personal: Single
Living: with family (Lives with daughter)
Review of Systems
Review of Systems
Allergies reviewed?: Yes
Unable to obtain full review of systems at this time due to: intubated
All Other Systems: Not applicable
Phy Exam
Physical Exam
Physical Exam:
Physical Exam
General: moderate distress, acutely ill. afebrile. unresponsive
Head: nc/at
Neck: supple. normal range of motion.
Heart: s1/s2 regular rate and rhythm
Lungs: no acute respiratory distress. clear bilaterally
Abdomen: normal bowel sounds. no distention
Neuro: somnolent and no response to verbal or physical stimuli
Skin: no rash
Extremities: no edema.
Course
Orders/Labs/Results
Orders:
Orders
02/09/25
Echo Follow up Study W Dop Stat
Reason for Study: cardiac arrest
02/09/25 10:46
EKG [Electrocardiogram (*1)] Urgent
Reason for Study: Chest Pain
02/09/25 10:47
EKG- Treatment ONCE
ABG [Arterial Blood Gas] Stat
%Oxygen/Room Air: 40
CR Chest Portable - 1 View Urgent
Comment:
Reason For Exam: s/p intubation. ETT placement
Reason Study Needs to be Portable: Patient Unstable
02/09/25 10:48
CT Head W/o Iv Contrast Urgent
Comment:
Reason For Exam: s/p arrest with mental status change
02/09/25 10:55
Complete Blood Count/With Diff Urgent
Comprehensive Metabolic Panel Urgent
NT-proBNP Urgent
PTT Urgent
Prothrombin Time Urgent
Troponin I Urgent
02/09/25 10:57
Lorazepam [Ativan] 2 mg .ROUTE .STK-MED ONE
02/09/25 10:58
Lorazepam [Ativan] 1 mg IV NOW STA
02/09/25 11:01
Vecuronium [place] [Norcuron] 10 mg .ROUTE .STK-MED ONE
02/09/25 11:02
Lorazepam [Ativan] 2 mg IV NOW STA
Sterile Water [Sterile Water For Injection] 10 ml .ROUTE .STK-MED ONE
Vecuronium [place] [Norcuron] 10 mg IV NOW STA
02/09/25 11:03
FentaNYL 1,000 MCG/100 ML [Sublimaze] 1,000 mcg in 100 ml IV NOW
Indication:: Light Sedation
Begin Infusion:: Now
Goal:: pain score </= 1, CPOT 0-2
Maximum dose in mcg/hr:: 300
Initial Dose in mcg/hr:: 25
Titration Instructions:: Titrate every 30 minutes if patient exhibits signs of pain or discomfort
Titration Instructions:: (pain score >/= 2, CPOT >/= 3).
Titration Instructions:: Administer bolus dose and increase infusion by 25 mcg/hr.
Taper Instructions:: If pain score at goal for 4 consecutive hours (pain score </= 1, CPOT 0-2)
Taper Instructions:: decrease infusion by 50 mcg/hr every 2 hours.
Taper Instructions:: When dose </= 50 mcg/hr may turn infusion off and consider PRN
Taper Instructions:: intermittent bolus doses only.
Over-sedation Instructions:: If CPOT 0-2 (goal) and RASS -3 to -5 (below goal) decrease sedative by 50%
Over-sedation Instructions:: first. If pain score remains at goal and RASS remains below goal in 1 hour,
Over-sedation Instructions:: decrease opioid infusion by 50%.
Notify provider:: immediately if pt exhibits: chest wall rigidity, hemodynamic instability,
Notify provider:: agitation/pain despite maximum dosing, pain when RASS below goal.
Additional Instructions:: Patient MUST be mechanically ventilated.
Fentanyl Citrate/Pf [Sublimaze] 50 mcg IV [id number] PRN
Fentanyl Citrate/Pf [Sublimaze] 65 mcg IV NOW STA
02/09/25 11:12
CT Chest/abd/pel W Iv Cont Urgent
Comment:
Reason For Exam: recent TAVR with abd discomfort
02/09/25 11:15
Carboxymethylcellulose [Refresh Celluvisc Gel] 1 drops OPHTH Q12H
NORepinephrine 4 MG/250 ML [Levophed] 4 mg in 250 ml IV PER PROTOCOL
Initial dose in mcg/min, then titrate:: 5
Titrate to keep:: SBP > 90 mmHg
Titrate by mcg/min:: 1-2 mcg/min
Frequency of titrations (minutes):: 5
Maximum dose in ICU in mcg/min:: 30
Maximum dose in IMU in mcg/min:: 8
Maximum dose in IVU in mcg/min:: 4
Begin to taper infusion when:: Remained at goal for 4hrs
Taper by mcg/min:: 1-2 mcg/min
Frequency of taper (minutes) if patient maintains goal:: 30
Taper to off?: Yes
If infusion off & no longer maintaining goal:: Contact Provider
02/09/25 11:59
Lactate Level [Lactic Acid] Urgent
02/09/25 13:06
Admit/Transfer Patient As Directed
Co-Sign Provider:
Level of Care: Inpatient admission
Assign to:: ICU
Physician / Group: miguely
Diagnosis: S/P cardiac arrest , acute VDRF , shock presumed cardiogenic
Reason for Hospitalization: S/P cardiac arrest , acute VDRF , shock presumed cardiogenic
Expected length of stay greater than two midnights?: Yes
ELOS- Estimated Length of Stay in days: 7
I certify the patient meets the requirements for IP care: Yes
02/09/25 13:08
Code Status As Directed
Resuscitation Status: Full Code
02/09/25 13:37
Code Status As Directed
Resuscitation Status: Limited DNR
Limited DNR: -No CPR
Decision communicated with: 2 daughters at bed side
Physician note:: Chemical code ( Pressor, Anti arrhythmic)
02/09/25 13:41
Harris [Harris Placement- Treatment] ONCE
Reason for insertion: Acute Kidney Injury
02/09/25 14:43
0.9% Sodium Chloride 1000 ml [Nss] 1,000 ml IV 100 mls/hr
Acetaminophen [Tylenol/Feverall] 650 mg RECTAL Q4HPRN PRN
Bisacodyl [Dulcolax] 10 mg RECTAL [id number] PRN
Docusate W/Senna [Senokot-S] 1 tablet PO BIDPRN PRN
Polyethylene Glycol Powder [Miralax] 17 grams PO DAILYPRN PRN
02/09/25 14:43
CARDIOLOGY CONSULT Urgent
Consulting Provider: Brain Kirkland
Was physician already notified: Yes
Reason for consult: cardiac arrest
Transformer Mechanic Consult Urgent
Consulting Provider: Liz Dow
Was physician already notified: Yes
Reason for consult: cardiac arrest , acute VDRF
NEUROLOGY CONSULT Routine
Consulting Provider: Jatinder Tinajero
Was physician already notified: Yes
Reason for consult: Cardiacc arrest , s/p CPR - no neuro recovery yet
Activity As Directed
Activity Level: With Assistance
Intake/ Output As Directed
Frequency: Per unit guidelines
Neurological Checks As Directed
Frequency: q2h
Pneumatic Compression Sleeves As Directed
Type: Knee high
Small bore feeding tube placement [Place Small Bore Feeding Tube-ICU only] Routine
Vital Signs As Directed
Frequency: Per unit guidelines
Weight As Directed
Frequency: Daily
DX Deep Vein Thrombosis Video Routine
02/10/25 02:16
Complete Blood Count/No Diff IN AM
Comprehensive Metabolic Panel IN AM
Prothrombin Time IN AM
02/11/25 06:00
Complete Blood Count/No Diff IN AM
Comprehensive Metabolic Panel IN AM
Prothrombin Time IN AM
02/12/25 06:00
Complete Blood Count/No Diff IN AM
Comprehensive Metabolic Panel IN AM
Prothrombin Time IN AM
02/13/25 06:00
Complete Blood Count/No Diff IN AM
Comprehensive Metabolic Panel IN AM
Abnormal Lab Results
02/09/25 02/09/25 02/09/25
10:47 10:55 11:59
WBC 16.1 H 10^3/uL
(4.8-10.8)
RBC 2.62 L 10^6/uL
(4.20-5.40)
Hgb 8.0 L D g/dL
(12.0-16.0)
Hct 26.9 L %
(37.0-47.0)
MCV 102.7 H fL
(81.0-99.0)
MCHC 29.7 L g/dL
(33.0-37.0)
Abs Immat Gran (auto) 0.8 H 10^3/uL
(0-0.05)
Absolute Neuts (auto) 12.2 H 10^3/uL
(1.4-6.5)
Absolute Monos (auto) 0.7 H 10^3/uL
(0.1-0.6)
Immature Gran % 4.9 H %
(0-0.5)
Neutrophils % 75.8 H %
(42.2-75.2)
Lymphocytes % 14.6 L %
(20.5-51.1)
PT 23.2 H Sec
(11.4-14.6)
APTT 53.9 H Sec
(23.4-35.0)
pH 6.92 L*
(7.35-7.45)
pCO2 45 H mmHg
(32-35)
pO2 137 H mmHg
(83-108)
HCO3 9.2 L* mmol/L
(21-28)
ABG O2 Sat (Measured) 99.6 H %
(94-98)
Carbon Dioxide 8 L* mmol/L
(22-30)
BUN 32 H mg/dl
(7-17)
Creatinine 1.6 H mg/dL
(0.6-1.0)
Glucose 149 H mg/dl
(70-99)
Lactic Acid 14.5 H* mmol/L
(0.7-2.0)
Calcium 7.8 L mg/dl
(8.4-10.2)
AST 1329 H* U/L
(14-36)
ALT 599 H* U/L
(0-35)
Alkaline Phosphatase 149 H U/L
(38-126)
Troponin I 0.493 H* ng/ml
Total Protein 5.1 L g/dl
(6.3-8.2)
Albumin 3.1 L g/dl
(3.5-5.0)
02/09/25 10:55
02/09/25 10:55
Vital Signs
Initial and Last Documented VS:
Initial Vital Signs
Pulse Ox
92
02/09/25 10:37
Last Documented Vital Signs
Temp Pulse Resp BP Pulse Ox
100.4 F H 84 20 103/50 99
02/10/25 11:13 02/10/25 12:11 02/10/25 12:11 02/10/25 12:11 02/10/25 12:12
MDM/Problems Addressed
MDM/Problems Addressed:
Pt evaluated immediately upon arrival. Based on initial CXR, ETT advanced 2 cm. Pt started on fentanyl infusion for sedation. Shortly afterwards, patient given ativan and vecuronium due to increased respiratory rate and inability to bring in set
tidal volume, along with need to obtain imaging studies.
Fentanyl infusion started for sedation. Levophed infusion started subsequently due to hypotension.
In addition, bedside cardiac US performed by cardiology () - no sig. pericardial effusion noted along with hyperactive cardiac wall motion. Recommends obtaining CT to evaluate for potential retroperitoneal hemorrhage or other potential
etiology.
CT head and CT chest/abdomen/pelvis report reviewed and discussed with family, at bedside.
Patient will be admitted to ICU for further evaluation and treatment.
Critical care statement: A total of 60 minutes of critical care time was provided for this patient. This includes management of unstable vital signs, evaluation of the patient at bedside, reviewing the patient's pertinent medical records, discussion
with consultants, review of old EKGs and review of pertinent medical records. This time with separate from time utilized to perform the aforementioned documented procedures
*Pulse Oximetry
SaO2: 100
Oxygen Mode of Delivery: Ventilator
Patient hypoxic: no
*Critical Care Note
Total Time (30-74mins, 75-104mins- exclusive of procedures): 60 min
ED Attending Note
-
Portions of this chart may have been created with voice recognition software.� Occasional wrong word or��sound alike� substitutions may have occurred due to the inherent limitations of voice recognition software.
Discharge Plan
Departure
Patient Disposition: Admit
Date of Disposition: 02/09/25
Time of Disposition: 12:32
Admit to: ICU
Presentation/result/management discussed w/ accepting MD/DO: Hospitalist
Discharge Problem:
Cardiopulmonary arrest, Fracture, rib, Hematoma
Interventions
Interventions:
*General Assessment Last Done: 02/09/25 10:37
*Neglect/Abuse Screening Last Done: 02/09/25 10:37
[facility] Risk Assessment Tool Last Done: 02/09/25 10:37
*Risk Screen - Suicide (C-SSRS) Last Done: 02/09/25 10:37
*Nursing Disposition Last Done: 02/09/25 15:01
ED- Cardiac Assessment Last Done: 02/09/25 10:37
ED- Pulmonary Assessment Last Done: 02/09/25 10:37
Discharge Date and Time
Discharge Date/Time: 02/09/25 15:00
[2025-02-09 11:06] LABS: HCO3 9.2 mmol/L (21-28)
[2025-02-09 11:15] LABS: INR 2.04; PT 23.2 Sec (11.4-14.6)
[2025-02-09 11:16] LABS: APTT 53.9 Sec (23.4-35.0)
[2025-02-09 11:24] LABS: Albumin 3.1 g/dl (3.5-5.0); Alkaline Phosphatase 149 U/L (38-126); Blood Urea Nitrogen 32 mg/dl (7-17); Calcium 7.8 mg/dl (8.4-10.2); Carbon Dioxide 8 mmol/L (22-30); Chloride 107 mmol/L (98-107); Glucose 149 mg/dl (70-99); Potassium 4.8 mmol/L (3.5-5.1); Sodium 137 mmol/L (135-145); Total Protein 5.1 g/dl (6.3-8.2); eGFR 30.83
[2025-02-09 11:28] LABS: Troponin I 0.493 ng/ml
[2025-02-09 11:29] LABS: Hematocrit 26.9 % (37.0-47.0); Hemoglobin 8.0 g/dL (12.0-16.0); Mean Corp Hgb Conc. 29.7 g/dL (33.0-37.0); Mean Corpuscular Volume 102.7 fL (81.0-99.0); Nucleated Red Blood Cells % 0.2 %; Red Cell Dist. Width 12.9 % (11.5-14.5)
[2025-02-09 11:47] LABS: ALT (SGPT) 599 U/L (0-35); AST (SGOT) 1329 U/L (14-36)
[2025-02-09] MEDS: LEVOPHED 250 IV ×3 (12:12→23:45)
[2025-02-09] MEDS: ATIVAN 2 MG IV (12:13)
[2025-02-09] MEDS: NORCURON 10 MG IV (12:14)
[2025-02-09] MEDS: SUBLIMAZE 100 IV (12:17)
--- NOTE | 2025-02-09 12:38 | HPS.HSE ---
Family Physician
-
Family Physician: Arely Flanagan
Chief Complaint
-
OSH cardiac arrest and intubation following witnessed syncope
History of Present Illness
I could not get any information from the patient is intubated
Information gathered by chart review and speaking with the ER staff.
HPI
89F DC'd on 02/07 from CTS service status post TAVR (02/06: Dr Estrada) procedure with pacemaker placement afterwards secondary to complete heart block last week, discharged home 3 days ago,
- seen at ER
- Patient is intubated , sedated on Fentanyl gtt at time of my evalaution
- Pressure support with NE gtt
- ER consulted ICU and Pyrotechnician
HPI from ER attd noed for
- witnessed syncopal episode at home
- Per paramedics, patient was walking with her walker with her daughter at her side, when she 'collapsed' onto the floor. - 911 was called and police arrived at scene.
- Shock advised for which patient received 1 shock by police officer crime prevention who arrived at scene first.
- When paramedics arrived, patient was unresponsive but with pulse.
- Patient was intubated at scene for airway protection and also provided with multiple push dose of epinephrine secondary to hypotension.
- Upon arrival, patient is somnolent and unresponsive, with patient being bagged actively. Unable to obtain any further information.
Pt currently intubated on fentanyl gtt.
NEG HCT
T chest/abd/pel with some nonspecific findings, including likely rib fracture with subsequent hematoma from CPR, as well as findings suspicious for lead misplacement
No neurological changes or response - Any signs of neurologic recovery?
Uncertain the original rhythm was
Pt is currently being paced
Medical History
Past Medical History
Past Medical History: Reports Other
Additional Past Medical History:
Hypothyroidism
Asthma
Anxiety / Depression
Hiatal Hernia / GERD
OAB
Heart Murmur / Aortic Stenosis (mild - 2021)
Past Surgical History: Reports Other
Additional Past Surgical History:
Bilateral TKA
Bilateral SUKHWINDER
Partial Hysterectomy
Cholecystectomy
Social History
Tobacco: Non-smoker
Alcohol: Occasional
Drug: None
Family History
Family History: Not pertinent
Allergies / Home Medications
Allergies reflects when Allergies were last updated in [employer].
Home Medications with original date entered in [employer]
Allergy/Medication List:
Allergies
Allergy/AdvReac Type Severity Reaction Status Date / Time
No Known Allergies Allergy Verified 07/08/23 20:24
Home Medications
sertraline 50 mg tablet 50 mg PO DAILY 01/06/19
celecoxib 200 mg capsule (Celebrex) 200 mg PO DAILY 02/09/23
levothyroxine 75 mcg tablet 75 mcg PO DAILY 07/09/23
pantoprazole 40 mg granules delayed-release for susp in packet (Protonix) 40 mg PO DAILY 07/09/23
rosuvastatin 5 mg tablet 5 mg PO DAILY 07/09/23
Review of Systems
-
Unable to obtain full review of systems at this time due to: Patient Intubation
Physical Exam
Vital Signs
Vital Signs
Pulse Pulse Ox
85 100
02/09/25 10:41 02/09/25 11:05
Physical Exam
General: Intubated
Laboratory Results
-
02/09/25 10:55
02/09/25 10:55
Laboratory Results
PT 23.2 Sec (11.4-14.6) H 02/09/25 10:55
INR 2.04 02/09/25 10:55
APTT 53.9 Sec (23.4-35.0) H 02/09/25 10:55
pH 6.92 (7.35-7.45) L* 02/09/25 10:47
pCO2 45 mmHg (32-35) H 02/09/25 10:47
pO2 137 mmHg (83-108) H 02/09/25 10:47
HCO3 9.2 mmol/L (21-28) L* 02/09/25 10:47
Total Bilirubin 1.0 mg/dl (0.2-1.3) 02/09/25 10:55
AST 1329 U/L (14-36) H* 02/09/25 10:55
ALT 599 U/L (0-35) H* 02/09/25 10:55
Alkaline Phosphatase 149 U/L (38-126) H 02/09/25 10:55
Troponin I 0.493 ng/ml H* 02/09/25 10:55
Data Reviewed
-
CT Scan: Report Reviewed by me
Impression/Plan
-
02/09/25
11:41 02/09/25
12:05 02/09/25
12:15
Blood pressure 111/56 75/43 101/52
02/09/25
12:25 02/09/25
12:35
Blood pressure 105/52 102/54
Pulse Resp BP Pulse Ox
74 14 102/54 100
02/09/25 12:35 02/09/25 12:35 02/09/25 12:35 02/09/25 11:05
Laboratory Tests
02/07/25 02/09/25
04:55 10:55
WBC 10.9 H 16.1 H
Hgb 10.2 L 8.0 L D
MCV 102.7 H
Plt Count 129 L
ABG
02/09/25 02/09/25
10:47 10:55
INR 2.04
pH 6.92 L*
pCO2 45 H
pO2 137 H
HCO3 9.2 L*
02/07/25 02/09/25
04:55 10:55
Carbon Dioxide 28 8 L*
Creatinine 0.7 1.6 H
eGFR > 60.00 30.83
Calcium 7.8 L
AST 1329 H*
ALT 599 H*
Alkaline Phosphatase 149 H
Troponin I 0.493 H*
Tzl-N-[id number] Pept 2009
HCT
No acute intracranial abnormality noted.
CT Chest/abd/pel W Iv Cont
1. There are displaced anterior right third and fourth ribs fractures with nondisplaced anterior right fifth sixth and seventh rib fractures. There are lucencies in the anterior right first and second ribs although this may be streak artifact. There
is an underlying heterogeneous and mildly hyperdense opacity throughout the right upper chest measuring approximately 8.4 x 5.3 cm which extends towards the right hilum which demonstrate mass effect on the right upper lobe. There is associated
partial collapse of the right upper lobe. This is suspicious for a hematoma.
2. There is a nondisplaced lower sternal body fracture.
3. Changes of prior transcatheter aortic valve replacement and left chest wall pacemaker. The tip of the ventricular lead appears to extend slightly through the inner ventricular septum and into the left ventricle.
4. Small/moderate mildly dense pericardial effusion suspicious for hemopericardium.
5. There is a new hypodensity throughout the superior medial right hepatic lobe extending into the caudate lobe which has the appearance of a liver laceration. A liver infarction is considered less likely.
6. Endotracheal tube tip is at the level of the ana. There is debris within the bilateral mainstem bronchi extending into the bilateral lower lobes which may be sequelae of prior aspiration. There are additional scattered tree-in-bud opacities
throughout the lungs, most pronounced in the lower lobes which may be infectious/inflammatory and represent pneumonitis.
7. There is a new small focus of gas which appears to be present within the anterior aspect of the minor fissure concerning for a tiny pneumothorax.
8. Small volume fluid in the pelvis.
Last admission to [facility] surgery : 02/06/25 - 02/07/25
Procedures:
1. TAVR (02/06/25)
2. Dual-chamber permanent pacemaker (02/06/25)
Primary Diagnosis:
1. Severe aortic stenosis
Secondary Diagnoses:
1. Pre-existing RBBB, 1AVB
2. Mild coronary artery disease
3. Hypertension
4. Hyperlipidemia
5. Asthma
6. Depression
7. Hiatal hernia
8. Overactive bladder
9. OA
10. GERD
11. Candidal esophagitis (02/2019)
-
ASSESSMENT & PLAN
89F DC'd on 02/07 from CTS service status post TAVR (02/06: Dr Estrada) procedure with pacemaker placement afterwards secondary to complete heart block last week, discharged home 3 days ago,
- Patient is intubated , sedated on Fentanyl gtt at time of my evaluation
- Pressure support with NE gtt
- ER consulted ICU and Pyrotechnician
Acute VDRF
Witnessed syncope
OSH cardiac arrest - CPR and intubated at the scene
Uncertain the original rhythm - currently being paced
No neurological changes or response with CPR - no signs of neurologic recovery yet
02/06 S/P #23 Bazzi KRYSTAL S3 Resilia TAVR via RCFA approach. Procedure complicated by CHB. Patient was taken for PPM yesterday afternoon.
- PPM implant
- NE gtt
- IVF
- ICU and Card consulted - appreciated
- Neuro consult - in anticipation of future neurological recover ? KRISSY : of note - family is wondering about it and for further level of care decision
Associated SHERWIN
Metabolic acidosis
Shocked liver
- Severe metabolic acidosis
- IVF
- Renal consult
Coagulopathy due to shock liver
HLD
CHB after TAVR - s/p PPM.AV block/RBBB
Known HX
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
Hiatal Hernia
Hypothyroidism
Anxiety / Depression
Case dw 2 daughters at bed side - given the Rib Fx s/p CPR - they optd for CHEMICAL CODE c only - no chest compression
Witnessed by Employee Communications Specialist and ER attd
DVT Px: SCD
ICU
Total Critical Care Time__65 ___ minutes. I was immediately available to the patient and staff. I personally examined, reviewed labs, diagnostic images/reports, interpretations, treatment plans, discussed patient care with other providers and
family or caregivers (if patient is unable to make decisions), entered orders as appropriate and documented the medical record.
--- NOTE | 2025-02-09 13:44 | W.CON.NEPH ---
Consultation
-
Date/Time Consultation Requested: 02/09/2025 1 PM
Date/Time Consultation Performed: 02/09/2025 1 PM
Requesting Provider: Dr. Garcia
Performing Provider: Dr. Leslie
Reason for Consultation: Cardiac arrest
Medical History
-
Chief Complaint: Cardiac arrest
History of Present Illness:
This is an 89-year-old female who had recent TAVR on 02/06/2025 which required pacemaker placement given complete heart block. She was discharged on 02/07/2025. Today she was walking with her daughter and began to feel progressively weaker and
weaker. Ultimately she then collapsed on the floor. Her daughter called 911 and EMS arrived. She received CPR as well as defibrillation. She had return of circulation and was brought to the emergency room. She was placed on Levophed drip for
hypotension. She was intubated in the field and remains on the ventilator at 40% O2. CT scan was performed of the chest abdomen pelvis with contrast which had found several rib fractures as well as a lung hematoma, possible hemopericardium, liver
laceration. She is noted to be in shock liver with acute kidney injury creatinine 1.6 from baseline 0.7. She had severe lactic acidosis.
Past Medical History
Hypothyroidism
Asthma
Anxiety / Depression
Hiatal Hernia / GERD
OAB
Heart Murmur / Aortic Stenosis (mild - 2020)
TAVR, pacemaker
Bilateral TKA
Bilateral SUKHWINDER
Partial Hysterectomy
Cholecystectomy
Social History
Tobacco: Non-Smoker
Alcohol: Occasional
Family History
Family History: Not Pertinent
Allergies / Home Medications
Allergy/AdvReac Type Severity Reaction Status Date / Time
No Known Allergies Allergy Verified 02/06/25 07:35
�Medication �Instructions �Recorded �Confirmed �Type
sertraline 50 mg tablet 50 mg PO DAILY Mental 01/06/19 02/09/25 History
Health/Anxiety
rosuvastatin 5 mg tablet 2.5 mg PO Q48H High Cholesterol 07/09/23 02/09/25 History
celecoxib 200 mg capsule 200 mg PO DAILY arthritis 01/22/25 02/09/25 History
cholecalciferol (vitamin D3) 25 25 mcg PO DAILY Supplement 01/22/25 02/09/25 History
mcg (1,000 unit) capsule (Vitamin
D3)
levothyroxine 50 mcg tablet 75 mcg PO DAILY Thyroid 01/22/25 02/09/25 History
jivqgwlqnlwx-tylhuxkn-xixnjv tablet 1 tab PO DAILY Supplement 01/22/25 02/09/25 History
vitamins A,C,J-xdoh-wrhsty 2,148 1 tab PO BID Supplement 01/22/25 02/09/25 History
mcg-113 mg-45 mg-17.4 mg tablet
(PreserVision AREDS)
Fish Oil 1 cap PO QPM Supplement 01/29/25 02/09/25 History
Tylenol PM 2 tab PO HS Sleep 01/29/25 02/09/25 History
Zinc 20 mg PO DAILY Supplement 02/06/25 02/09/25 History
aspirin 81 mg tablet 81 mg PO DAILY Blood Clot 02/06/25 02/09/25 History
Prevention/Tx
calcium carbonate 500 mg PO DAILY Supplement 02/06/25 02/09/25 History
pantoprazole 20 mg tablet,delayed 20 mg PO DAILY Gastrointestinal 02/06/25 02/09/25 History
release (Protonix) Issue
Review of Systems
-
Unable to obtain full review of systems at this time due to: Patient Intubation
History Source: Family
All other systems: Negative unless noted
Physical Exam
Vital Signs
Vital Signs
Pulse Resp BP Pulse Ox
74 14 102/54 100
02/09/25 12:35 02/09/25 12:35 02/09/25 12:35 02/09/25 11:05
Lab Results
WBC 16.1 10^3/uL (4.8-10.8) H 02/09/25 10:55
RBC 2.62 10^6/uL (4.20-5.40) L 02/09/25 10:55
Hgb 8.0 g/dL (12.0-16.0) L D 02/09/25 10:55
Hct 26.9 % (37.0-47.0) L 02/09/25 10:55
Plt Count 10^3/uL (130-400) 02/09/25 10:55
Sodium 137 mmol/L (135-145) 02/09/25 10:55
Potassium 4.8 mmol/L (3.5-5.1) 02/09/25 10:55
Chloride 107 mmol/L (98-107) 02/09/25 10:55
Carbon Dioxide 8 mmol/L (22-30) L* 02/09/25 10:55
BUN 32 mg/dl (7-17) H 02/09/25 10:55
Creatinine 1.6 mg/dL (0.6-1.0) H 02/09/25 10:55
eGFR 30.83 02/09/25 10:55
Glucose 149 mg/dl (70-99) H 02/09/25 10:55
Calcium 7.8 mg/dl (8.4-10.2) L 02/09/25 10:55
Epj-Z-Iwlhtaguouy Pept 2010 pg/ml 02/09/25 10:55
Albumin 3.1 g/dl (3.5-5.0) L 02/09/25 10:55
Laboratory Tests
02/07/25 02/09/25 02/09/25
04:55 10:55 11:59
Hgb 10.2 L
Carbon Dioxide 28
Creatinine 0.7
Lactic Acid 14.5 H*
AST 1329 H*
ALT 599 H*
Troponin I 0.493 H*
CT chest abdomen pelvis with IV contrast 02/09/2025
IMPRESSION:
1. There are displaced anterior right third and fourth ribs fractures with nondisplaced anterior right fifth sixth and seventh rib fractures. There are lucencies in the anterior right first and second ribs although this may be streak artifact. There
is an underlying heterogeneous and mildly hyperdense opacity throughout the right upper chest measuring approximately 8.4 x 5.3 cm which extends towards the right hilum which demonstrate mass effect on the right upper lobe. There is associated
partial collapse of the right upper lobe. This is suspicious for a hematoma.
2. There is a nondisplaced lower sternal body fracture.
3. Changes of prior transcatheter aortic valve replacement and left chest wall pacemaker. The tip of the ventricular lead appears to extend slightly through the inner ventricular septum and into the left ventricle.
4. Small/moderate mildly dense pericardial effusion suspicious for hemopericardium.
5. There is a new hypodensity throughout the superior medial right hepatic lobe extending into the caudate lobe which has the appearance of a liver laceration. A liver infarction is considered less likely.
6. Endotracheal tube tip is at the level of the ana. There is debris within the bilateral mainstem bronchi extending into the bilateral lower lobes which may be sequelae of prior aspiration. There are additional scattered tree-in-bud opacities
throughout the lungs, most pronounced in the lower lobes which may be infectious/inflammatory and represent pneumonitis.
7. There is a new small focus of gas which appears to be present within the anterior aspect of the minor fissure concerning for a tiny pneumothorax.
8. Small volume fluid in the pelvis.
Physical Exam
Patient is intubated. Oropharynx was clear and dry. Neck was supple with trachea midline and no thyromegaly. Heart was regular rate and rhythm without rubs. Lower extremities without edema. Lungs were clear to auscultation bilaterally and with
normal excursion. Abdomen was soft, nontender, with normal active bowel sounds, and no hepatosplenomegaly. Skin was without rash and with normal turgor. Scattered ecchymoses noted lower abdomen
Data Reviewed
-
Radiology: Image Personally Visualized and interpreted (Chest x-ray 02/09/2025 by reading no acute disease)
CT Scan: Report Reviewed by me
Medical Tests (Nuc Med, Echo etc): Image Personally Visualized and interpreted (EKG 02/09/2025 by reading sinus rhythm first-degree block right bundle branch block left anterior fascicular block)
Labs: Labs Reviewed by me
Old Records: Reviewed
Assessment/Plan
-
Assessment
SHERWIN
Zmq-ot-vzfpchku cardiac arrest
Metabolic acidosis
Lactic acidosis
Shock liver
TAVR
Pacemaker
Plan
Keep mean arterial pressure greater than 65
Follow BMP
Trend lactate
2 ampules bicarbonate given ABG pH 6.92
Follow LFTs
Harris catheter
I discussed with her family. She may require dialysis given cardiogenic shock and administration of IV contrast. This is something that they need to decide whether or not they would except knowing that it may be permanent
They are considering whether or not to convert her to DNR status. They understand that she is very sick and that recovery will be protracted.
Critical care time spent 40 minutes
[2025-02-09 15:08] LABS: Glucose - Point of Care 155 mg/dl (70-99)
--- NOTE | 2025-02-09 15:40 | W.PN.UPDATE ---
Update Note
Progress Note Update
Met with patient's daughter Gary at bedside. We went over patient's current clinical condition. We discussed various CODE STATUS options including full code, DNR/DNI, comfort care measures only. We also talked about in-depth difference between
various CODE STATUS. Patient's daughter opted to proceed with DNR CODE STATUS at this point. Patient currently needing pressor support, off sedation without any neurological response. We talked about possibility of some residual effect of earlier
use fentanyl and paralytics. We discussed about possible need for dialysis, daughter is currently undecided about dialysis. We discussed about central line placement and arterial line placement for pressor infusion and invasive monitoring of blood
pressure which patient's daughter agreed to and consented.
- CODE STATUS switched to DNR.
Additional 35 minutes of critical care time spent
--- NOTE | 2025-02-09 15:42 | CON.INTV ---
Consultation
Consultation Request
Date/Time Consultation Requested: 02/09/2025
Date/Time Consultation Performed: 02/09/2025
Medical History
-
Chief Complaint: Cardiac arrest
History of Present Illness:
Patient is currently intubated and unresponsive. History obtained from discussion with patient's daughter at bedside as well as review of medical records and discussion with other healthcare team members. Patient reportedly had a recent TAVR
procedure performed for aortic stenosis along with complete heart block requiring pacemaker placement. She was discharged about 3 days ago. Patient had a witnessed syncopal episode at home while she was walking with her walker when she collapsed
on the floor. 911 was called, CPR was initiated and patient reportedly received 1 shock by the [employer] who arrived at the scene first. Subsequently paramedics arrived and patient was unresponsive but had a pulse. Patient was intubated at
scene for airway protection and also provided with multiple push doses of epinephrine secondary to hypotension.
In the emergency room patient was unresponsive and was being bagged actively. Reportedly was asynchronous with ventilator and received some sedation. Additional workup showed severe metabolic acidosis with significantly elevated lactate, pH of
6.8. Patient had imaging performed which was suggestive of intrathoracic hematoma mostly in the right upper lobe likely related to CPR, rib fractures, questionable collection around liver. Patient was evaluated by cardiology service had an
echocardiogram which was suggestive of a well-seated aortic valve and a small pericardial effusion without tamponade. Patient subsequently was admitted to the ICU and supervisor costuming consultation was requested for further input.
Past History
ED Past Medical History: Asthma, Hypercholesterolemia and Other (arthritis)
ED Past Surgical History: Appendectomy, Cholecystectomy and Orthopedic (Bilateral knee replacements, bilateral hip replacements)
Social History
Tobacco: Non-smoker
Alcohol: None
Drug: None
Personal: Single
Living: with family (Lives with daughter)
Allergies / Home Medications
Allergies
Allergy/AdvReac Type Severity Reaction Status Date / Time
No Known Allergies Allergy Verified 02/06/25 07:35
Home Medications
�Medication �Instructions �Recorded �Confirmed �Last Taken �Type
sertraline 50 mg tablet 50 mg PO DAILY Mental 01/06/19 02/09/25 02/05/25 08:00 History
Health/Anxiety
rosuvastatin 5 mg tablet 2.5 mg PO Q48H High Cholesterol 07/09/23 02/09/25 02/05/25 08:00 History
celecoxib 200 mg capsule 200 mg PO DAILY arthritis 01/22/25 02/09/25 01/30/25 08:00 History
cholecalciferol (vitamin D3) 25 25 mcg PO DAILY Supplement 01/22/25 02/09/25 02/05/25 08:00 History
mcg (1,000 unit) capsule (Vitamin
D3)
levothyroxine 50 mcg tablet 75 mcg PO DAILY Thyroid 01/22/25 02/09/25 02/06/25 07:00 History
zpffjzchpctj-pnxnecvn-fodmak tablet 1 tab PO DAILY Supplement 01/22/25 02/09/25 02/05/25 08:00 History
vitamins A,C,W-wgbo-ruxemw 2,148 1 tab PO BID Supplement 01/22/25 02/09/25 02/05/25 08:00 History
mcg-113 mg-45 mg-17.4 mg tablet
(PreserVision AREDS)
Fish Oil 1 cap PO QPM Supplement 01/29/25 02/09/25 01/30/25 23:00 History
Tylenol PM 2 tab PO HS Sleep 01/29/25 02/09/25 02/05/25 23:00 History
Zinc 20 mg PO DAILY Supplement 02/06/25 02/09/25 02/05/25 08:00 History
aspirin 81 mg tablet 81 mg PO DAILY Blood Clot 02/06/25 02/09/25 02/06/25 07:00 History
Prevention/Tx
calcium carbonate 500 mg PO DAILY Supplement 02/06/25 02/09/25 02/04/25 08:00 History
pantoprazole 20 mg tablet,delayed 20 mg PO DAILY Gastrointestinal 02/06/25 02/09/25 02/05/25 08:00 History
release (Protonix) Issue
Review of Systems
-
Unable to Obtain full review of systems at this time due to: Patient Intubation
Vitals / Labs / Diagnostic Testing
Vital Signs
Temp Pulse Resp BP Pulse Ox
90.7 F L 64 20 93/56 97
02/09/25 15:07 02/09/25 15:07 02/09/25 15:07 02/09/25 15:07 02/09/25 15:10
Laboratory Results
02/09/25 02/09/25
10:47 10:55
PT 23.2 H
INR 2.04
APTT 53.9 H
pH 6.92 L*
pCO2 45 H
pO2 137 H
HCO3 9.2 L*
O2 Delivery Level
Diagnostic Testing:
Physical Exam
-
HEENT: Normocephalic
Cardiovascular: S1/S2
Respiratory: Clear and Rhonchi
GI: Soft
Neurology: Other (Unresponsive)
Skin: Warm
General: Comfortable
Assessment
-
#1. Cardiac arrest.
- ?Etiology. Arrhythmias in differential diagnosis. Debris noted in both mainstem bronchi suggestive of aspiration. Likely sequelae of CPR as patient was walking prior to arrest.
- Reportedly patient received shock when [employer] police arrived initially, unknown rhythm. Subsequent rhythm noted to be PEA.
- Cardiology service on case. Stat echo suggestive of hemopericardium but without tamponade. Well-seated aortic valve and normal ejection fraction.
- Continue pressor support, currently on Levophed, target MAP 65 or above
- CT chest with contrast without evidence of pulmonary embolism.
- Serial troponin. Continue telemetry monitoring
- Target normothermia
- Stat bedside EEG to evaluate for any nonconvulsive seizures
- Serial ABG, lactate
#2. Ventilator dependent respiratory failure, in the setting of cardiac arrest
- Continue volume assist-control, increased respiratory rate to 20 in view of metabolic acidosis
- Serial ABG, lung protective ventilation target tidal volume 6 mL/kg body weight
- Follow-up chest x-ray in a.m.
#3. Acute encephalopathy, concern for anoxic injury
- Stay off all sedation, patient reportedly received small dose of paralytics and fentanyl earlier
- During my evaluation, pupils mid dilated without response. No gag, patient not breathing above the vent. Unresponsive to sternal rub
- Stat EEG to evaluate for any nonconvulsive seizures
#4. Severe metabolic acidosis, due to cardiac arrest
- pH 6.92 initially, subsequent 7.29
- Continue IV fluids, currently receiving normal saline infusion after 2 bicarb pushes, serial lactate gradually improving
- Continue pressors as needed to keep MAP above 65
#5. Aspiration pneumonia.
- Suspect consolidative changes are aspiration as a result of CPR
- Continue IV Unasyn
- Pressors as needed
#6. Small apical pneumothorax.
- Suspect traumatic related to CPR
- Follow-up chest x-ray as pneumothorax is at risk of expansion with positive pressure ventilation
#7. Multiple rib fractures, intrathoracic right upper lobe hematoma, hemopericardium, questionable bowel hematoma collection around liver
- All this finding appeared to be traumatic related to CPR
- At risk of internal bleeding
#8. Thrombocytopenia with coagulopathy and acute liver injury
- Suspect changes related to cardiac arrest and developing multiorgan dysfunction
#9. Acute kidney injury
- Suspect developing ATN with recent cardiac arrest
- Nephrology service on case, s/p bicarb pushes, continue normal saline infusion
- Serial lab work, patient might need renal replacement therapy, family undecided if HD to be pursued, ongoing discussion
#10. H/o Aortic stenosis
- Status post recent TAVR, cardiology service on case, echo reassuring with well-seated valve.
Other medical diagnoses:
- Hiatal hernia
- Hypothyroidism
- Reported history of gastric outlet obstruction
- Anxiety/depression
DVT prophylaxis. Subcu heparin or Lovenox not indicated in view of developing coagulopathy
GI prophylaxis. IV Protonix
Prognosis is poor. Updated daughter at bedside.
Critical Care time 68 mins -- The patient is admitted for acute critical illness for the treatment of vital organ failure and/or prevention of further life-threatening conditions. Total care includes time spent in review of history, physical exam,
medications, hemodynamic/ventilator parameters, laboratory data, imaging and discussion with house staff, pharmacy, respiratory therapy, atomic physics professor, and nursing.
Data:
CT C/A/P 01/2025: 1. There are displaced anterior right third and fourth ribs fractures with nondisplaced anterior right fifth sixth and seventh rib fractures. There are lucencies in the anterior right first and second ribs although this may be
streak artifact. There is an underlying heterogeneous and mildly hyperdense opacity throughout the right upper chest measuring approximately 8.4 x 5.3 cm which extends towards the right hilum which demonstrate mass effect on the right upper lobe.
There is associated partial collapse of the right upper lobe. This is suspicious for a hematoma.
2. There is a nondisplaced lower sternal body fracture.
3. Changes of prior transcatheter aortic valve replacement and left chest wall pacemaker. The tip of the ventricular lead appears to extend slightly through the inner ventricular septum and into the left ventricle.
4. Small/moderate mildly dense pericardial effusion suspicious for hemopericardium.
5. There is a new hypodensity throughout the superior medial right hepatic lobe extending into the caudate lobe which has the appearance of a liver laceration. A liver infarction is considered less likely.
6. Endotracheal tube tip is at the level of the ana. There is debris within the bilateral mainstem bronchi extending into the bilateral lower lobes which may be sequelae of prior aspiration. There are additional scattered tree-in-bud opacities
throughout the lungs, most pronounced in the lower lobes which may be infectious/inflammatory and represent pneumonitis.
7. There is a new small focus of gas which appears to be present within the anterior aspect of the minor fissure concerning for a tiny pneumothorax.
8. Small volume fluid in the pelvis.
CXR 01/2025: Endotracheal tube tip projects over the midthoracic trachea, approximately 4.4 cm above the ana.
New confluent airspace opacity projecting over the right upper lung which likely represents partial collapse, possibly secondary to mucous plugging. Consider bronchoscopy for further evaluation.
ECHO 01/2025: 1. Ejection fraction is greater than 75% by visual assessment. Left ventricular cavity size is 2.70 cm which is small in size.
2. Right ventricular size and systolic function are within normal limits. Pacer wire noted in the right heart.
3. Well-seated TAVR with peak/mean gradients of 9/4 mmHg; trace aortic regurgitation.
4. Mild tricuspid regurgitation. Estimated pulmonary artery pressure of 23 mmHg assuming a right atrial pressure of 8 mmHg.
5. A small to moderate-sized pericardial effusion (more moderate in size anteriorly in the subcostal views, and small posteriorly). There does not appear to be evidence suggestive of hemodynamic compromise.
6. Compared to a prior transthoracic echocardiogram study from 02/07/2025, a pericardial effusion is now noted.
TAVR and PPI 01/2025
LHC and RHC 01/2025: 1. Right dominant circulation with luminal irregularities and 10-20% lesions in the proximal and mid LAD, a 20% lesion in the proximal ramus and luminal irregularities in the RCA.
2. Normal filling pressures (PCWP = 11 mmHg at 56.2 kg).
3. Severe aortic valve stenosis on echocardiography.
4. Normal cardiac performance parameters (cardiac index = 1.92 L/min/m�, AVO2 difference = 4.46 volume%, cardiac power output = 0.67 W, Sowmya = 2.67).
5. Severely elevated SVR (2482 dynes*seconds*cm^-5).
[2025-02-09 15:45] LABS: Hematocrit 28.4 % (37.0-47.0); Hemoglobin 8.9 g/dL (12.0-16.0); Mean Corp Hgb Conc. 31.3 g/dL (33.0-37.0); Mean Corpuscular Volume 99.0 fL (81.0-99.0); Platelet Count 72 10^3/uL (130-400); Red Cell Dist. Width 12.8 % (11.5-14.5)
[2025-02-09] MEDS: SODIUM BICARBONATE 100 MEQ IV (15:47)
[2025-02-09] MEDS: NSS 1000 IV ×2 (15:47→23:46)
[2025-02-09] MEDS: REFRESH CELLUVISC GEL 1 DROPS OPHTH ×2 (15:47→22:40)
[2025-02-09 15:50] LABS: Blood Urea Nitrogen 36 mg/dl (7-17); Calcium 8.2 mg/dl (8.4-10.2); Carbon Dioxide 9 mmol/L (22-30); Chloride 105 mmol/L (98-107); Glucose 148 mg/dl (70-99); Potassium 4.9 mmol/L (3.5-5.1); Sodium 135 mmol/L (135-145); eGFR 25.08
--- NOTE | 2025-02-09 16:38 | OR.RPT ---
Operative Report
Operative Report
Right Radial Arterial catheter placement
Informed consent was obtained from patient's daughter at bedside. Patient in shock on pressor therapy and needs invasive blood pressure monitoring.
Bedside ultrasound was used to confirm patency of right radial artery. Under sterile condition area was subsequently cleaned and a drape was placed. Under direct ultrasound visualization,, radial artery was cannulated. Once blood was noted in the
chamber guidewire was advanced. Arterial catheter was subsequently advanced over the guidewire, and then guidewire was removed. Pressure tubing was subsequently attached to the catheter and arterial waveform was noted on the monitor. Subsequently
a dressing was placed.
Complications: None
Blood loss: < 1 ml
Date of service: 02/09/2025
--- NOTE | 2025-02-09 16:39 | OR.RPT ---
Operative Report
Operative Report
Right Femoral Central Line placement
Indication: Shock, need central access for pressors
Consent obtained from: Patient's daughter
'Patient has right upper lobe are hematoma and also small apical pneumothoroax, so Right IJ was not attempted. Pacemaker placed on the left side'
Time-out was performed and patient was placed in supine position. Ultrasound was used to assess patency of Right Femoral vein. Under sterile conditions area was cleaned with chlorhexidine and then a full body drape was placed. 3 mL of local
anesthesia with lidocaine was injected. Under real-time ultrasound guidance, long axis view, the needle was inserted and vein was punctured, once blood was aspirated, syringe was removed and guidewire was advanced which did not meet any resistance.
Subsequently needle was withdrawn and guidewire was left in place. Ultrasound was used again to confirm presence of guidewire inside the vein lumen. A small eden was placed at the skin and a dilator was advanced to about 50% of its length.
Dilator was removed and central venous catheter was advanced over guidewire and subsequently guidewire was removed. All 3 ports were capped and they were easy to flush and were withdrawing blood without any resistance. Central line was sutured to
the skin and dressing was applied.
Complications: None
Blood loss: Minimal
Time spent: 35 min
Date of service: 02/09/2025
[2025-02-09 16:47] LABS: B.E. -11.5 mmol/L; O2 Saturation % 98.4 % (94-98); PCO2 29 mmHg (32-35); PO2 93 mmHg (83-108)
[2025-02-09 16:49] LABS: HCO3 13.9 mmol/L (21-28)
[2025-02-09] MEDS: UNASYN IV (17:14)
[2025-02-09] MEDS: PROTONIX IV 40 MG IV (17:23)
[2025-02-09] MEDS: NSS (PRESERVATIVE FREE) 10 ML IV (17:23)
--- NOTE | 2025-02-09 17:45 | PTCARENOTE ---
Updated assessment ongoing, await xray team for reevaluation of chest, ogt placement. Follow up labs and ongoing vital sign trends. [employer] team in and out at bedside, line placement, assessment review, and follow up plan of cares with family.
Cardiology team at bedside with family. Update events, plan of cares on ongoing concerns. Critical care team in and out at bedside. Follow up drip titration and neurologic status. No noted events recorded in ICU but monitor in place. Follow up call
to xray team. Supportive cares and emotional support for family.
--- NOTE | 2025-02-09 18:26 | PTCARENOTE ---
Follow up trends with dynamics ax consultant at bedside and with family. Continue to monitor neurologic assessment trends. Follow up chest xray. Repeat labs as ordered. Nursing in and out at bedside. Emotional support and supportive cares ongoing.
[2025-02-09] MEDS: SUBLIMAZE 50 MCG IV (19:48)
[2025-02-09 21:43] LABS: Hematocrit 24.5 % (37.0-47.0); Hemoglobin 8.2 g/dL (12.0-16.0); Mean Corp Hgb Conc. 33.5 g/dL (33.0-37.0); Mean Corpuscular Volume 91.1 fL (81.0-99.0); Platelet Count 74 10^3/uL (130-400); Red Cell Dist. Width 12.8 % (11.5-14.5)
[2025-02-09 21:53] LABS: Blood Urea Nitrogen 44 mg/dl (7-17); Calcium 7.6 mg/dl (8.4-10.2); Carbon Dioxide 14 mmol/L (22-30); Chloride 104 mmol/L (98-107); Estimated Creatinine Clearance 16 ml/min; Glucose 175 mg/dl (70-99); Potassium 4.3 mmol/L (3.5-5.1); Sodium 134 mmol/L (135-145); eGFR 23.59
[2025-02-09 21:56] LABS: Troponin I 0.969 ng/ml
[2025-02-09] MEDS: NSS 250 IV (22:31)
[2025-02-09] MEDS: VERSED 2 MG IV (22:40)
--- NOTE | 2025-02-09 22:44 | PTCARENOTE ---
Addendum entered by Catina Christina RN 02/09/25 22:56:
minimal UOP noted, ICU RATE MARKER aware - 250ml NS bolus ordered and initiated. levo gtt continues
Original Note:
pt continues with myoclonic jerking, sedation remains off - 2mg versed ordered and given per ICU RATE MARKER. daughter at bedside. care ongoing.
[2025-02-09] MEDS: NOVOLOG FLEXPEN-LOW RESISTANCE 1 UNITS SC (23:44)
[2025-02-09 23:47] LABS: Glucose - Point of Care 180 mg/dl (70-99)
[2025-02-10] VITALS (28 sets, daily range): BP systolic 84–136; BP diastolic 39–85; BMI 25.6
--- NOTE | 2025-02-10 01:56 | W.PN.UPDATE ---
Update Note
Progress Note Update
Patient having severe myoclonus jerks for greater than 30 minutes causing dyssynchrony with vent attempted midazolam dose (No improvement). Emilyell reporting seizure burden of 7 to 10%. Plan is to trial 1000mg of levetiracetam with possible
intermittent dosing of midazolam.
[2025-02-10] MEDS: KEPPRA 1000 MG IV (02:06)
[2025-02-10 02:23] LABS: B.E. -7.2 mmol/L; HCO3 16.2 mmol/L (21-28); O2 Saturation % 100.0 % (94-98); PCO2 25 mmHg (32-35); PO2 170 mmHg (83-108)
[2025-02-10 02:30] LABS: Hematocrit 22.9 % (37.0-47.0); Hemoglobin 7.9 g/dL (12.0-16.0); Mean Corp Hgb Conc. 34.5 g/dL (33.0-37.0); Mean Corpuscular Volume 89.1 fL (81.0-99.0); Platelet Count 87 10^3/uL (130-400); Red Cell Dist. Width 12.9 % (11.5-14.5)
--- NOTE | 2025-02-10 02:30 | PTCARENOTE ---
severe myoclonic jerking continues, ICU DEFECT REPAIRER GLASSWARE to bedside. prudencio ordered and given - see MAR. daughter updated at bedside. AM labs sent.
[2025-02-10 02:37] LABS: INR 1.73; PT 20.4 Sec (11.4-14.6)
[2025-02-10 02:42] LABS: Albumin 3.2 g/dl (3.5-5.0); Alkaline Phosphatase 165 U/L (38-126); Blood Urea Nitrogen 48 mg/dl (7-17); Calcium 7.8 mg/dl (8.4-10.2); Carbon Dioxide 18 mmol/L (22-30); Chloride 108 mmol/L (98-107); Estimated Creatinine Clearance 15 ml/min; Glucose 144 mg/dl (70-99); Potassium 4.8 mmol/L (3.5-5.1); Sodium 136 mmol/L (135-145); Total Protein 5.2 g/dl (6.3-8.2); eGFR 21.04
[2025-02-10 03:06] LABS: Troponin I 1.230 ng/ml
[2025-02-10 03:30] LABS: ALT (SGPT) 1135 U/L (0-35)
[2025-02-10 04:19] LABS: AST (SGOT) 2550 U/L (14-36)
[2025-02-10] MEDS: UNASYN IV (04:31)
[2025-02-10] MEDS: TYLENOL ORAL SOLUTION 650 MG TUBE ×2 (04:31→10:45)
[2025-02-10] MEDS: NOVOLOG FLEXPEN-LOW RESISTANCE SC ×4 (06:30→23:30)
[2025-02-10] MEDS: NSS (PRESERVATIVE FREE) 10 ML IV (07:08)
[2025-02-10] MEDS: PROTONIX IV 40 MG IV (07:08)
--- NOTE | 2025-02-10 07:08 | PTCARENOTE ---
GOL notified about patient at this time.
--- NOTE | 2025-02-10 07:44 | PTCARENOTE ---
Await update with critical care team. Await rounds with General Scrap Worker team and cardiology. Follow up with hospitalist plan of critical care. Noted, jerking like motions with face, eyes and arms at times. Any stimuli causes response. Stops when stimuli
minimized. Update with respiratory cares team. Very brief oral and skin cares completed. Room environment, dark, quiet with minimal stimuli. Daughter at bedside await MD updates. Family to arrive from out of town today. Emotional and supportive
cares ongoing.
--- NOTE | 2025-02-10 07:50 | CON.CAR ---
Consultation
Consultation Request
Date/Time Consultation Requested: 02/09/2025; 14:43
Date/Time Consultation Performed: 02/10/2025; 07:51
Requesting Provider: Cricket Garcia M.D.
Performing Provider: Brain Kirkland D.O.
Reason for Consultation: Cardiac Arrest, history of s/p TAVR, CHB s/p PPM.
Medical History
-
Chief Complaint: Cardiac Arrest.
History of Present Illness:
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
hospital cardiac arrest. The patient's post operative TAVR course was uncomplicated after placement of the PPM. She was discharged POD #1. History is obtained from the patient's daughter. The patient reportedly felt poorly on POD #2 but this was
attributed to being post op from the TAVR and PPM. The daughter says that the patient complained of mild chest discomfort around the area of her PPM, but this was short lived and resolved. Her primary complaint was fatigue. The patient reportedly
slept a great deal on POD #2 into POD #3. On POD #3, the patient was reportedly lethargic. Her daughter states that she began slurring speech but had normal muscle strength in her cranial nerves (smiled/raised eyebrows, etc). The patient became
unresponsive and 911 was called. EMS was dispatched and the patient's daughter started CPR. She estimates that she performed CPR for 10-15 minutes before EMS arrived. EMS took over BLS. AED delivered a shock and the patient was intubated in the
field.
In the emergency room, the patient was stabilized hemodynamically. Initial investigation revealed severe lactic acidosis. She began breathing over the vent but made no purposeful movement off of sedation. Bedside US showed normal LV/RV function
without obvious regional wall motion abnormality or pericardial effusion. CT head/chest/abdomen/pelvis was performed, showing displaced rib fractures and a right upper chest density consistent with hematoma with some mass affect on the RUL. She
was admitted to the ICU for further management.
The patient had an arterial line and central line placed. EEG was ordered to evaluate for seizure activity. Overnight, the patient began having severe myoclonic jerks treated with midazolam. This had minimal effect. Levetiracetam has been
started for seizure activity. Of note, the patient's weight is up 9 kg from discharge baseline. Patient is febrile to 38.1 this morning. She has required norepinephrine gtt @ [ ] mcg/kg/min for blood pressure support. Empiric
ampicillin/sulbactam has been started.
DATA:
CT Chest/Abdomen/Pelvis, 02/09/2025:
IMPRESSION:
1. There are displaced anterior right third and fourth ribs fractures with nondisplaced anterior right fifth sixth and seventh rib fractures. There are lucencies in the anterior right first and second ribs although this may be streak artifact. There
is an underlying heterogeneous and mildly hyperdense opacity throughout the right upper chest measuring approximately 8.4 x 5.3 cm which extends towards the right hilum which demonstrate mass effect on the right upper lobe. There is associated
partial collapse of the right upper lobe. This is suspicious for a hematoma.
2. There is a nondisplaced lower sternal body fracture.
3. Changes of prior transcatheter aortic valve replacement and left chest wall pacemaker. The tip of the ventricular lead appears to extend slightly through the inner ventricular septum and into the left ventricle.
4. Small/moderate mildly dense pericardial effusion suspicious for hemopericardium.
5. There is a new hypodensity throughout the superior medial right hepatic lobe extending into the caudate lobe which has the appearance of a liver laceration. A liver infarction is considered less likely.
6. Endotracheal tube tip is at the level of the ana. There is debris within the bilateral mainstem bronchi extending into the bilateral lower lobes which may be sequelae of prior aspiration. There are additional scattered tree-in-bud opacities
throughout the lungs, most pronounced in the lower lobes which may be infectious/inflammatory and represent pneumonitis.
7. There is a new small focus of gas which appears to be present within the anterior aspect of the minor fissure concerning for a tiny pneumothorax.
8. Small volume fluid in the pelvis.
CT Head, 02/09/2025:
IMPRESSION:
No acute intracranial abnormality noted.
TTE, 02/09/2025:
SUMMARY
1. Ejection fraction is greater than 75% by visual assessment. Left ventricular cavity size is 2.70 cm which is small in size.
2. Right ventricular size and systolic function are within normal limits. Pacer wire noted in the right heart.
3. Well-seated TAVR with peak/mean gradients of 9/4 mmHg; trace aortic regurgitation.
4. Mild tricuspid regurgitation. Estimated pulmonary artery pressure of 23 mmHg assuming a right atrial pressure of 8 mmHg.
5. A small to moderate-sized pericardial effusion (more moderate in size anteriorly in the subcostal views, and small posteriorly). There does not appear to be evidence suggestive of hemodynamic compromise.
6. Compared to a prior transthoracic echocardiogram study from 02/07/2025, a pericardial effusion is now noted.
Past Medical History
Past Medical History: Arrhythmias (RBBB/1st degree AVB, CHB post TAVR.), Hypercholesterolemia, Hyperthyroidism, Hypothyroidism and Valvular Disease (Severe .)
Past Surgical History: Cardiac (#23 Bazzi KRYSTAL S3 TAVR (02/06/2025); Medtronic PPM (02/06/2025).)
Social History
Tobacco: Non-Smoker
Alcohol: None
Drug: None
Living: With Family
Employment: Retired
Family History
Family History: Reviewed & Not Pertinent
Allergies / Home Medications
Allergy/AdvReac Type Severity Reaction Status Date / Time
No Known Allergies Allergy Verified 02/06/25 07:35
�Medication �Instructions �Recorded �Confirmed �Type
sertraline 50 mg tablet 50 mg PO DAILY Mental 01/06/19 02/09/25 History
Health/Anxiety
rosuvastatin 5 mg tablet 2.5 mg PO Q48H High Cholesterol 07/09/23 02/09/25 History
celecoxib 200 mg capsule 200 mg PO DAILY arthritis 01/22/25 02/09/25 History
cholecalciferol (vitamin D3) 25 25 mcg PO DAILY Supplement 01/22/25 02/09/25 History
mcg (1,000 unit) capsule (Vitamin
D3)
levothyroxine 50 mcg tablet 75 mcg PO DAILY Thyroid 01/22/25 02/09/25 History
beyjutqfbewa-rirsnmbu-nvteek tablet 1 tab PO DAILY Supplement 01/22/25 02/09/25 History
vitamins A,C,G-rbcw-lmczym 2,148 1 tab PO BID Supplement 01/22/25 02/09/25 History
mcg-113 mg-45 mg-17.4 mg tablet
(PreserVision AREDS)
Fish Oil 1 cap PO QPM Supplement 01/29/25 02/09/25 History
Tylenol PM 2 tab PO HS Sleep 01/29/25 02/09/25 History
Zinc 20 mg PO DAILY Supplement 02/06/25 02/09/25 History
aspirin 81 mg tablet 81 mg PO DAILY Blood Clot 02/06/25 02/09/25 History
Prevention/Tx
calcium carbonate 500 mg PO DAILY Supplement 02/06/25 02/09/25 History
pantoprazole 20 mg tablet,delayed 20 mg PO DAILY Gastrointestinal 02/06/25 02/09/25 History
release (Protonix) Issue
Review of Systems
-
Unable to obtain full review of systems at this time due to: Patient Intubation
Physical Exam
Vital Signs
Temp Pulse Resp BP Pulse Ox
37.8 C 97 24 136/67 99
02/10/25 07:31 02/10/25 07:31 02/10/25 07:31 02/10/25 07:31 02/10/25 07:32
Lab Results
02/10/25 02:16
02/10/25 02:16
Troponin I 1.230 ng/ml H* D 02/10/25 02:16
Pie-T-Sxccuiuwbqt Pept 2010 pg/ml 02/09/25 10:55
Physical Exam
General: Well Developed, Well Nourished, No Apparent Distress, Comfortable and Intubated
HEENT: Normocephalic, Anicteric, Moist Mucous Membranes and Other (ET tube in place.)
Respiratory: Clear and Non Labored Respirations
Cardiac: S1/S2 and Regular Rhythm
Breast: Deferred by me
GI: Soft, Non Tender, Non Distended and Normal Bowel Sounds
Rectal: Deferred by Provider
Musculoskeletal: No Clubbing, No Cyanosis and No Edema
Skin: Warm and Dry
Neuro: Other (Intubated/sedated, minimal sedation.)
Hematologic/Lymphatic: No Lymphadenopathy
Psych: Other (Obtunded.)
Impression / Plan
-
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
cardiac arrest of unknown cause.
#Cardiac Arrest
-Acute. Unclear cause/mechanism.
-Currently requiring norepinephrine.
-Echo shows normal LV function, normal valve function, mild/moderate pericardial effusion without evidence of tamponade.
-Electrolytes are not in cardiac arrest range.
-RUL hematoma is causing mass affect, but normal oxygenation.
-Continue supportive care.
-Monitor for neurologic recovery.
-Prognosis is poor.
#Severe
-Chronic, progressive.
-S/P #23 Bazzi KRYSTAL S3 Resilia THV on 02/06/2025.
-Bilateral femoral access sites are C/D/I. No evidence or RPB on CT.
-Normal valve function on TTE.
#1st degree AV block/RBBB/intermittent CHB post TAVR
-Chronic.
-S/P PPM post TAVR.
-PPM interrogation today.
#RUL hematoma
-Acute, unclear source.
-Likely related to CPR as there has been no recent instrumentation of this area.
-Hbg at discharge was 10.2, 8.0 at admission.
-Maintaining oxygen saturation.
#FEN/Renal
-Acute, gapped metabolic acidosis.
-Lactic acid 14.5 --> 11.0 --> 6.1 --> 4.2. Delta delta is normal.
#Non-MS troponin elevation
-Acute, related to cardiac arrest.
-Troponin 0.496 --> 0.969 --> 1.230.
-EKG is non-ischemic.
#Dispo
-ICU status.
-DNR.
Critical Care Time = 55 minutes.
Data Reviewed
-
EKG: Tracing Personally Visualized and interpreted, Report Reviewed by me, Discussed with Physician and Discussed with Family
Radiology: Image Personally Visualized and interpreted, Report Reviewed by me, Discussed with Physician and Discussed with Family
CT Scan: Image Personally Visualized and interpreted, Report Reviewed by me, Discussed with Physician and Discussed with Family
Medical Tests (Nuc Med, Echo etc): Image Personally Visualized and interpreted, Report Reviewed by me, Discussed with Physician and Discussed with Family
Labs: Labs Reviewed by me, Discussed with Physician and Discussed with Family
Old Records: Reviewed
--- NOTE | 2025-02-10 08:35 | W.RAPID.EEG ---
Rapid EEG
-
Results:
IMPRESSION:
No evidence of status epilepticus
Recording Information:
Diagnostic Recording Time: 16:44:00 (1004 minutes)
Recording 1: [email or web address]
Start Time: Feb 09, 2025 15:37 PM End Time: Feb 10, 2025 08:21 AM
Recording Technique: This EEG was obtained using a 10 lead, 8 channel system positioned circumferentially without any parasagittal coverage (rapid EEG). Computer selected EEG is reviewed as well as background features and all clinically significant
events. Clarity algorithm utilized and implemented to provide analysis of underlying activity and seizure detection used to facilitate reading. ICD-10 Code OD43U68
Clinical History: ALANNA ORTIZ is a 89 year old Cardiac Arrest patient undergoing EEG to screen for non-convulsive status epilepticus.
--- NOTE | 2025-02-10 09:18 | CON.NEURO ---
Addendum entered and electronically signed by Oh Rojas MD 02/10/25 21:07:
The patient was seen and examined today along with the nurse practitioner Angelina Dempsey, and I agree with her assessment and management plan. Given below is my addendum.
The patient is an 89 years old female with a past medical history of TAVR with pacemaker placement afterwards secondary to complete heart block last week, discharged home 02/07, presents to [facility] on 02/09/2025 secondary to a cardiac arrest. There
is a concern for anoxic brain injury secondary to cardiac arrest. The patient was witnessed to have myoclonic jerks. The duration of the CPR was at least 15 minutes as per patient's daughter. Currently the patient is intubated.
Head CT 02/09/2025: No acute intracranial abnormality noted.
EEG 02/10/2025: No evidence of status epilepticus.
On neurologic examination, the pupils are sluggishly reactive to light and a weak corneal reflex is present bilaterally. The patient does not respond to painful stimulus.
I had a detailed discussion with the patient's daughter regarding the assessment and management plan and she was told about guarded to poor prognosis due to cardiac arrest and possible anoxic brain injury. The patient's daughter verbalized
understanding of our discussion.
Original Note:
Neuro Assessment/Plan
Assessment
Patient is an 89 year old female status post TAVR procedure with pacemaker placement afterwards secondary to complete heart block last week, discharged home 02/07, presents to [facility] on 02/09/2025 secondary to witnessed syncopal episode at home.
Head CT 02/09/2025: No acute intracranial abnormality noted.
EEG 02/10/2025: No evidence of status epilepticus
Plan
Impression: unresponsiveness and myoclonus secondary to anoxic brain injury, prognosis poor.
-GOC conversations ongoing
-may discontinue EEG, no evidence of status epilepticus, myoclonus secondary to anoxic brain injury
-supportive care
All questions encouraged and answered, plan of care discussed with Dr. Rojas, hospitalist, nurse and family
Consultation
Order
Date of Consultation: 02/10/25
Requesting Provider: Hospitalist/ Dr. Garcia
Reason for Consult: s/p cardiac arrest
Subjective/Objective
Subjective Data
Date of Service: February 10, 2025
Patient is an 89 year old female status post TAVR procedure with pacemaker placement afterwards secondary to complete heart block last week, discharged home 02/07, presents to [facility] on 02/09/2025 secondary to witnessed syncopal episode at home. Per
paramedics, patient was walking with her walker with her daughter at her side, when she 'collapsed' onto the floor. 911 was called and police arrived at scene. Shock advised for which patient received 1 shock by security police who arrived at scene
first. When paramedics arrived, patient was unresponsive but with pulse. Patient was intubated at scene for airway protection and also provided with multiple push dose of epinephrine secondary to hypotension. Upon arrival, patient was somnolent
and unresponsive. Neurology now consulted to evaluate mental status and myoclonic jerks. EEG showed no evidence of status epilepticus. Head CT showed no acute intracranial abnormalities.
Objective Data
Vital Signs
Temp Pulse Resp BP Pulse Ox
100.1 F 90 29 129/85 99
02/10/25 07:31 02/10/25 09:00 02/10/25 09:00 02/10/25 08:00 02/10/25 09:00
Lab Results
02/10/25 02:16
02/10/25 02:16
PT 20.4 Sec (11.4-14.6) H 02/10/25 02:16
INR 1.73 02/10/25 02:16
APTT 53.9 Sec (23.4-35.0) H 02/09/25 10:55
Sodium 136 mmol/L (135-145) 02/10/25 02:16
Potassium 4.8 mmol/L (3.5-5.1) 02/10/25 02:16
BUN 48 mg/dl (7-17) H 02/10/25 02:16
Glucose 144 mg/dl (70-99) H 02/10/25 02:16
Calcium 7.8 mg/dl (8.4-10.2) L 02/10/25 02:16
Teg-Z-Bbhtqwghmci Pept 2010 pg/ml 02/09/25 10:55
Patient Allergies
No Known Allergies Allergy (Verified 02/06/25 07:35)
Physical Exam
-
Physical exam limited. Patient is intubated and unresponsive. Sluggish pupillary reflex, positive corneal and gag reflex. Does not withdrawl to pain. Myoclonus noted with facial twitched and full body jerking movements.
General: Appears Stated Age
Neck: Unable to Assess
Psych: Unable to Assess
Extended Neurological Exam
Mood & Affect: Unable to Assess
Attention Span & Concentration: Unresponsive to Verbal Stimuli and Unresponsive to Physical Stimuli
Memory: Unable to Assess
Speech: Unable to Assess
Cranial Nerve II: Left Eye: Unable to Assess
Cranial Nerve II: Right Eye: Unable to Assess
Cranial Nerve VIII: Hearing: Unable to Assess
Data Reviewed
-
CT Head: Report Reviewed and Image Reviewed
Medical Test Reports: Report Reviewed
Labs: Report Reviewed
Reviewed with: Physician
Old Records: Summarized
Medications
-
Active Medications
Generic Name Dose Route Start Last Admin
Trade Name Freq PRN Reason Stop Dose Admin
Acetaminophen 650 mg 02/10/25 04:24 02/10/25 04:31
Acetaminophen (Oral Solution) 650 Mg/20.3 Ml Cup TUBE 03/10/25 04:22 650 mg
Q4HPRN PRN Administration
temp>100.4
Bisacodyl 10 mg 02/09/25 14:43
Bisacodyl 10 Mg Rectal Suppository RECTAL 03/09/25 14:42
[id number] PRN
constipation
Carboxymethylcellulose Sodium 1 drops 02/09/25 11:15 02/09/25 22:40
Carboxymethylcellulose Ophth Gel (Celluvisc) Droperette OPHTH 03/09/25 11:14 1 drops
Q12H KIP Administration
Fentanyl Citrate 50 mcg 02/09/25 11:03 02/09/25 19:48
Fentanyl (50 Mcg/Ml) 100 Mcg/2 Ml Ampul IV 02/23/25 11:02 50 mcg
[id number] PRN Administration
see protocol
Protocol
Norepinephrine Bitartrate 4 mg in 250 mls @ 0 mls/hr 02/09/25 11:15 02/09/25 23:45
Levophed IV 250 mls
PER PROTOCOL KIP Administration
Protocol
Per Protocol
Sodium Chloride 1,000 mls @ 100 mls/hr 02/09/25 14:43 02/09/25 23:46
Nss IV 1,000 mls
.Q10H KIP Administration
Ampicillin Sodium/Sulbactam 120 mls @ 240 mls/hr 02/09/25 16:30 02/10/25 04:31
Sodium 3 gm/ Sodium Chloride IV 120 mls
Q12H KIP Administration
Insulin Aspart 0 units 02/10/25 00:00 02/10/25 06:30
Insulin Aspart Low Resistance 300 Units/3 Ml Pen.Injctr SC 03/10/25 00:00 Not Given
Q6 KIP
Protocol
Pantoprazole Sodium 40 mg 02/09/25 17:00 02/10/25 07:08
Pantoprazole Sodium 40 Mg/10 Ml Vial IV 03/09/25 16:59 40 mg
DAILY KIP Administration
Polyethylene Glycol 17 grams 02/09/25 14:43
Polyethylene Glycol Powder 17 Grams Packet PO 03/09/25 14:42
DAILYPRN PRN
constipation
Senna/Docusate Sodium 1 tablet 02/09/25 14:43
Docusate W/Senna (Vicki-Colace) Tablet PO 03/09/25 14:42
BIDPRN PRN
constipation
Sodium Chloride 0 flush 02/09/25 17:00
Sodium Chloride 0.9% (Flush) Syringe IV 03/09/25 16:59
PER PROTOCOL KIP
Sodium Chloride 10 ml 02/09/25 18:00 02/10/25 07:08
Sodium Chloride 0.9% (Preservative Free) 10 Ml Vial IV 03/09/25 17:59 10 ml
DAILY KIP Administration
Home Medications
�Medication �Instructions �Recorded
sertraline 50 mg tablet 50 mg PO DAILY Mental 01/06/19
Health/Anxiety
rosuvastatin 5 mg tablet 2.5 mg PO Q48H High Cholesterol 07/09/23
celecoxib 200 mg capsule 200 mg PO DAILY arthritis 01/22/25
cholecalciferol (vitamin D3) 25 25 mcg PO DAILY Supplement 01/22/25
mcg (1,000 unit) capsule (Vitamin
D3)
levothyroxine 50 mcg tablet 75 mcg PO DAILY Thyroid 01/22/25
ahkcpykydwps-yecpibig-rrawjg tablet 1 tab PO DAILY Supplement 01/22/25
vitamins A,C,Y-rfvz-jvgzax 2,148 1 tab PO BID Supplement 01/22/25
mcg-113 mg-45 mg-17.4 mg tablet
(PreserVision AREDS)
Fish Oil 1 cap PO QPM Supplement 01/29/25
Tylenol PM 2 tab PO HS Sleep 01/29/25
Zinc 20 mg PO DAILY Supplement 02/06/25
aspirin 81 mg tablet 81 mg PO DAILY Blood Clot 02/06/25
Prevention/Tx
calcium carbonate 500 mg PO DAILY Supplement 02/06/25
pantoprazole 20 mg tablet,delayed 20 mg PO DAILY Gastrointestinal 02/06/25
release (Protonix) Issue
Past History
Past History
ED Past Medical History: Asthma, Hypercholesterolemia and Other (arthritis)
ED Past Surgical History: Appendectomy, Cholecystectomy and Orthopedic (Bilateral knee replacements, bilateral hip replacements)
Family/Social History
Tobacco: Non-smoker
Alcohol: None
Drug: None
Personal: Single
Living: with family (Lives with daughter)
--- NOTE | 2025-02-10 09:19 | PTCARENOTE ---
Material Chaser team at bedside. Sat with family to review plan of cares, critical care concerns and ongoing plan for management of care from this point. Family arriving from out of town today. Daughter discussing focus on comfort and discussing end of
life plan of cares. Conversation ongoing. Supportive cares and emotional support ongoing. Hospitalist team at bedside will continue with goals of care.
[2025-02-10] MEDS: NSS IV (10:16)
[2025-02-10] MEDS: DIPRIVAN 100 IV ×2 (10:45→19:56)
[2025-02-10] MEDS: REFRESH CELLUVISC GEL 1 DROPS OPHTH ×2 (10:45→19:57)
--- NOTE | 2025-02-10 11:05 | W.PN.INTV ---
Today's Communication / Plan
Recommendations
Continue support
Start fentanyl and propofol for comfort as patient is having frequent myoclonic jerks
Continue Levophed-follow renal function and electrolytes
Gentle IV fluids
Continue antibiotics for aspiration pneumonia
Continue mechanical ventilation without change
Prognosis is poor
Assessment
-
#1. Cardiac arrest.
- ?Etiology---suspect ventricular Arrhythmias in differential diagnosis.
- Debris noted in both mainstem bronchi suggestive of aspiration. Likely sequelae of CPR as patient was walking prior to arrest.
- Reportedly patient received shock when state highway police officer arrived initially, unknown rhythm. Subsequent rhythm noted to be PEA.
- Cardiology service on case--> echo suggestive of hemopericardium but without tamponade. Well-seated aortic valve and normal ejection fraction.
- Continue pressor support, currently on Levophed, target MAP 65 or above-- currently 6mcg/min
- CT chest with contrast without evidence of pulmonary embolism.
- Serial troponin. Continue hemodynamic monitoring.
- Target normothermia
- Continue EEG monitoring-neurology has been consulted
-Lactic acid remains slightly elevated suspect due to liver failure/dysfunction/ischemic injury. Transaminases greater than 1000
#2. Ventilator dependent respiratory failure, in the setting of cardiac arrest
-ABG (02/10/2025)-7.42/25/170
- Continue volume assist-control--without change.
- Serial ABG, lung protective ventilation target tidal volume 6 mL/kg body weight
- Chest x-ray 02/10/2025: Reviewed, shows small bilateral pleural effusions. Patchy parenchymal opacity both lower lobes. Left greater than right.
#3. Acute encephalopathy, concern for anoxic injury
-Ongoing myoclonic jerks suggestive of severe anoxic brain injury. Patient appears uncomfortable.
-Discussed with neurology, discussed with family member at the bedside-prognosis is poor. Waiting for her son to come from [place] later today.
-In the meantime we will attempt to keep patient as comfortable as possible propofol and fentanyl will be added.
- Patient did receive a dose of Keppra-Will defer further therapy to neurology.
-Today 02/10/2025:, pupils mid dilated without response. No gag, patient not breathing above the vent. Unresponsive to sternal rub
- [place]ibel monitoring ongoing.
#4. Severe metabolic acidosis, due to cardiac arrest/acute kidney injury.
- Persistent nongap metabolic acidosis.
- Patient did receive some bicarbonate.
- Will cap IV Fluids
- Continue pressors as needed to keep MAP above 65-vasopressor requirements improving.
#5. Aspiration pneumonia.
- Suspect consolidative changes are aspiration as a result of CPR
- Continue IV Unasyn
- Pressors as needed
#6. Small apical pneumothorax.
- Suspect traumatic related to CPR--not evident on chest x-ray 02/10/2025.
- Follow-up chest x-ray as pneumothorax is at risk of expansion with positive pressure ventilation-Daily chest x-ray or as needed.
#7. Multiple rib fractures, intrathoracic right upper lobe hematoma, hemopericardium, questionable bowel hematoma collection around liver
- All this finding appeared to be traumatic related to CPR
- At risk of internal bleeding
#8. Thrombocytopenia with coagulopathy/anemia and acute liver injury-->> transaminases greater than 1000.
- Suspect changes related to cardiac arrest and developing multiorgan dysfunction
#9. Acute kidney injury
- Suspect developing ATN with recent cardiac arrest
- Nephrology service on case, s/p bicarb pushes, continue normal saline infusion
- Not a candidate for renal replacement therapy-discussed with family and they would not pursue.
#10. H/o Aortic stenosis
- Status post recent TAVR, cardiology service on case, echo reassuring with well-seated valve.
- Cardiology following.
Other medical diagnoses:
- Hiatal hernia
- Hypothyroidism
- Reported history of gastric outlet obstruction
- Anxiety/depression
DVT prophylaxis. Subcu heparin or Lovenox not indicated in view of developing coagulopathy
GI prophylaxis. IV Protonix
Prognosis is poor. Dr. Wagoner updated daughter at bedside 02/10/2025. Her son is coming from [place] today in the afternoon, if there is no improvement they are considering withdrawal of care.
-
Critical Care time 42 mins -- The patient is admitted for acute critical illness for the treatment of vital organ failure and/or prevention of further life-threatening conditions. Total care includes time spent in review of history, physical exam,
medications, hemodynamic/ventilator parameters, laboratory data, imaging and discussion with house staff, pharmacy, respiratory therapy, crew member, and nursing.
Data:
CT C/A/P 01/2025: 1. There are displaced anterior right third and fourth ribs fractures with nondisplaced anterior right fifth sixth and seventh rib fractures. There are lucencies in the anterior right first and second ribs although this may be
streak artifact. There is an underlying heterogeneous and mildly hyperdense opacity throughout the right upper chest measuring approximately 8.4 x 5.3 cm which extends towards the right hilum which demonstrate mass effect on the right upper lobe.
There is associated partial collapse of the right upper lobe. This is suspicious for a hematoma.
2. There is a nondisplaced lower sternal body fracture.
3. Changes of prior transcatheter aortic valve replacement and left chest wall pacemaker. The tip of the ventricular lead appears to extend slightly through the inner ventricular septum and into the left ventricle.
4. Small/moderate mildly dense pericardial effusion suspicious for hemopericardium.
5. There is a new hypodensity throughout the superior medial right hepatic lobe extending into the caudate lobe which has the appearance of a liver laceration. A liver infarction is considered less likely.
6. Endotracheal tube tip is at the level of the ana. There is debris within the bilateral mainstem bronchi extending into the bilateral lower lobes which may be sequelae of prior aspiration. There are additional scattered tree-in-bud opacities
throughout the lungs, most pronounced in the lower lobes which may be infectious/inflammatory and represent pneumonitis.
7. There is a new small focus of gas which appears to be present within the anterior aspect of the minor fissure concerning for a tiny pneumothorax.
8. Small volume fluid in the pelvis.
CXR 01/2025: Endotracheal tube tip projects over the midthoracic trachea, approximately 4.4 cm above the ana.
New confluent airspace opacity projecting over the right upper lung which likely represents partial collapse, possibly secondary to mucous plugging. Consider bronchoscopy for further evaluation.
ECHO 01/2025: 1. Ejection fraction is greater than 75% by visual assessment. Left ventricular cavity size is 2.70 cm which is small in size.
2. Right ventricular size and systolic function are within normal limits. Pacer wire noted in the right heart.
3. Well-seated TAVR with peak/mean gradients of 9/4 mmHg; trace aortic regurgitation.
4. Mild tricuspid regurgitation. Estimated pulmonary artery pressure of 23 mmHg assuming a right atrial pressure of 8 mmHg.
5. A small to moderate-sized pericardial effusion (more moderate in size anteriorly in the subcostal views, and small posteriorly). There does not appear to be evidence suggestive of hemodynamic compromise.
6. Compared to a prior transthoracic echocardiogram study from 02/07/2025, a pericardial effusion is now noted.
TAVR and PPI 01/2025
LHC and RHC 01/2025: 1. Right dominant circulation with luminal irregularities and 10-20% lesions in the proximal and mid LAD, a 20% lesion in the proximal ramus and luminal irregularities in the RCA.
2. Normal filling pressures (PCWP = 11 mmHg at 56.2 kg).
3. Severe aortic valve stenosis on echocardiography.
4. Normal cardiac performance parameters (cardiac index = 1.92 L/min/m�, AVO2 difference = 4.46 volume%, cardiac power output = 0.67 W, [place] = 2.67).
5. Severely elevated SVR (2482 dynes*seconds*cm^-5).
Subjective Dataa
Subjective Data
Date of Service:
Date of Service: February 10, 2025
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
Subjective:
Unresponsive, mechanical ventilation
Having myoclonic jerks.
Review of Systems
General: Unobtainable - Pat Unresp
Objective Data
Data Reviewed
Vital Signs / I&O / Oxygen:
Vital Signs
Temp Pulse Resp BP Pulse Ox
100.1 F 95 30 129/85 99
02/10/25 07:31 02/10/25 10:00 02/10/25 10:00 02/10/25 08:00 02/10/25 10:00
Intake and Output
02/09/25 02/10/25 02/11/25
06:59 06:59 06:59
Intake Total 2420 / 2520 460 / 460
Output Total 10
Balance 2405 / 2500 450 / 450
SaO2 [A/C] 99
SaO2 99
Physical Exam
General: Comfortable
HEENT: Normocephalic
Cardiovascular: S1-S2
Respiratory: Clear and ET Tube (No secretions)
GI: Soft and Non Distended
Neurology: Other (Unresponsive, having myoclonic jerks. Very irritable.)
Skin: Warm
Labs/Micro/Reports
Lab Data
02/10/25 02:16
02/10/25 02:16
Laboratory Results
02/09/25 02/09/25 02/09/25
10:47 10:55 16:41
PT 23.2 H
INR 2.04
APTT 53.9 H
pH 6.92 L* 7.29 L
pCO2 45 H 29 L
pO2 137 H 93
HCO3 9.2 L* 13.9 L*
O2 Delivery Level
02/10/25
02:16
PT 20.4 H
INR 1.73
APTT
pH 7.42
pCO2 25 L
pO2 170 H
HCO3 16.2 L
O2 Delivery Level
--- NOTE | 2025-02-10 11:20 | PTCARENOTE ---
Updates at bedside with patient daughter. Neurology teams, hospitalist teams in for complete assessment and work up. Follow up plan of cares, goals of cares and family/patient wishes discussed at length in morning rounds. Corrections Lieutenant team at bedside
thru morning with family and staff. Started on low dose sedation and pain medicine as per orders. Continue with drip titration and evaluation as per unit based protocols. Daughter at bedside awaiting family at this time. Supportive cares and
emotional support ongoing.
[2025-02-10 12:34] LABS: Glucose - Point of Care 121 mg/dl (70-99)
--- NOTE | 2025-02-10 13:05 | PTCARENOTE ---
Family continues at bedside. Updates thru shift, continue supportive cares and emotional support. Cardiology team at bedside update pacer history. Follow up plan of cares. Good overall response with sedation as ordered. Family verbalizing ' patient
appears peaceful and comfortable). Continue bedside nursing and hourly rounds. Assessment overall unchanged. Continue follow up.
--- NOTE | 2025-02-10 14:04 | W.PN.UPDATE ---
Update Note
Progress Note Update
I have independently evaluated the patient at the bedside. I have reviewed this case with the resident and agree with documentation unless otherwise specified. Discussed with the patient's daughter and neurology team while at the bedside.
Remains intubated without sedation this morning, CMV 20/450/50/5 with PEEP peak 26 and P Plateau 20. Requiring 4 mcg Levophed for hemodynamic adequacy. ROS limited by intubated status. Developed myoclonic jerks that have worsened without sedation
Intubated and sedated. Benign cardiac exam, lungs clear. Abdomen benign. No edema, no JVD, palpable pulses. Skin warm and dry. Harris in place with minimal straw-colored urine. Myoclonic jerks present on exam, diminished corneal reflex, pupils
sluggish to light, no withdrawal to pain.
#[id number] cardiac arrest. Unclear etiology, responded to defibrillation in the field, suspect VT/VF arrest of unclear cause. Concern for anoxic brain injury with development of myoclonic jerks that worsened without sedation. Remains on
vasopressors with MAP goal >65 mmHg. Trend troponin with serial ECGs, monitor telemetry. Trend ABG and lactic acid. Temperature goal of normothermia.
#Circulatory shock, SHERWIN, shock liver. Suspect cardiogenic etiology. Wean vasopressors as able with MAP goal >65 mmHg. Trend LFTs, BMP, and UOP closely. Poor candidate for dialysis
#VDRF. Secondary to cardiac arrest as above. Continue with daily chest x-rays and ABGs. Daily SAT and SBT per ICU. Wean FiO2
#Encephalopathy, concern for anoxic brain injury. Developed myoclonic jerks, likely related to prolonged period without cerebral perfusion. Overnight EEG without obvious seizure activity on prelim look. Neurology following, will need additional
24 to 48 hours to assess neurologic trajectory.
#Aspiration pneumonia. Likely occurred during cardiac arrest. Currently on IV Unasyn, will continue.
Diet -- NPO, consider tube feeds
DVT -- SQ heparin
CODE -- DNR
Dispo -- Grim prognosis with signs of anoxic brain injury and multiorgan failure following OOH cardiac arrest. Family is awaiting the patient's son to arrive from [place], near 4 PM this afternoon. Understanding of the patient's condition and very
low likelihood of recovery. Consideration for palliative extubation ongoing
Discussed with neurology and ICU
--- NOTE | 2025-02-10 14:48 | W.PN.HOSP.TC ---
Today's Communication/Plan
-
GOC with family
Assessment / Plan
Assessment / Plan
89yoF [facility] TAVR 02/06 w/ pacemaker placement sent home 3 days ago presenting from cardiac arrest with ROSC currently intubated off sedation without purposeful movements.
Pt is not alert, AFVSS off pressors. Pt exhibiting clonic motion, cerebell capturing no seizure activity. Off sedation. Evaluated by neuro. Daughter in room, son flying in from [place]. Lactic acidosis improving 4.2 from 14.5. SHERWIN worsening Cr 2.2
(1.6). LFTs increasing.
GOC with family.
#Acute VDRF
#Witnessed syncope
#OSH cardiac arrest - CPR and intubated at the scene
-Uncertain the original rhythm - currently being paced
- No neurological changes or response with CPR - no signs of neurologic recovery yet
- 02/06 S/P #23 Bazzi KRYSTAL S3 Resilia TAVR via RCFA approach. Procedure complicated by CHB. Patient was taken for PPM yesterday afternoon.
- PPM implant
- NE gtt
- IVF
- ICU and Card consulted - appreciated
- Neuro consult
#Associated SHERWIN
#Metabolic acidosis
#Shocked liver
- Severe metabolic acidosis
- IVF
- Renal consult
#Coagulopathy due to shock liver
#HLD
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
Code: DNR
Diet: NPO
Anticipated Discharge: 24 - 48 hours
Subjective/Interval History
-
Date of Service: February 10, 2025
Pt noncommunicative.
Objective Data
-
Labs:
Laboratory Results
02/10/25
02:16
PT 20.4 H
INR 1.73
AST 2550 H*
ALT 1135 H*
Vital Signs:
Vital Signs
Temp Pulse Resp BP Pulse Ox
100.4 F H 80 20 103/50 100
02/10/25 11:13 02/10/25 13:00 02/10/25 13:00 02/10/25 12:11 02/10/25 13:00
I&O
02/09/25 02/10/25 02/11/25
06:59 06:59 06:59
Intake Total 2420 / 2520 613.4 / 613.4
Output Total
Balance 2405 / 2500 593.4 / 593.4
Physical Exam
-
General: Intubated
HEENT: Normocephalic, Atraumatic, Moist Mucous Membranes and Other (intubated)
Respiratory: Clear to Auscultation
Cardiac: Regular Rhythm and S1/S2
GI: Soft and Nontender
Musculoskeletal: No Edema
Skin: Warm, Dry and IV Access / Catheter Site (central line and a line)
Neuro: Other (nonresponsive, no meaningful movements, clonic movement, poor pupillary response)
[2025-02-10 17:14] LABS: Triglycerides 89 mg/dl (10-149)
[2025-02-10] MEDS: LEVOPHED 250 IV (17:37)
--- NOTE | 2025-02-10 18:31 | PTCARENOTE ---
Remainder of friends and family at bedside. Daughter at bedside discussing end of life care and concerns. Teaching and supportive cares ongoing.
[2025-02-10] MEDS: HEPARIN 5000 UNITS SC (19:56)
--- NOTE | 2025-02-10 21:22 | PTCARENOTE ---
Received patient at start of shift, patient unresponsive to verbal or tactile stimuli, pupils fixed. Family at bedside, yesi visited at start of shift to provide support. Yesi reached out to patients latter-day and patient conveyancer currently at
bedside with family. SR on the monitor, 1st degree avb, prolonged QT. PP weak b/l, rp + b/l. No edema noted. Lung sounds diminished throughout, pox 98-100% on vent. A/c 450/20/50%/5, tolerating vent. OG tube at 55 to LIWS. Harris remains patent,
draining scant amount of yellow urine. Patient has R femoral triple lumen cath currently with Fentanyl, Propofol, Levophed. Patient with Right 20g a/c, right 20g wrist, and left a/c, all patent. Right radial a-line intact as well and functioning
properly. Call benton within reach of family. Support provided to family, will continue to monitor patient closely.
[2025-02-10 23:41] LABS: Glucose - Point of Care 127 mg/dl (70-99)
--- NOTE | 2025-02-10 23:48 | PTCARENOTE ---
Assessment overall unchanged. Patient tolerating vent. Dtr and grandson at bedside. Will continue to monitor.
[2025-02-11] VITALS (17 sets, daily range): BP systolic 104–126; BP diastolic 35–51
[2025-02-11] MEDS: LEVOPHED 250 IV ×3 (00:20→11:56)
[2025-02-11] MEDS: TYLENOL ORAL SOLUTION 650 MG TUBE ×2 (00:56→15:42)
[2025-02-11] MEDS: UNASYN IV (03:29)
--- NOTE | 2025-02-11 04:14 | PTCARENOTE ---
Daughter and grandson at bedside. Assessment unchanged. Hygiene provided, patient tolerated hygiene and repositioning at this time. Levo at 12mcg, map currently 65. Fent and prop remain same rate throughout shift thus far. Will continue to monitor
patient closely.
[2025-02-11] MEDS: NOVOLOG FLEXPEN-LOW RESISTANCE 1 UNITS SC (05:39)
[2025-02-11] MEDS: DIPRIVAN 100 IV ×2 (05:39→16:27)
[2025-02-11 05:50] LABS: Glucose - Point of Care 151 mg/dl (70-99)
--- NOTE | 2025-02-11 07:49 | W.PN.HOSP.TC ---
Today's Communication/Plan
-
GOC
Assessment / Plan
Assessment / Plan
89[address] [facility] TAVR 02/06 w/ pacemaker placement sent home 3 days ago presenting from cardiac arrest with ROSC currently intubated off sedation without purposeful movements.
Pt is not alert, AFVSS off pressors. Pt exhibiting clonic motion, cerebell capturing no seizure activity. Off sedation. Evaluated by neuro. Daughter in room, son flying in from [place]. Lactic acidosis improving 4.2 from 14.5. SHERWIN worsening Cr 2.2
(1.6). LFTs increasing.
GOC with family. Plan to withdrawal ventilator support today once family arrives.
#Acute VDRF
#Witnessed syncope
#OSH cardiac arrest - CPR and intubated at the scene
-Uncertain the original rhythm - currently being paced
- No neurological changes or response with CPR - no signs of neurologic recovery yet
- 02/06 S/P #23 Bazzi KRYSTAL S3 Resilia TAVR via RCFA approach. Procedure complicated by CHB. Patient was taken for PPM yesterday afternoon.
- PPM implant
- NE gtt
- IVF
- ICU and Card consulted - appreciated
- Neuro consult
#Associated SHERWIN
#Metabolic acidosis
#Shocked liver
- Severe metabolic acidosis
- IVF
- Renal consult
#Coagulopathy due to shock liver
#HLD
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
Code: DNR
Diet: NPO
Anticipated Discharge: Today
Subjective/Interval History
-
Date of Service: February 11, 2025
Plan to transition to comfort measures today once family is all here.
Objective Data
-
Labs:
Laboratory Results
02/11/25 02/11/25
06:00 06:59
WBC Cancelled Cancelled
Hgb Cancelled Cancelled
Hct Cancelled Cancelled
Plt Count Cancelled Cancelled
PT Cancelled
INR Cancelled
Sodium Cancelled Cancelled
Potassium Cancelled Cancelled
Chloride Cancelled Cancelled
Carbon Dioxide Cancelled Cancelled
BUN Cancelled Cancelled
Creatinine Cancelled Cancelled
Glucose Cancelled Cancelled
Calcium Cancelled Cancelled
Total Bilirubin Cancelled Cancelled
AST Cancelled Cancelled
ALT Cancelled Cancelled
Alkaline Phosphatase Cancelled Cancelled
Vital Signs:
Vital Signs
Temp Pulse Resp BP Pulse Ox
99.8 F 60 20 120/48 99
02/11/25 04:11 02/11/25 06:30 02/11/25 06:30 02/11/25 06:00 02/11/25 06:30
I&O
02/10/25 02/11/25 02/12/25
06:59 06:59 06:59
Intake Total 2420 / 2520 1333.7 / 1333.7
Output Total 15 80 / 80
Balance 2405 / 2500 1253.7 / 1253.7
Physical Exam
-
General: Intubated
HEENT: Normocephalic, Atraumatic and Moist Mucous Membranes
Respiratory: Clear to Auscultation (intubated on ventilator )
Cardiac: Regular Rhythm and S1/S2
GI: Nondistended
Musculoskeletal: No Edema
Skin: Warm and Dry
Neuro: Other (sedated; pupil reflex intact, no cough or gag reflex)
--- NOTE | 2025-02-11 08:01 | W.PN.CD ---
Today's Communication / Plan
-
Supportive care.
GOC discussion with family.
Impression / Plan
-
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
cardiac arrest of unknown cause.
#Cardiac Arrest
-Acute. Unclear cause/mechanism.
-Currently requiring norepinephrine.
-Echo shows normal LV function, normal valve function, mild/moderate pericardial effusion without evidence of tamponade.
-Electrolytes are not in cardiac arrest range.
-RUL hematoma is causing mass affect, but normal oxygenation.
-Continue supportive care.
-Monitor for neurologic recovery. Repeat CT head today?
-Prognosis is poor.
#Severe
-Chronic, progressive.
-S/P #23 Bazzi KRYSTAL S3 Resilia THV on 02/06/2025.
-Bilateral femoral access sites are C/D/I. No evidence or RPB on CT.
-Normal valve function on TTE.
#1st degree AV block/RBBB/intermittent CHB post TAVR
-Chronic.
-S/P PPM post TAVR.
-PPM interrogation today.
#RUL hematoma
-Acute, unclear source.
-Likely related to CPR as there has been no recent instrumentation of this area.
-Hbg at discharge was 10.2, 8.0 at admission.
-Maintaining oxygen saturation.
#FEN/Renal
-Acute, gapped metabolic acidosis.
-Lactic acid 14.5 --> 11.0 --> 6.1 --> 4.2. Delta delta is normal.
#Non-CO troponin elevation
-Acute, related to cardiac arrest.
-Troponin 0.496 --> 0.969 --> 1.230.
-EKG is non-ischemic.
#Dispo
-ICU status.
-DNR.
-GOC discussion with family, especially if repeat CT shows anoxic brain injury.
Critical Care Time = 45 minutes.
Subjective/Interval History:
Patient remains obtunded.
She is requiring norepinephrine at 12 mcg/kg/min.
Family has been at bedside overnight.
PPM interrogation does not show any tachyarrhythmia/VT/VF. She had an episode of AF/AT at 10:07 AM, lasting 12 minutes.
EEG does not show status epilepticus.
HBG stabilizing.
DATA:
CT Chest/abdomen/pelvis, 02/09/2025:
IMPRESSION:
1. There are displaced anterior right third and fourth ribs fractures with nondisplaced anterior right fifth sixth and seventh rib fractures. There are lucencies in the anterior right first and second ribs although this may be streak artifact. There
is an underlying heterogeneous and mildly hyperdense opacity throughout the right upper chest measuring approximately 8.4 x 5.3 cm which extends towards the right hilum which demonstrate mass effect on the right upper lobe. There is associated
partial collapse of the right upper lobe. This is suspicious for a hematoma.
2. There is a nondisplaced lower sternal body fracture.
3. Changes of prior transcatheter aortic valve replacement and left chest wall pacemaker. The tip of the ventricular lead appears to extend slightly through the inner ventricular septum and into the left ventricle.
4. Small/moderate mildly dense pericardial effusion suspicious for hemopericardium.
5. There is a new hypodensity throughout the superior medial right hepatic lobe extending into the caudate lobe which has the appearance of a liver laceration. A liver infarction is considered less likely.
6. Endotracheal tube tip is at the level of the ana. There is debris within the bilateral mainstem bronchi extending into the bilateral lower lobes which may be sequelae of prior aspiration. There are additional scattered tree-in-bud opacities
throughout the lungs, most pronounced in the lower lobes which may be infectious/inflammatory and represent pneumonitis.
7. There is a new small focus of gas which appears to be present within the anterior aspect of the minor fissure concerning for a tiny pneumothorax.
8. Small volume fluid in the pelvis.
TTE, 02/09/2025:
SUMMARY
1. Ejection fraction is greater than 75% by visual assessment. Left ventricular cavity size is 2.70 cm which is small in size.
2. Right ventricular size and systolic function are within normal limits. Pacer wire noted in the right heart.
3. Well-seated TAVR with peak/mean gradients of 9/4 mmHg; trace aortic regurgitation.
4. Mild tricuspid regurgitation. Estimated pulmonary artery pressure of 23 mmHg assuming a right atrial pressure of 8 mmHg.
5. A small to moderate-sized pericardial effusion (more moderate in size anteriorly in the subcostal views, and small posteriorly). There does not appear to be evidence suggestive of hemodynamic compromise.
6. Compared to a prior transthoracic echocardiogram study from 02/07/2025, a pericardial effusion is now noted.
EEG, 02/10/2025:
IMPRESSION:
No evidence of status epilepticus.
Physical Exam
Vital Signs/Labs
Vital Signs
Temp Pulse Resp BP Pulse Ox
37.7 C 60 20 120/48 99
02/11/25 04:11 02/11/25 06:30 02/11/25 06:30 02/11/25 06:00 02/11/25 06:30
02/09/25 02/10/25 02/11/25
11:59 11:59 11:59
Actual Weight 65.6 kg 65.6 kg
02/11/25 06:59
02/11/25 06:59
PT Cancelled 02/11/25 06:00
INR Cancelled 02/11/25 06:00
APTT 53.9 Sec (23.4-35.0) H 02/09/25 10:55
Magnesium Cancelled 02/11/25 06:00
Triglycerides Cancelled 02/10/25 09:54
02/09/25
10:55
Bgm-R-Gydzuvywnfx Pept 2009
LAB Results
02/09/25 02/09/25 02/10/25
10:55 21:21 02:16
Troponin I 0.493 H* 0.969 H* 1.230 H* D
Physical Exam
Constitutional: No acute distress and Comfortable
EENT: Anicteric, Moist mucous membranes and Other (ET tube in place.)
Cardiovascular: Rhythm & rate is regular, Pedal edema is absent, JVD pressure is normal, S1S2 is normal and Murmur/rub/gallop absent
Respiratory: Respiratory effort normal, Lungs clear to auscul., Wheeze Absent, Crackles Absent and Rhonchi Absent
GI: Soft, Distention absent, Flat, Non tender and Normal bowel sounds
Neuro/Psych: Other (Unresponsive.)
Data Reviewed
-
Date of Service: February 11, 2025
Medical Decision Making: Reviewed Test Results, Independent Historian Assessment and Test Interpretation
EKG: Tracing Personally Visualized and interpreted and Report Reviewed by me
Echo: Tracing Personally Visualized and interpreted and Report Reviewed by me
X-Ray/CT/US/MRI/NUC/PET: Image Personally Visualized and interpreted and Report Reviewed by me
Medical Tests (PFT, Pathology etc): Image Personally Visualized and interpreted, Report Reviewed by me, Discussed with Physician and Discussed with Family
Labs: Labs Reviewed by me
Old Records: Reviewed
--- NOTE | 2025-02-11 08:29 | PTCARENOTE ---
Patient intubated/sedated. No purposeful movements. No cough/gag reflex. No response to peripheral/central pain stimuli. Legs internally rotated, toes pointed and turned in, not rigid. Pupils equal, 2mm, brisk. Occasional facial twitch. NSR/A-paced
with 1st degree AV block and prolonged QT on monitor. Weak pedal pulses. Vent settings AC 20/450/50%/5. ETT 7.5, 23cm. Lungs diminished B/L. OG tube at 55cm to LIS. Minimal brown gastric secretions/drainage. Indwelling lopez in place, lopez care
done. Minimal urine output, 5-10cc/hr. Remains on levo, fent, prop. R femoral triple lumen intact. Pt resting in bed at this time, no evidence of pain/discomfort. Family at bedside. Care ongoing.
[2025-02-11] MEDS: HEPARIN SC (09:28)
[2025-02-11] MEDS: PROTONIX IV IV (09:28)
[2025-02-11] MEDS: NSS (PRESERVATIVE FREE) IV (09:28)
[2025-02-11] MEDS: REFRESH CELLUVISC GEL OPHTH (09:28)
--- NOTE | 2025-02-11 10:14 | CM ---
Spoke with Ambrosio dtr an grandson Bladimir
They are waiting for Chandrika dtr to come in to withdraw her care today
Emotional support given and offered manager culinary
Dtr stated manager culinary and her brush clearer surveying came in yesterday
Cm offered to assist with anything family needs
--- NOTE | 2025-02-11 11:22 | W.PN.INTV ---
Today's Communication / Plan
Recommendations
Continue supportive care
Eventual withdrawal of care
Assessment
-
#1. Cardiac arrest.
- Unclear etiology at this point-no arrhythmias identified on pacemaker interrogation.
- Debris noted in both mainstem bronchi suggestive of aspiration. Likely sequelae of CPR as patient was walking prior to arrest.
- Reportedly patient received shock when border police arrived initially, unknown rhythm. Subsequent rhythm noted to be PEA.
- Cardiology service on case--> echo suggestive of hemopericardium but without tamponade. Well-seated aortic valve and normal ejection fraction.
- Continue pressor support, currently on Levophed, target MAP 65 or above-- currently 6mcg/min
- CT chest with contrast without evidence of pulmonary embolism.
- Continue hemodynamic monitoring.
- Now with shock liver and likely ATN. Not recovering. Oliguric.
-
Unfortunately, no meaningful neurological recovery-likely sustained significant anoxic brain injury.
#2. Ventilator dependent respiratory failure, in the setting of cardiac arrest
-ABG (02/10/2025)-7.42//170
- Continue volume assist-control--without change.
- Serial ABG, lung protective ventilation target tidal volume 6 mL/kg body weight
- Chest x-ray 02/10/2025: shows small bilateral pleural effusions. Patchy parenchymal opacity both lower lobes. Left greater than right.
Stable pulmonary mechanics 02/11/2025.
No plans for weaning trial-family have decided not to pursue aggressive care.
Eventual terminal extubation.
#3. Acute encephalopathy, concern for anoxic injury
-Ongoing myoclonic jerks suggestive of severe anoxic brain injury. Patient appears uncomfortable.
- Continue propofol and fentanyl drip for now. Patient appears comfortable.
- Patient did receive a dose of Keppra-Will defer further therapy to neurology.
- No meaningful neurological recovery at this point.
Chances of recover are very poor and family understands that.
They have decided to at this point de-escalate care. They are waiting for multiple family members and they will withdraw care later today.
#4. Severe metabolic acidosis, due to cardiac arrest/acute kidney injury.
- Persistent nongap metabolic acidosis.
- Patient did receive some bicarbonate.
- No further IV fluids.
No follow-up laboratories at this point
Her hemodynamics has improved
#5. Aspiration pneumonia.
- Suspect consolidative changes are aspiration as a result of CPR
- Continue IV Unasyn-continue for now
- Pressors as needed
#6. Small apical pneumothorax.
- Suspect traumatic related to CPR--not evident on chest x-ray 02/10/2025.
- Follow-up chest x-ray as pneumothorax is at risk of expansion with positive pressure ventilation-Daily chest x-ray or as needed.
#7. Multiple rib fractures, intrathoracic right upper lobe hematoma, hemopericardium, questionable bowel hematoma collection around liver
- All this finding appeared to be traumatic related to CPR
- No additional evaluation regarding this.
Case discussed with cardiology-again, no arrhythmias were noted on pacemaker interrogation.
#8. Thrombocytopenia with coagulopathy/anemia and acute liver injury-->> transaminases greater than 1000.
- Suspect changes related to cardiac arrest and developing multiorgan dysfunction
#9. Acute kidney injury
- Suspect developing ATN with recent cardiac arrest
- Nephrology service on case, s/p bicarb pushes, continue normal saline infusion
- Not a candidate for renal replacement therapy-discussed with family and they would not pursue.
#10. H/o Aortic stenosis
- Status post recent TAVR, cardiology service on case, echo reassuring with well-seated valve.
- Cardiology following.
Other medical diagnoses:
- Hiatal hernia
- Hypothyroidism
- Reported history of gastric outlet obstruction
- Anxiety/depression
DVT prophylaxis. Subcu heparin or Lovenox not indicated in view of developing coagulopathy
GI prophylaxis. IV Protonix
Dr. Wagoner discussed with son daughter at the bedside 02/11/2025 regarding poor prognosis, no significant neurological recovery. They would like to de-escalate care. They are waiting for rest of family members to withdraw care later today.
Continue with current care without change at this point.
Prognosis is poor. Dr. Wagoner updated daughter at bedside 02/10/2025. Her son is coming from [place] today in the afternoon, if there is no improvement they are considering withdrawal of care.
-
Critical Care time 41 mins -- The patient is admitted for acute critical illness for the treatment of vital organ failure and/or prevention of further life-threatening conditions. Total care includes time spent in review of history, physical exam,
medications, hemodynamic/ventilator parameters, laboratory data, imaging and discussion with house staff, pharmacy, respiratory therapy, ladderman, and nursing.
Data:
CT C/A/P 01/2025: 1. There are displaced anterior right third and fourth ribs fractures with nondisplaced anterior right fifth sixth and seventh rib fractures. There are lucencies in the anterior right first and second ribs although this may be
streak artifact. There is an underlying heterogeneous and mildly hyperdense opacity throughout the right upper chest measuring approximately 8.4 x 5.3 cm which extends towards the right hilum which demonstrate mass effect on the right upper lobe.
There is associated partial collapse of the right upper lobe. This is suspicious for a hematoma.
2. There is a nondisplaced lower sternal body fracture.
3. Changes of prior transcatheter aortic valve replacement and left chest wall pacemaker. The tip of the ventricular lead appears to extend slightly through the inner ventricular septum and into the left ventricle.
4. Small/moderate mildly dense pericardial effusion suspicious for hemopericardium.
5. There is a new hypodensity throughout the superior medial right hepatic lobe extending into the caudate lobe which has the appearance of a liver laceration. A liver infarction is considered less likely.
6. Endotracheal tube tip is at the level of the ana. There is debris within the bilateral mainstem bronchi extending into the bilateral lower lobes which may be sequelae of prior aspiration. There are additional scattered tree-in-bud opacities
throughout the lungs, most pronounced in the lower lobes which may be infectious/inflammatory and represent pneumonitis.
7. There is a new small focus of gas which appears to be present within the anterior aspect of the minor fissure concerning for a tiny pneumothorax.
8. Small volume fluid in the pelvis.
CXR 01/2025: Endotracheal tube tip projects over the midthoracic trachea, approximately 4.4 cm above the ana.
New confluent airspace opacity projecting over the right upper lung which likely represents partial collapse, possibly secondary to mucous plugging. Consider bronchoscopy for further evaluation.
ECHO 01/2025: 1. Ejection fraction is greater than 75% by visual assessment. Left ventricular cavity size is 2.70 cm which is small in size.
2. Right ventricular size and systolic function are within normal limits. Pacer wire noted in the right heart.
3. Well-seated TAVR with peak/mean gradients of 9/4 mmHg; trace aortic regurgitation.
4. Mild tricuspid regurgitation. Estimated pulmonary artery pressure of 23 mmHg assuming a right atrial pressure of 8 mmHg.
5. A small to moderate-sized pericardial effusion (more moderate in size anteriorly in the subcostal views, and small posteriorly). There does not appear to be evidence suggestive of hemodynamic compromise.
6. Compared to a prior transthoracic echocardiogram study from 02/07/2025, a pericardial effusion is now noted.
TAVR and PPI 01/2025
LHC and RHC 01/2025: 1. Right dominant circulation with luminal irregularities and 10-20% lesions in the proximal and mid LAD, a 20% lesion in the proximal ramus and luminal irregularities in the RCA.
2. Normal filling pressures (PCWP = 11 mmHg at 56.2 kg).
3. Severe aortic valve stenosis on echocardiography.
4. Normal cardiac performance parameters (cardiac index = 1.92 L/min/m�, AVO2 difference = 4.46 volume%, cardiac power output = 0.67 W, Sowmya = 2.67).
5. Severely elevated SVR (2482 dynes*seconds*cm^-5).
Subjective Dataa
Subjective Data
Date of Service:
Date of Service: February 11, 2025
Chief Complaint: Life Skills Specialist Follow Up (Status postcardiac arrest/acute respiratory failure requiring intubation mechanical ventilation)
Subjective:
Unresponsive, on mechanical ventilation.
Review of Systems
General: Unobtainable - Pat Unresp
Objective Data
Data Reviewed
Vital Signs / I&O / Oxygen:
Vital Signs
Temp Pulse Resp BP Pulse Ox
99.8 F 60 20 120/48 100
02/11/25 08:00 02/11/25 06:30 02/11/25 06:30 02/11/25 06:00 02/11/25 09:12
Intake and Output
02/10/25 02/11/25 02/12/25
06:59 06:59 06:59
Intake Total 2420 / 2520 1333.7 / 1389.0 198.7 / 198.7
Output Total 80 / 90
Balance 2405 / 2500 1253.7 / 1299.0 178.7 / 178.7
SaO2 [A/C] 100
SaO2 100
Physical Exam
General: Comfortable
HEENT: Normocephalic and Other (ET tube in place)
Cardiovascular: S1-S2
Respiratory: Clear and ET Tube (No secretions)
GI: Soft and Non Distended
Neurology: Other (Unresponsive, having myoclonic jerks. Very irritable.)
Skin: Warm
Labs/Micro/Reports
Lab Data
02/11/25 06:59
02/11/25 06:59
Laboratory Results
02/11/25
06:00
PT Cancelled
INR Cancelled
--- NOTE | 2025-02-11 12:15 | PTCARENOTE ---
Assessment unchanged, family at bedside.
[2025-02-11] MEDS: NOVOLOG FLEXPEN-LOW RESISTANCE SC (15:22)
[2025-02-11] MEDS: SUBLIMAZE 100 IV (15:41)
--- NOTE | 2025-02-11 16:40 | W.PN.UPDATE ---
Update Note
Progress Note Update
Will proceed with comfort measure.
Discontinue unnecessary medications
Will continue fentanyl drip after extubation.
Discontinue propofol drip
Morphine and Ativan will be added for distress
--- NOTE | 2025-02-11 16:40 | PTCARENOTE ---
Family ready for patient extubation. Saw Boss notified via TT. Awaiting comfort care orders.
--- NOTE | 2025-02-11 16:57 | RESPNOTE ---
Pt terminal extubated to room air at 16:55
--- NOTE | 2025-02-11 17:00 | PTCARENOTE ---
Pt extubated at 16:55. Family at bedside.
[2025-02-11] MEDS: ATIVAN 1 MG IV (17:19)
[2025-02-11] MEDS: ROBINUL 0.2 MG IV (17:29)
[2025-02-11] MEDS: MORPHINE SULFATE 2 MG IV (17:41)
[2025-02-11] MEDS: SUBLIMAZE 25 MCG IV (18:18)
--- NOTE | 2025-02-11 19:40 | W.PN.DEATH ---
Addendum entered and electronically signed by PETR Montoya 02/11/25 20:00:
Patient Pronounced Time of : 19:30
Original Note:
Pronouncement of
-
Called to see patient to pronounce.
No spontaneous heart tones or respirations noted.
Patient not responsive to verbal stimuli.
Patient is pronounced .
Time of : 19:13
Date of : 02/11/25
Cause of : Multiple System Failure due to Cardiac Arrest
Family Notified: Yes
--- NOTE | 2025-02-11 20:00 | PTCARENOTE ---
Pt at 1912. PETR, Barney Fitzgerald, pronounced the patient. GOL called, pt did not meet criteria for donation. Pt's personal belongings taken w/ family. All peripheral and central lines pulled. [place] [facility] [place]
--- NOTE | 2025-02-11 21:29 | W.DCSUMMARY ---
Documented by User: Shelby Craft MD, Resident 02/18/25 15:15
Discharge Summary
Discharge Data
Date of Admission: 02/09/25
Date of Discharge: 02/11/25
-
Pending Results: No
Hospital Course
89yoF PMH TAVR 02/06 w/ pacemaker placement sent home 3 days prior presenting from out of hospital cardiac arrest with ROSC, intubated.
Pt was not alert, intubated on presentation placed on pressors and ventilator support. The next morning, AFVSS off pressors being paced. Pt exhibited clonic motion, cerebell capturing no seizure activity. Overnight, lactic acidosis improved 4.2 from
14.5 with continued metabolic acidosis. SHERWIN worsened Cr 2.2 (1.6). LFTs steadily increased in setting of shock liver with coagulopathy. CT on presentation demonstrated fractured ribs with hematoma. Cardiology, entry level chemist, neurology evaluated for
ventilator dependent respiratory failure in setting of anoxic brain injury. Once family arrived, discussions of prognosis and GOC, decision was made to place pt back on sedation with eventual transition to comfort measures with morphine and ativan.
Discharge Plan
-
Patient Disposition:
Date/Time
Date/Time: 02/11/25 19:30
Discharge Date and Time
Discharge Date/Time: 02/11/25 19:30
Print Language: GREEK

Documented by User: Brain Groves DO 02/24/25 15:47
Discharge Summary
Discharge Data
Date of Admission: 02/09/25
Date of Discharge: 02/11/25
Discharge Plan
-
Patient Disposition:
Date/Time
Date/Time: 02/11/25 19:30
Discharge Date and Time
Discharge Date/Time: 02/11/25 19:30
Print Language: GREEK
== END 2025-02-11 19:30 | disposition expired | DRG 296 ==
LOC: ICU 13:45
PROVIDERS: Nurse Practitioner Primary Care; Psychiatry & Neurology Neurology; ADMITTING PHYSICIAN Internal Medicine; ATTENDING PHYSICIAN Internal Medicine; CONSULT PHYSICIAN Internal Medicine; CONSULT PHYSICIAN Internal Medicine Cardiovascular Disease; CONSULT PHYSICIAN Specialist; EMERGENCY PHYSICIAN Emergency Medicine; FAMILY PHYSICIAN Nurse Practitioner Adult Health; OTHER PHYSICIAN Psychiatry & Neurology Neurology
PROC: 5A1945Z Respiratory Ventilation, 24-96 Consecutive Hours (ICD-10-PCS; 2025-02-09)
PROC: XX20X89 Monitoring of Brain Electrical Activity, Computer-aided Detection and Notification, New Technology Group 9 (ICD-10-PCS; 2025-02-09)
PROC: 06HM33Z Insertion of Infusion Device into Right Femoral Vein, Percutaneous Approach (ICD-10-PCS; 2025-02-09)
PROC: B54BZZA Ultrasonography of Right Lower Extremity Veins, Guidance (ICD-10-PCS; 2025-02-09)
PROC: 03HY32Z Insertion of Monitoring Device into Upper Artery, Percutaneous Approach (ICD-10-PCS; 2025-02-09)
DX: I46.9 Cardiac arrest, cause unspecified (principal); J69.0 Pneumonitis due to inhalation of food and vomit; J96.00 Acute respiratory failure, unspecified whether with hypoxia or hypercapnia; K72.00 Acute and subacute hepatic failure without coma; R57.9 Shock, unspecified; N17.9 Acute kidney failure, unspecified; E87.20 Acidosis, unspecified; G93.1 Anoxic brain damage, not elsewhere classified; D68.4 Acquired coagulation factor deficiency; I31.2 Hemopericardium, not elsewhere classified; M96.A1 Fracture of sternum associated with chest compression and cardiopulmonary resuscitation; M96.A3 Multiple fractures of ribs associated with chest compression and cardiopulmonary resuscitation; S27.0XXA Traumatic pneumothorax, initial encounter; S36.113A Laceration of liver, unspecified degree, initial encounter; Z99.11 Dependence on respirator [ventilator] status; Z95.0 Presence of cardiac pacemaker; Z95.2 Presence of prosthetic heart valve; E03.9 Hypothyroidism, unspecified; J45.909 Unspecified asthma, uncomplicated; F32.A Depression, unspecified; F41.9 Anxiety disorder, unspecified; K21.9 Gastro-esophageal reflux disease without esophagitis; N32.81 Overactive bladder; Z96.653 Presence of artificial knee joint, bilateral; Z90.711 Acquired absence of uterus with remaining cervical stump; Z79.890 Hormone replacement therapy; Z79.899 Other long term (current) drug therapy; I45.10 Unspecified right bundle-branch block; I25.10 Atherosclerotic heart disease of native coronary artery without angina pectoris; I10 Essential (primary) hypertension; E78.00 Pure hypercholesterolemia, unspecified; Z66 Do not resuscitate; G25.3 Myoclonus; D69.6 Thrombocytopenia, unspecified; I44.0 Atrioventricular block, first degree; R56.9 Unspecified convulsions; Z79.82 Long term (current) use of aspirin; Z96.643 Presence of artificial hip joint, bilateral
CPT/HCPCS: 70450; 71045; 71260; 74177; 80048; 80053; 82805; 82962; 83605; 83880; 84478; 84484; 85025; 85027; 85610; 85730; 93005; 93308; 93321; 93325; 94002; 94003; 95708; 96374; 96375; 99291; Q9967